=== PATIENT | male | born 1945 | race Caucasian/White ===

== ENCOUNTER 2018-06-10 16:25 | Inpatient (IN) ==
[2018-06-10] MEDS ORDERED: SOLU-MEDROL IV ONE (17:25)
[2018-06-10] MEDS ORDERED: ROCEPHIN 1 GM in NS 50 ML IV ONE (17:25)
[2018-06-10] MEDS ORDERED: NS 1,000 ML IV ONE (17:25)
[2018-06-10] MEDS ORDERED: DUONEB (A & A) INH ONE ×2 (17:25→20:36)
[2018-06-10] MEDS ORDERED: ZITHROMAX 500 MG/NS 500 MG/250 ML IVPB IV ONE (17:25)
[2018-06-10] MEDS ORDERED: ZOSYN 3.375 GM in NS 50 ML IV ONE (17:25)
--- NOTE | 2018-06-10 18:26 | Diag Imaging Result Doc PS360 ---
EXAM: CT ANGIOGRM PULMONARY ARTERIES 06/10/2018 HISTORY: dyspnea, history of lung CA TECHNIQUE: This exam was performed using automated exposure control, adjustment of mA or kV according to patient size, and/or use of iterative reconstruction technique. COMMENT: The current examination is compared to the previous study of 03/20/2016. There is no evidence of filling defects in the pulmonary arteries. The aorta is normal in caliber without evidence of dissection. There is a left pleural effusion. There is some increase in size of the precarinal node which has increased in short axis dimension from 8 to 11 mm. There are multiple nodular opacities present in both lower lobes the right middle lobe and the left upper lobe as well as denser areas of consolidation in the parahilar region of the right lower lobe and extensive consolidation in the left lower lobe. Some of this is presumably due to metastatic disease. The extent of some of the opacities has clearly increased since the previous examination. This is most notable just above the right hemidiaphragm in the lower lobe on image 95 where there is an opacity measuring over 2 cm in transverse dimension which was previously less than 9 mm in diameter. There are old right rib fractures. The appearance of the regional skeleton has not changed significantly since the previous study. IMPRESSION: Worsened pulmonary metastatic disease. No evidence of pulmonary emboli. Left pleural effusion. Electronically signed by Emigdio Saha 06/10/2018 6:23 PM
[2018-06-10 18:52] LABS: BASO# 0.02 X1000 (0.0-0.2); BASO% 0.3 % (0.0-0.8); EOS# 0.11 X1000 (0.0-0.7); EOS% 1.5 % (0.0-10.0); HEMOGLOBIN 15.5 g/dL (14.0-18.0); LYMPH# 1.51 X1000 (1.2-3.4); MCH 26.5 PG (27-31); MCHC 32.3 g/dL (33-37); MCV 82.1 FL (81-99); MONO# 0.76 X1000 (0.11-0.59); MONO% 10.1 % (1.7-9.3); MPV 9.2 FL (7.4-10.4); NEUT# 5.16 X1000 (1.4-6.5); NEUT% 68.1 % (42.2-75.2); PLT 253 X1000 (130-400); RBC 5.85 XMIL (4.7-6.1); RDW 15.1 % (11.5-14.5); WBC 7.56 X1000 (4.8-10.8)
--- NOTE | 2018-06-10 18:59 | PROVIDER DOCUMENTATION ---
This chart was entered by Edna Garcia Scribe, acting as scribe for Deon Scanlon MD. HPI-Respiratory General - General Source: patient, family (/daughter) - History of Present Illness-Resp Quality of Pain: reports: fullness Severity in ED: reports: moderate Onset/Duration: reports: 24 hours ago Timing: reports: still present, constant Exposure: reports: unknown cause Cough Quality/Degree: reports: productive cough (green sputum) Episode Frequency: other (2nd visit toa) Current Respiratory Medication Therapy: Initiated see nurses note Modifying Factors: worse with: exertion, lying down Associated Symptoms: reports: cough, hurts to breathe, shortness of breath Similar Symptoms Previously?: Yes Recently seen or treated by another doctor?: Yes (aw dr scanlon earlier today ) <Deon Scanlon - Last Filed: 06/10/18 18:56> <Rohan Jaquez - Last Filed: 06/10/18 21:13> - General Chief Complaint: Shortness of Breath Stated Complaint: SOB,LUNG CANCER Time Seen by Provider: 06/10/18 16:42 Allergies/Adverse Reactions: Patient Allergies Allergy/AdvReac Type Severity Reaction Status Date / Time aspirin Allergy Unknown Verified 06/10/18 08:55 [From Excedrin Migraine] caffeine Allergy Unknown Verified 06/10/18 08:55 [From Excedrin Migraine] Home Medications: Home Medication List Medication Instructions Recorded Confirmed Last Taken Type Metoprolol [Lopressor] 50 mg PO DAILY 08/21/14 03/20/16 06/10/18 History Inhaler,Assist Dev,Small Mask 1 each MC Q4H PRN #1 spacer 03/08/16 03/20/16 Unknown Rx [Aerochamber Plus Flow-Vu] Levofloxacin [Levaquin] 500 mg PO DAILY #10 tab 07/06/17 Unknown Rx Hydrocodone/Acetaminophen 1 tab PO Q6HR PRN 06/10/18 06/10/18 06/10/18 History [Hydrocodone-Acetamin 7.5-325] - History of Present Illness-Resp Nature of Presenting Problem: 72 yowm presents to the ed with his and daughter with c/o sob. pt was seen earlier today by dr scanlon for same complaint and refused abx and wanted to be discharged. pt sts once he was home he became more sob and knew it would only get worse tonight so they came back to ed. pt sts he will take the CT and abx now and will do what the dr suggest. pt was dx with lung cancer and 12 years ago stopped all tx and was told he had 2 months to live. pt is on continuos home O2 (Edna Garcia) 72 yowm presents to the ed with his and daughter with c/o sob. pt was seen earlier today by dr scanlon for same complaint and refused abx and wanted to be discharged. pt sts once he was home he became more sob and knew it would only get worse tonight so they came back to ed. pt sts he will take the CT and abx now and will do what the dr suggest. pt was dx with lung cancer and 12 years ago stopped all tx and was told he had 2 months to live. pt is on continuos home O2 (Deon Scanlon) Review of Systems - Adult - REVIEW OF SYSTEMS - ADULT Constitutional: denies: chills, fever Eyes: reports: no symptoms reported Ears, Nose, Mouth & Throat: reports: no symptoms reported Cardiovascular: denies: chest pain, palpitations Respiratory: reports: see HPI, cough (green sputum), dyspnea on exertion, shortness of breath Gastrointestinal: denies: diarrhea, nausea, vomiting Genitourinary: reports: no symptoms reported Musculoskeletal: denies: back pain, neck pain Integumentary: reports: no symptoms reported Neurological: denies: dizziness/vertigo, headache/migraines Psychiatric: reports: no symptoms reported Endocrine: reports: no symptoms reported Hematologic/Lymphatic: reports: no symptoms reported Allergic/Immunologic: reports: no symptoms reported All Other Systems: Reviewed and Negative <Deon Scanlon - Last Filed: 06/10/18 18:56> Past History - Adult - PAST MEDICAL HISTORY-ADULT Review of Records: reports: Old Records Reviewed, Nursing Assessment Review, Medications Reviewed, Social history reviewed & non-contributory. Major Childhood Illnesses: reports: denies history Cardiovascular: reports: HTN. denies: CHF, PR Respiratory: reports: cancer (lung--still had but is no longer wanting treatment ), pneumonia Gastrointestinal: reports: denies history Genitourinary: reports: denies history Musculoskeletal: reports: arthritis (RA), chronic pain Neurological: reports: denies history Endocrine/Immune: reports: denies history Other Conditions: reports: denies history - PRIOR SURGERIES/PROCEDURES Surgical/Procedure History: reports: other (lobectomy RLL, RML; port placement) - IMMUNIZATION STATUS Childhood Immunizations: See Nurse Assessment Flu Vaccine: See Nurse Assessment - FAMILY HISTORY Family History: reviewed, not pertinent - SOCIAL HISTORY Smoking: denies Substance Use: denies Living Situation: family <Deon Scanlon - Last Filed: 06/10/18 18:56> Physical Exam-General - PHYSICAL EXAM-ADULT Initial Vital Signs Reviewed: Yes - CONSTITUTIONAL General Appearance: alert, mild distress, obese - EYES Eyes: PERRL/EOMI, pink conjunctivae - HEAD, EARS, NOSE, MOUTH & THROAT HENMT: moist mucous membranes, normal ENT inspection - NECK Neck: full range of motion, supple, normal inspection - RESPIRATORY Respiratory: respiratory distress (mild), decreased breath sounds, rhonchi (L>R) , increased rate (24) - CARDIOVASCULAR Cardiovascular: normal peripheral pulses, regular rate, rhythm - GASTROINTESTINAL (ABDOMEN) Abdominal Exam: normal bowel sounds, non tender, soft - LYMPHATIC Lymphatic: no adenopathy - MUSCULOSKELETAL Back Exam: normal inspection, no CVA tenderness, no vertebral tenderness Extremity: normal range of motion, normal gait, normal inspection, normal capillary refill - SKIN Integumentary: normal color, normal turgor, warm/dry - NEUROLOGIC Neurologic: grossly normal, no motor/sensory deficits - PSYCHIATRIC Psych/Mental Status: normal mood/affect, normal thought content, normal thought process, oriented x 3 <Deon Scanlon - Last Filed: 06/10/18 18:56> Progress - PLAN OF CARE/RESULTS Result Diagrams: 06/10/18 18:15 - REASSESSMENT Reassessment #1 Time Reassessed: 18:57 Status: unchanged (3 duonebs, IV rocephin and zithromax ordered for possible pneumonia. IV steroids (lower dose as this is second dose today) ordered. Awaiting re-evaluation) - CHANGE OF SHIFT REPORT (ED Provider) Report Given and Care Transferred to:: Dr. Jaquez Time of Transfer: 18:58 Items Pending: Labs, Other (re-eval after nebs) <Deon Scanlon - Last Filed: 06/10/18 18:56> - PLAN OF CARE/RESULTS Result Diagrams: 06/10/18 18:15 06/10/18 18:15 <Rohan Jaquez - Last Filed: 06/10/18 21:13> - PLAN OF CARE/RESULTS Progress/Plan/Lab Results: Vital Signs - 8 hr 06/10/18 16:36 06/10/18 18:17 Temperature 98.6 F Pulse Rate 79 112 H Respiratory Rate 22 24 Blood Pressure 161/80 O2 Sat by Pulse Oximetry 96 98 Laboratory Results - last 24 hr 06/10/18 06/10/18 06/10/18 18:15 18:15 18:15 WBC 7.56 RBC 5.85 Hgb 15.5 Hct 48.0 MCV 82.1 MCH 26.5 L MCHC 32.3 L RDW Std Deviation 15.1 H Plt Count 253 MPV 9.2 Immature Gran % (Auto) 0.0 Neut % (Auto) 68.1 Lymph % (Auto) 20.0 L [place] % (Auto) 10.1 H Eos % (Auto) 1.5 Baso % (Auto) 0.3 Immature Gran # (Auto) 0.00 Neut # (Auto) 5.16 Lymph # (Auto) 1.51 [place] # (Auto) 0.76 H Eos # (Auto) 0.11 Baso # (Auto) 0.02 Sodium 135 L Potassium 4.4 Chloride 99 Carbon Dioxide 22 L Anion Gap 14 BUN 11 Creatinine 0.8 Estimated GFR/1.73 m2 > 60 BUN/Creatinine Ratio 14 Glucose 100 Calculated Osmolality 270 Calcium 9.1 Troponin T Gmw-N-Fmcjxupuiuv Pept Plasma Lactate 1.1 06/10/18 06/10/18 18:15 18:15 WBC RBC Hgb Hct MCV MCH MCHC RDW Std Deviation Plt Count MPV Immature Gran % (Auto) Neut % (Auto) Lymph % (Auto) [place] % (Auto) Eos % (Auto) Baso % (Auto) Immature Gran # (Auto) Neut # (Auto) Lymph # (Auto) [place] # (Auto) Eos # (Auto) Baso # (Auto) Sodium Potassium Chloride Carbon Dioxide Anion Gap BUN Creatinine Estimated GFR/1.73 m2 BUN/Creatinine Ratio Glucose Calculated Osmolality Calcium Troponin T < 0.010 Hhi-C-Lnpyqewtuqr Pept 176 Plasma Lactate Orders Category Date Time Status CTA [CT ANGIOGRM PULMONARY ARTERIES] [CT] Stat Exams 06/10/18 17:28 Completed BASIC METABOLIC PANEL [CHEM] Stat Lab 06/10/18 18:15 Completed CBC WITH ELECTRONIC DIFF [HEME] Stat Lab 06/10/18 18:15 Completed LACTATE, PLASMA [CHEM] Stat Lab 06/10/18 18:15 Completed PRO B-NATRIURETIC PEPTIDE Stat Lab 06/10/18 18:15 Completed SPUTUM CULTURE WITH GRAM STAIN [RM] Stat Lab 06/10/18 17:28 Uncollected TROPONIN T Stat Lab 06/10/18 18:15 Completed 0.9% Sodium Chloride Inj [Ns] 1,000 ml Med 06/10/18 17:25 Discontinued IV 999 mls/hr Albuterol 2.5MG/Ipratrop 0.5MG [Duoneb (A & A)] Med 06/10/18 20:36 Discontinued 3 ml INH NOW ONE Albuterol 2.5MG/Ipratrop 0.5MG [Duoneb (A & A)] Med 06/10/18 17:25 Discontinued 9 ml INH NOW ONE Azithromycin 500 mg/Ns [Zithromax 500 mg/Ns] Med 06/10/18 17:25 Discontinued 500 mg in 250 ml IV NOW CefTRIAXONE [Rocephin] 1 gm Med 06/10/18 17:25 Discontinued 0.9% Sodium Chloride Inj [Ns] 50 ml IV NOW Hydrocodone/APAP 5 mg/325 mg [Unity-5] Med 06/10/18 20:35 Discontinued 2 each PO NOW ONE Methylprednisolone Sod Succ [Solu-Medrol] Med 06/10/18 17:25 Discontinued 80 mg IV NOW ONE Piperacillin/Tazobactam [Zosyn] 3.375 gm Med 06/10/18 17:25 Discontinued 0.9% Sodium Chloride Inj [Ns] 50 ml IV NOW Aerosol Treatments Routine Oth 06/10/18 17:26 Completed Aerosol Treatments Routine Oth 06/10/18 20:36 Active Aerosol Treatments Stat Oth 06/10/18 17:26 Completed Aerosol Treatments Stat Oth 06/10/18 20:36 Active blood cultures were done on 1st visit today so there will be no redraw this visit. pt ws seen earlier today and offered abx and pt refused abx and just wanted to go home. (Edna Garcia) blood cultures were done on 1st visit today so there will be no redraw this visit. pt ws seen earlier today and offered abx and pt refused abx and just wanted to go home. (Deon Scanlon) Departure <Deon Scanlon - Last Filed: 06/10/18 18:56> - Departure Date of Disposition Decision: 06/10/18 Time of Disposition Decision: 21:13 Certified Medical Emergency: Emergent - Critical Care Note This patient required my direct & personal management of CC.: No <Rohan Jaquez - Last Filed: 06/10/18 21:13> - Departure DIAGNOSIS: Shortness of breath Disposition: ADMITTED INPATIENT 09 Condition: Stable Referrals and Follow-Ups: Margo Rocha MD [Primary Care Provider] - Attestation - Physician/ ADALGISA Attestation Patient care was provided by Advanced Practice Provider:: No The physician spent face to face time with patient:: Yes Advanced Practice Provider documentation review:: Supervising physician onsite and consulted in the evaluation and care of this patient. The physician did have a face to face encounter with the patient. <Deon Scanlon - Last Filed: 06/10/18 18:56> - Physician/ ADALGISA Attestation Patient care was provided by Advanced Practice Provider:: No The physician spent face to face time with patient:: Yes Advanced Practice Provider documentation review:: Supervising physician onsite and consulted in the evaluation and care of this patient. The physician did have a face to face encounter with the patient. <Rohan Jaquez - Last Filed: 06/10/18 21:13> This chart was documented by the indicated scribe, (Edna Garcia Scribe) and accurately reflects the services I performed and decisions made by , Deon Scanlon MD, as attested by the provider's signature.
[2018-06-10 19:13] LABS: AGAP 14; BUN 11 mg/dL (8-22); CALCIUM 9.1 mg/dL (8.8-10.2); CHLORIDE 99 mmol/L (98-107); COSMO 270; CREATININE 0.8 mg/dL (0.7-1.2); ESTIMATED GFR > 60; GLUCOSE 100 mg/dL (70-104); POTASSIUM 4.4 mmol/L (3.5-5.1); SODIUM 135 mmol/L (136-145); TCO2 22 mmol/L (25-35)
[2018-06-10] MEDS ORDERED: NORCO-5 PO ONE (20:35)
[2018-06-10] MEDS ORDERED: ZOFRAN IV PRN (23:15)
[2018-06-10] MEDS ORDERED: DUONEB (A & A) INH PRN (23:15)
[2018-06-10] MEDS ORDERED: TYLENOL PO PRN (23:15)
[2018-06-10 23:35] LABS: INR 0.95; PROTIME 13.5 Seconds (11.0-16.0)
[2018-06-10 23:36] LABS: PTT 32.4 Seconds (22.3-41.8)
[2018-06-11] MEDS: DUONEB (A & A) INH SCH ×7 (00:05→23:50)
[2018-06-11] MEDS: NORCO-7.5 PO PRN ×3 (04:03→18:43)
--- NOTE | 2018-06-11 07:23 | EKG Report ---
Test Performed on : 06/10/2018 10:40:16 PM Test Reason : SOB Blood Pressure : / mmHG Vent. Rate : 095 BPM Atrial Rate : 095 BPM P-R Int : 212 ms QRS Dur : 088 ms QT Int : 370 ms P-R-T Axes : 032 -27 031 degrees QTc Int : 464 ms Sinus rhythm. with sinus arrhythmia. with 1st degree AV block. Otherwise normal ECG When compared with ECG of 10-JUN-2018 09:16, (Unconfirmed) No significant change was found Confirmed by Briseyda FLOR, Angelito Cheung ([id number]) on 06/11/2018 9:22:28 AM
[2018-06-11 07:40] LABS: HEMATOCRIT 45.2 % (42.0-52.0); HEMOGLOBIN 14.7 g/dL (14.0-18.0); IMM GRAN# 0.02 X1000 (0.0-0.04); IMM GRAN% 0.3 % (0.0-0.5); LYMPH% 5.8 % (20.5-51.1); MCH 26.6 PG (27-31); MCHC 32.5 g/dL (33-37); MCV 81.9 FL (81-99); MONO# 0.11 X1000 (0.11-0.59); MONO% 1.6 % (1.7-9.3); MPV 9.1 FL (7.4-10.4); NEUT# 6.35 X1000 (1.4-6.5); NEUT% 92.3 % (42.2-75.2); PLT 231 X1000 (130-400); RBC 5.52 XMIL (4.7-6.1); RDW 14.9 % (11.5-14.5); WBC 6.88 X1000 (4.8-10.8)
[2018-06-11 07:55] LABS: BANDS 10 % (0-1); LYMPHS 10 % (21-51); MONO 2 % (1-9); SEGS 78 % (42-75)
[2018-06-11 07:58] LABS: AGAP 15; ALBUMIN 3.7 g/dL (3.5-5.0); ALKALINE PHOSPHATASE 86 U/L (32-122); BUN 13 mg/dL (8-22); CALCIUM 9.1 mg/dL (8.8-10.2); CHLORIDE 96 mmol/L (98-107); COSMO 269; CREATININE 0.9 mg/dL (0.7-1.2); ESTIMATED GFR > 60; GLUCOSE 141 mg/dL (70-104); GOT 16 U/L (10-34); GPT 13 U/L (10-44); SODIUM 133 mmol/L (136-145); TCO2 22 mmol/L (25-35); TOTAL BILIRUBIN 0.42 mg/dL (0.20-1.00); TOTAL PROTEIN 7.5 g/dL (6.3-8.3)
[2018-06-11] MEDS: SOLU-MEDROL IV SCH ×2 (09:16→21:56)
[2018-06-11] MEDS: LOPRESSOR PO SCH (09:16)
[2018-06-11] MEDS: LOVENOX SUBQ SCH (09:17)
[2018-06-11] MEDS: LIDODERM TOP SCH (11:45)
--- NOTE | 2018-06-11 12:12 | HISTORY AND PHYSICAL ---
PRIMARY CARE PHYSICIAN: Dr. Rocha ONCOLOGIST: Previously Dr. Thomas. DATE AND TIME: 06/10/2018 at 2130. CHIEF COMPLAINT: Dyspnea. HISTORY OF PRESENT ILLNESS: Mr. Travis Grove is a 72-year-old male with a past medical history of lung cancer status post right middle and right lower lobectomies and chemotherapy. He also has a history of arthritis and hypertension. The patient states that he did receive chemotherapy treatments for a period of 5 years, though in 11/2011, the patient decided not to receive any further chemotherapy. This was at the time of his last treatment. The last time that he was seen by Dr. Thomas was in 2014. Since that time, the patient has continued to not pursue any further treatment for his lung cancer, though approximately a week and a half ago, the patient did have a productive cough with initially white-colored sputum though now states that it has been greenish brown. He also did have some body aches. He states that secondary to this, he did start an vwwi-ebo-suzhhvr medicine for prophylactic treatment of the flu. The medication name is oscillococcinum. The patient states that the first dose he took of this he did not have any adverse symptoms, though after he took the second dose, he did begin to have dyspnea. The patient states that his shortness of breath started on Thursday, though it continued to get worse. He did present to the ER early morning for treatment. He was treated and ultimately discharged. The patient states that after returning home, his symptoms did not improve, and he returned back to the ER on evening for further treatment and evaluation. The patient denies any headache or dizziness. He denied any chest pain. He denied any abdominal pain, nausea, vomiting or diarrhea. He denied any dysuria or urinary frequency, though did state that he has occasional swelling in his lower extremities, though this is not present at this time. He denied having any fever. Upon evaluation in the ER, they did perform CT angiogram of pulmonary arteries which did show that the patient had a left pleural effusion. He had an increase in the size of a precarinal node. There were also multiple nodular opacities present in both inferior lobes of the right and left lung as well as the right middle lobe and left upper lobe. There were also denser areas of consolidation in the perihilar region and extensive consolidation in the left lower lobe. This was believed due to be due to metastatic disease. There were also some opacities that were increased in size since the previous exam. There was no evidence of a pulmonary emboli. Despite the patient taking breathing treatments at home, his dyspnea has worsened. At this time, he will be admitted for further treatment and evaluation of his dyspnea and possible pneumonia as well as for a consult with Oncology with Dr. Thomas. REVIEW OF SYSTEMS: A 14-point review of systems was conducted with the patient , and all were negative except for pertinent positives mentioned in the above HPI. PAST MEDICAL HISTORY: 1. Malignant lung cancer. 2. Arthritis. 3. Hypertension. 4. Chronic pain. 5. History of chemotherapy for a period of 5 years, which the patient ultimately did decide to stop treatment in 11/2011 and has not had any since. PAST SURGICAL HISTORY: 1. Right lower and middle lobectomy. 2. Fatty tumor removal in the right groin area. ALLERGIES: The patient has allergies listed of aspirin and caffeine, though the patient states that he specifically cannot take Excedrin Migraine, that he does take aspirin daily with no reported adverse reactions and does have caffeine intake with no reported adverse reactions. HOME MEDICATIONS: 1. [place] 7.5 mg 1 tablet p.o. q.6 hours p.r.n. for pain. 2. Metoprolol 25 mg p.o. daily. SOCIAL HISTORY: The patient has no known history of alcohol, tobacco, or illicit drug use. He is . His was present at bedside during our examination. The patient does require ambulation assistance with cane and at times a motorized scooter or motorized wheelchair. FAMILY HISTORY: Positive for his mother passing away at age 86 secondary to complications from heart disease. His father had a history of heart disease as well and lung disease. DIAGNOSTIC DATA: Laboratory results show white blood cell count is 7560, hemoglobin 15.5, hematocrit 38, platelet count is 253. PT is 13.5. INR is 0.95. PTT is 32.4. Sodium is 135, potassium 4.4, chloride 99, serum bicarb is 22, BUN is 11, creatinine 0.8, glucose 100, calcium 9.1. Troponin is less than 0.01. ProBNP is 176. Plasma lactate is 1.1. CT angiogram of pulmonary arteries did show worsened pulmonary metastatic disease with multiple nodular opacities in both lungs as well as denser areas of consolidation. This was presumed to be secondary to metastatic disease. There was also a left pleural effusion, though there was no evidence of pulmonary embolism. Please see CT report for further detail of findings. PHYSICAL EXAMINATION: VITAL SIGNS: Temperature is 98.2, heart rate 96, respirations 20, blood pressure 148/64, oxygen saturation is 97% on nasal cannula at 4 L. GENERAL: Mr. Grove is a very pleasant 72-year-old male. He is resting in the ER stretcher. He was in no acute distress. He was awake and alert and able to answer all questions appropriately. HEENT: Head is atraumatic and normocephalic. Pupils are equal, round and reactive to light, were 3 mm bilaterally and brisk. Oral mucosa was moist. Oropharynx was clear. NECK: Supple. Trachea midline. CARDIOVASCULAR: The patient has normal S1 and S2. No murmurs, gallops or rubs appreciated, with a regular rate and rhythm. PULMONARY: The patient has symmetrical chest expansion bilaterally. Lung sounds in bilateral [place] did have expiratory wheezing noted. He also did have diminished lung sounds in the right lower lung field. This is likely secondary to history of right middle and lower lobectomy. ABDOMEN: Soft, nontender and nondistended. Bowel sounds were present in all 4 quadrants and were normoactive. EXTREMITIES: No cyanosis, clubbing or edema noted. Pulse, motor and sensory are intact in all extremities. Radial pulses and pedal pulses are 2+ bilaterally. INTEGUMENTARY: The patient's skin is pink, warm and dry. NEUROLOGICAL: The patient is alert and oriented to person, place, time, and situation. There does not appear to be any focal neurological deficit noted. ASSESSMENT AND PLAN: 1. History of lung cancer. As previously mentioned in the above HPI, the patient did previously have right middle and lower lobectomy secondary to this. He also did receive chemotherapy treatments for reportedly 5 years but ultimately did decide to stop these treatments in 11/2011. He reports the last time he was seen by Dr. Thomas was in 2014. At this time, the patient would like to be seen by Dr. Thomas for information on any possible further treatment options. Given this, we have placed a consult with Dr. Thomas and will await his evaluation and further recommendations for management. 2. Possible pneumonia. Given the mention of possible areas of opacities as well as consolidation, we have this patient with antibiotic coverage of Rocephin and azithromycin. Blood culture as well as sputum culture have been ordered. We will continue with aggressive pulmonary toilet with scheduled DuoNeb treatments, incentive spirometry, and encouragement of turn, cough, and deep breathing. 3. Hypertension. We will continue his metoprolol. 4. History of arthritis and chronic pain. We will continue with [place]. 5. DVT prophylaxis will be provided with Lovenox 40 mg subcutaneously daily. The patient has been placed on the Medical Floor with telemetry. Follow vital signs q.4 hours. Strict intake and output. He will be on a heart healthy diet. We have also placed orders of Solu Medrol 40 mg IV q.12 hours with his respiratory symptoms. We did discuss resuscitation status with the patient, and he has decided to make himself a do not resuscitate level 1. He did not want intubation, chest compressions, emergency cardiac medicines or defibrillation. An order for level 1 DNR has been placed in the computer. Further orders and recommendations pending hospital course, diagnostic studies and physician evaluation. Dictated by MATEUS Dillon for Nicola Joshua MD cc: Nicola Joshua MD [id number]
--- NOTE | 2018-06-11 12:15 | PROGRESS NOTE ---
DATE: 06/11/2018 SUBJECTIVE: The patient reports that he is breathing better with breathing treatments. Denies any other complaints. Pain is under control. Except some pain in both shoulders. OBJECTIVE: Vital Signs: Temperature 98.5 degrees, heart rate 112, respiratory rate 16, blood pressure 138/74, O2 saturation 97% on 3 L nasal cannula. General: This is a chronically ill- appearing, 72-year-old, male lying in bed, in no acute distress. HEENT: Head is normocephalic and atraumatic. Neck: No JVD noted. No carotid bruits. No lymphadenopathy. No thyromegaly. Cardiovascular: S1, S2 heard. No murmurs, gallops, or rubs. Regular rate and rhythm. Respiratory: There are decreased breath sounds globally. Minimal coarse breath sounds in both pulmonary bases. The patient is not using any accessory muscles or having work of breathing. Abdomen: Soft. Nontender to palpation. Bowel sounds present. No organomegaly. Extremities: No clubbing, cyanosis, or edema. Peripheral pulses present in both legs. Neurological: The patient alert and oriented x3. Moves 4 extremities. LABORATORY DATA: Hemoglobin is normal. Rest of the CBC is okay. BMP shows sodium 133. Normal renal function. Glucose 142. ASSESSMENT AND PLAN: History of lung cancer. I had a long conversation with this patient. He reports the first time lung cancer was diagnosed was in 2004. Since then, he had a surgery at [facility]. He had a partial pneumonectomy, according to him, and he was receiving chemotherapy. He has been initially seen at [facility] and then he transferred his oncology care to [place] where Dr. Thomas was taking care of him. In 2011 he decided to continue with chemotherapy and since then apparently he has been stable. He has been seen by Dr. Thomas a few times since then. The reason why he came to the emergency department was because he was shortness of breath. He reports that with breathing treatments, he is getting better. I talked to him about what we can do for him here if he continues to refuse any chemotherapy for his conditions, but he is still wants to talk with Dr. Thomsa. I also offered him to have hospice service in case he is not interested in having active treatment for cancer, but he refused again and said that he is not ready yet. At this time, we are going to keep him in the hospital 24 hours, optimize pain medication, and if he is feeling better, I think we can send him home, but I think we need to talk to him about hospice. At this time, will continue to monitor this patient closely. cc: Hussein Stafford MD
--- NOTE | 2018-06-11 14:59 | HEMO/ONC CONSULTATION ---
DATE: 06/11/2018 CHIEF COMPLAINT: We are being consulted for further management of patient's lung cancer. HISTORY OF PRESENT ILLNESS: Mr. Grove is a 72-year-old male who presented to the emergency room on 06/10/2018 complaining of increased shortness of breath, increased cough. The patient denied any chills, fever. No nausea, vomiting. No diarrhea. While in the Emergency Department, he had a pulmonary arteriogram that showed worsened pulmonary metastatic disease. No evidence of pulmonary emboli or pleural effusion. Due to increased shortness of breath and increased oxygen requirements, the patient was admitted for further evaluation and management at that time. The patient is well known to us in our clinic where he used to be followed up for stage IV bronchioalveolar carcinoma. The patient was started on Alimta in 04/07/15 and stopped Alimta on 12/15/2015. The patient wanted to stop treatment in March 2016 and has not had any treatment since then due to scans at that time showing increase in pulmonary nodules and disease. So all treatment options were stopped and the patient has not returned for another appointment since that time. PAST MEDICAL HISTORY: Stage IV bronchioloalveolar carcinoma, hypertension, arthritis. FAMILY HISTORY: Myocardial infarction, hypertension, diabetes, cancer. SOCIAL HISTORY: Denies any tobacco, alcohol, illicit drug use. ALLERGIES: Allergic to aspirin and caffeine. REVIEW OF SYSTEMS: As listed in history of present illness. HOME MEDICATIONS: Convent 7.5, Lopressor. PHYSICAL EXAMINATION: Vital Signs: Temperature 98.5 degrees, heart rate 112, respiratory rate 18, blood pressure 130/74, saturating 97% on nasal cannula. General: Patient is awake, lying in bed, no acute distress noted. HEENT: Anicteric. Pupils PERRLA. Mucosa dry. Neck: Supple. Trachea midline. No JVD. Lymph node survey: Palpable lymphadenopathy. Chest : Bilateral breath sounds diminished bilaterally. Abdomen: Soft, nontender. Bowel sounds present in all 4 quadrants. Skin: Warm, dry and intact. Neurologic: Alert and oriented x3. No focal deficits noted. LABORATORY DATA: White count 6.88, hemoglobin 14.7, hematocrit 45.2, platelets are 231,000. Potassium 4, BUN 13, creatinine 0.9. RADIOLOGY REPORTS: CT angiogram pulmonary artery showed worsened pulmonary metastatic disease. No evidence of pulmonary emboli. Left pleural effusion. ASSESSMENT AND PLAN: 1. Metastatic lung carcinoma: The patient wanted to think about further treatment options at this time. The patient will discuss with family and once discharged and back to baseline, we will consider other treatment options. In the past we had talked about immunotherapy as in [facility]. We will continue to monitor and make further recommendations. 2. Possible pneumonia: Continue recommendations per primary medical team. Continue antibiotics. 3. Hypertension. Continue home medications as ordered by Primary Medical Team. 4. Deep venous thrombosis prophylaxis, continue Lovenox daily as ordered. Plan of care discussed with Dr. Thomas. Dictated by MATEUS Mcpherson for Ken Thomas MD cc: MATEUS Mcpherson MD [facility]
[2018-06-11] MEDS ORDERED: ROCEPHIN 1 GM in NS 50 ML IV SCH (19:00)
[2018-06-11] MEDS ORDERED: ZITHROMAX 500 MG/NS 500 MG/250 ML IVPB IV SCH (20:00)
[2018-06-12] MEDS: DUONEB (A & A) INH SCH ×6 (03:16→23:23)
[2018-06-12] MEDS: NORCO-7.5 PO PRN ×3 (03:58→21:52)
[2018-06-12] MEDS: LOVENOX SUBQ SCH (06:29)
[2018-06-12 08:07] LABS: BASO# 0.01 X1000 (0.0-0.2); BASO% 0.1 % (0.0-0.8); HEMATOCRIT 44.9 % (42.0-52.0); HEMOGLOBIN 14.5 g/dL (14.0-18.0); IMM GRAN# 0.04 X1000 (0.0-0.04); IMM GRAN% 0.3 % (0.0-0.5); LYMPH# 0.43 X1000 (1.2-3.4); LYMPH% 3.2 % (20.5-51.1); MCH 26.7 PG (27-31); MCHC 32.3 g/dL (33-37); MCV 82.5 FL (81-99); MONO# 0.35 X1000 (0.11-0.59); MONO% 2.6 % (1.7-9.3); MPV 9.5 FL (7.4-10.4); NEUT# 12.56 X1000 (1.4-6.5); NEUT% 93.8 % (42.2-75.2); PLT 266 X1000 (130-400); RBC 5.44 XMIL (4.7-6.1); RDW 15.1 % (11.5-14.5); WBC 13.39 X1000 (4.8-10.8)
[2018-06-12 08:18] LABS: AGAP 12; BUN 22 mg/dL (8-22); CALCIUM 9.4 mg/dL (8.8-10.2); CHLORIDE 100 mmol/L (98-107); COSMO 279; CREATININE 0.8 mg/dL (0.7-1.2); ESTIMATED GFR > 60; GLUCOSE 137 mg/dL (70-104); POTASSIUM 4.6 mmol/L (3.5-5.1); SODIUM 137 mmol/L (136-145); TCO2 25 mmol/L (25-35)
[2018-06-12] MEDS: LIDODERM TOP SCH (08:52)
[2018-06-12] MEDS: LOPRESSOR PO SCH (08:52)
[2018-06-12] MEDS: SOLU-MEDROL IV SCH ×2 (08:52→21:52)
[2018-06-12] MEDS ORDERED: VANCOMYCIN IV PER PHARMACY MISC SCH (15:15)
[2018-06-12] MEDS: TESSALON PO SCH ×2 (15:26→21:52)
[2018-06-12] MEDS: DURAGESIC 12 MICROGM/HR PATCH TD SCH (15:26)
[2018-06-12] MEDS: MAXIPIME 1 GM in NS 50 ML IV SCH (15:27)
[2018-06-12] MEDS ORDERED: TESSALON PO SCH (17:00)
[2018-06-12] MEDS: VANCOMYCIN 2 GM in NS 500 ML IV SCH (17:35)
[2018-06-12] MEDS: MUCOMYST 20% INH SCH (19:25)
[2018-06-12] MEDS ORDERED: MIRALAX PO SCH (21:00)
--- NOTE | 2018-06-12 23:07 | HEMO/ONC PROGRESS NOTE ---
DATE: 06/12/2018 SUBJECTIVE: The patient says he is slowly feeling better. Shortness of breath slowly improving. OBJECTIVE: Vital Signs: Temperature 97.6 degrees, heart rate 93, respiratory rate 18, blood pressure is 157/62, saturation 97% on nasal cannula. General: Patient is awake, lying in bed. No acute distress noted. HEENT: Anicteric. Pupils are PERRLA. Mucous membranes moist. Cardiovascular: S1, S2. Regular rate and rhythm. Chest: Bilateral breath sounds, diminished bilaterally. Abdomen: Soft, nontender. Bowel sounds present in all quadrants. Neurologic: Alert and oriented x3. No focal deficits noted. LABORATORY DATA: White blood cell count 13.39, hemoglobin 14.5, hematocrit 44.9, platelets are 266. Potassium 4.6, BUN 22, creatinine 0.8. ASSESSMENT AND PLAN: 1. Metastatic lung adenocarcinoma: The patient will follow up in clinic as an outpatient to discuss further treatment options at that time. The patient knows to call and make an appointment once he is discharged. 2. Possible pneumonia: Continue recommendations per primary team. Continue antibiotics. 3. Deep venous thrombosis prophylaxis. Continue Lovenox as ordered. Dictated by MATEUS Mcpherson for Ken Thomas MD cc: MATEUS Mcpherson MD
--- NOTE | 2018-06-13 01:22 | PROGRESS NOTE ---
DATE: 06/12/2018 SUBJECTIVE: Today, Mr. Grove refers to be doing fairly the same. Still has some residual shortness of breath and chest discomfort, and is coughing a whole lot. He said he just wants to breathe better. OBJECTIVE: Vital Signs: Blood pressure is 162/81, pulse is 84, respiration is 18, temperature 98.1 degrees. General: Mr. Grove is a 72-year-old gentleman. He is in mild respiratory distress. He is on nasal cannula, at 4 L, and he is saturating about 97%. He was sitting up in a chair. HEENT: Mucosa pink and moist. Neck: Supple. Chest: Air entry was bilaterally reduced, more so to the left posterior lung field. Cardiovascular: Regular rate and rhythm. Abdomen: Soft, nontender. Extremities: No pedal edema. CHARTER DRIVER: Patient is awake, alert, oriented. There is no focal neurological deficit. LABORATORY DATA: WBC is 13.39, hemoglobin is 14.5, platelet count of 266,000. Chemistry is also reviewed, and is completely normal. 1. A CTA of the lung did show worsening pulmonary metastatic disease. No evidence of pulmonary emboli. There is a left pleural effusion. ASSESSMENT: 1. Metastatic lung cancer. The patient has declined to any form of chemo. He did have a right partial pneumonectomy a couple years ago in [facility]. 2. Qatmk-an-womxgen hypoxemic respiratory failure, secondary to worsening metastatic lung disease, as well as possible pneumonia. 3. Left lower lobe pneumonia, suspicious to be postobstructive pneumonia, with pleural effusion. We will continue with antibiotics. I have changed the current antibiotics to broaden it to cefepime with vancomycin to target MRSA and other strong Gram negative bugs. 4. Chronic pain syndrome, secondary to underlying malignancy. We will optimize patient's pain medications. I have added a fentanyl patch and p.r.n. morphine. 5. Dyspnea, secondary to underlying pulmonary metastasis, pneumonia, and pleural effusion. PLAN: In general, Mr. Grove is known to have stage IV bronchoalveolar carcinoma, as per Heme-Onc notes, who has survived the disease for the past 8 years. According to him, he was given 6 months to live, and he stopped taking chemo. He does not plan to go back on chemo anyway. We will continue with the current antibiotics over the weekend, and re-evaluate him on Thursday with a repeat chest x-ray. We have also talked some on hospice care, and the patient is willing to talk to hospice on Thursday. We will get Palliative Medicine also to see him. cc: Reji Armas MD
[2018-06-13] MEDS: DUONEB (A & A) INH SCH ×6 (03:15→23:18)
[2018-06-13] MEDS: MAXIPIME 1 GM in NS 50 ML IV SCH ×2 (03:29→15:40)
[2018-06-13] MEDS: LOVENOX SUBQ SCH (05:54)
[2018-06-13 07:38] LABS: EOS# 0.03 X1000 (0.0-0.7); EOS% 0.2 % (0.0-10.0); HEMATOCRIT 47.1 % (42.0-52.0); HEMOGLOBIN 15.1 g/dL (14.0-18.0); IMM GRAN# 0.04 X1000 (0.0-0.04); IMM GRAN% 0.3 % (0.0-0.5); LYMPH# 0.57 X1000 (1.2-3.4); LYMPH% 4.5 % (20.5-51.1); MCH 26.8 PG (27-31); MCHC 32.1 g/dL (33-37); MCV 83.7 FL (81-99); MONO# 0.39 X1000 (0.11-0.59); MONO% 3.1 % (1.7-9.3); MPV 9.3 FL (7.4-10.4); NEUT# 11.72 X1000 (1.4-6.5); NEUT% 91.9 % (42.2-75.2); PLT 252 X1000 (130-400); RBC 5.63 XMIL (4.7-6.1); RDW 15.4 % (11.5-14.5); WBC 12.75 X1000 (4.8-10.8)
[2018-06-13 08:04] LABS: AGAP 10; BUN 23 mg/dL (8-22); CALCIUM 8.5 mg/dL (8.8-10.2); CHLORIDE 102 mmol/L (98-107); COSMO 285; ESTIMATED GFR > 60; GLUCOSE 191 mg/dL (70-104); POTASSIUM 4.3 mmol/L (3.5-5.1); SODIUM 138 mmol/L (136-145); TCO2 26 mmol/L (25-35)
[2018-06-13] MEDS: MUCOMYST 20% INH SCH ×2 (08:04→19:52)
[2018-06-13] MEDS: LOPRESSOR PO SCH (08:26)
[2018-06-13] MEDS: TESSALON PO SCH ×3 (08:27→20:24)
[2018-06-13] MEDS: LIDODERM TOP SCH (08:28)
[2018-06-13] MEDS: MIRALAX PO SCH (08:28)
[2018-06-13] MEDS: SOLU-MEDROL IV SCH ×2 (08:28→20:24)
[2018-06-13] MEDS: NORCO-7.5 PO PRN ×2 (08:28→20:23)
--- NOTE | 2018-06-13 12:02 | PROGRESS NOTE ---
DATE: 06/13/2018 SUBJECTIVE: This morning Mr. Grove refers to be feeling the same. Some shortness of breath. He did also say that he has been having some issues with swallowing solid food, but this is not new. OBJECTIVELY: Vitals: Blood pressure is 133/66, pulse is 101, respiration is 18 , temperature 98 degrees. Patient was saturating 97% on 4 L of nasal cannula. General: Mr. Grove is a 72-year-old gentleman. He was in bed in mild respiratory distress. HEENT: Mucosa is pink and moist. Anicteric. Acyanotic. Neck: Supple. Chest: Air entry was bilaterally reduced. There are crackles posteriorly, more so to the left posterior lung field. Cardiovascular: Regular rate and rhythm. There are no murmurs, no rubs, no gallops. [place] beat was at the 5th intercostal space midclavicular line. GI: Abdomen soft, nontender. Bowel sounds present. Extremities: No pedal edema. CLIENT COORDINATOR: Patient was awake, alert, oriented. There is no focal neurological deficit. LABORATORY DATA: WBC is 12.75, hemoglobin is 15.1, platelet count of 252,000. Chemistry is also reviewed. Sodium is 138, potassium is 4.4, chloride is 102, bicarb is 26. CURRENT MEDICATIONS: 1. Cefepime 1 g q.12, today is day 1. 2. Fentanyl patch. 3. Metoprolol 25 daily. 4. Solu-Medrol 40 mg IV q.12. 5. Vancomycin per pharmacy protocol. ASSESSMENT: 1. Acute on chronic hypoxemic respiratory failure secondary to worsening metastatic bronchoalveolar lung cancer as well as some superimposed postobstructive pneumonia. We will continue with oxygen supplementation and treatment of the pneumonia. 2. Left lower lobe pneumonia suspicious for postobstructive type. The patient is currently on IV antibiotics and will continue. 3. Advanced metastatic lung cancer. The patient has declined to adjuvant therapy. He had a right partial pneumonectomy a couple of years ago in [facility]. 4. Chronic pain syndrome secondary to underlying malignancy. Patient is currently on fentanyl patch and p.r.n. morphine. He refers to be feeling a lot better. 5. Dyspnea, secondary to underlying lung disease. 6. Dysphagia to solids. According to the patient, he does well with soft and liquid diet. I did offer to do a barium meal and also have Gastroenterology to evaluate him, but he declines to that. He said that would not help with his breathing, which I agree, and if it is not going to help with his breathing, then he does not want any evaluation in that regard. PLAN: In general, I think Mr. Grove is critical because of his advanced cancer, which I think all his symptoms are secondary to the cancer. We have talked slightly about hospice. He will prefer palliative medicine to see him tomorrow, so I have put in a consult and we will re-evaluate him tomorrow and talk more as well on hospice care, which he is open to. cc: Reji Armas MD MTDD
[2018-06-13] MEDS: VANCOMYCIN 2 GM in NS 500 ML IV SCH (17:27)
[2018-06-14] MEDS: DUONEB (A & A) INH SCH ×6 (03:35→23:00)
[2018-06-14] MEDS: MAXIPIME 1 GM in NS 50 ML IV SCH ×2 (03:40→14:26)
[2018-06-14] MEDS: LOVENOX SUBQ SCH (06:00)
[2018-06-14 07:34] LABS: BASO# 0.01 X1000 (0.0-0.2); BASO% 0.1 % (0.0-0.8); HEMATOCRIT 45.3 % (42.0-52.0); HEMOGLOBIN 14.4 g/dL (14.0-18.0); IMM GRAN# 0.07 X1000 (0.0-0.04); IMM GRAN% 0.6 % (0.0-0.5); LYMPH# 0.43 X1000 (1.2-3.4); LYMPH% 3.6 % (20.5-51.1); MCH 26.6 PG (27-31); MCHC 31.8 g/dL (33-37); MCV 83.6 FL (81-99); MONO# 0.52 X1000 (0.11-0.59); MONO% 4.4 % (1.7-9.3); NEUT# 10.77 X1000 (1.4-6.5); NEUT% 91.3 % (42.2-75.2); PLT 239 X1000 (130-400); RBC 5.42 XMIL (4.7-6.1); RDW 15.3 % (11.5-14.5)
[2018-06-14 07:46] LABS: AGAP 10; BUN 27 mg/dL (8-22); CHLORIDE 103 mmol/L (98-107); COSMO 287; ESTIMATED GFR > 60; GLUCOSE 174 mg/dL (70-104); SODIUM 139 mmol/L (136-145); TCO2 26 mmol/L (25-35)
[2018-06-14 08:08] LABS: BANDS 2 % (0-1); LYMPHS 2 % (21-51); MONO 2 % (1-9); SEGS 90 % (42-75)
[2018-06-14] MEDS: LOPRESSOR PO SCH (08:45)
[2018-06-14] MEDS: MIRALAX PO SCH (08:45)
[2018-06-14] MEDS: SOLU-MEDROL IV SCH ×2 (08:45→20:40)
[2018-06-14] MEDS: TESSALON PO SCH ×3 (08:45→20:41)
--- NOTE | 2018-06-14 09:56 | Diag Imaging Result Doc PS360 ---
EXAM: CHEST-2 VIEWS HISTORY: hypoxia TECHNIQUE: Chest two views COMPARISON: 06/10/2018 FINDINGS: Poor inspiratory effort. There are small bilateral pleural effusions. There is bilateral basilar atelectasis. Mid left masslike density is similar to the prior exam. No change in the left portacatheter. IMPRESSION: Stable exam. Electronically signed by Se Paige 06/14/2018 9:54 AM
[2018-06-14] MEDS: LIDODERM TOP SCH (11:05)
[2018-06-14] MEDS: MUCOMYST 20% INH SCH ×2 (11:24→19:10)
[2018-06-14] MEDS: MORPHINE IV PRN (12:19)
--- NOTE | 2018-06-14 13:14 | PROGRESS NOTE ---
DATE: 06/14/2018 SUBJECTIVE: This morning, Mr. Grove refers to be feeling the same, coughing and having a lot of mucus in the throat. He did reveal to me that Dr. Thomas has come to see him today and that from Dr. Thomas's assessment, the cancer is stable and that his main problem is the pneumonia. OBJECTIVE: Vital signs: Blood pressure is 166/77, pulse is 72, respirations 19 , temperature is 98.5 degrees. General: Mr. Grove is a 72-year-old gentleman. He is in bed, no distress. HEENT: Mucosa is pink and moist. Anicteric. Acyanotic. Neck: Supple. Chest: Air entry is bilaterally reduced. There is diffuse end expiratory wheezing associated with crackles posteriorly. Cardiovascular: Regular rate and rhythm. No murmurs, no rubs, no gallops. Abdomen: Soft, nontender. Bowel sounds present. Extremities: No pedal edema. Distal pulses present. MATERIAL STRESS TESTER: Patient is awake, alert, oriented. There is no focal neurological deficit. Musculoskeletal: There is an old surgical scar from the back of the right hemithorax consistent with a previous pneumonectomy. LABORATORY DATA/IMAGING: WBC is 11.80, hemoglobin is 14.4, platelet count of 236,000. Chemistry is also reviewed and is completely unremarkable. A chest x-ray this morning shows stable. Sputum culture shows normal ceferino. The patient is currently on cefepime and vancomycin. ASSESSMENT: 1. Acute on chronic hypoxemic respiratory failure secondary to a combination of worsening bronchoalveolar lung cancer with possible superimposed postobstructive pneumonia. The patient is currently on oxygen supplementation and treatment for the pneumonia. He has been evaluated by Dr. Thomas and according to the patient, Dr. Thomas thinks that the main issue here is the pneumonia, which I do not see that much, so I will get Pulmonary Medicine as well as Infectious Disease to help us with the management of this patient. 2. Left lower lobe pneumonia suspicious for postobstructive type. The patient is currently on cefepime and vancomycin. Today is day 2 on IV antibiotics. We will continue. 3. Advanced stage IV bronchoalveolar lung cancer. The patient has declined adjuvant therapy in the past. He is also status post right partial pneumonectomy a couple of years ago at [facility]. Dr. Thomas is following. 4. Chronic pain syndrome secondary to underlying malignancy. Patient is on opioid therapy. 5. Dysphagia to solid. The patient says he is fine taking gastrointestinal soft diet and liquids and he does not want any GI intervention. PLAN: 1. So in general, Mr. Grove is a 72-year-old male who is known to have metastatic lung cancer (bronchoalveolar type as per oncology documentation). He came to the emergency department because of shortness of breath and has been admitted for the past 4 days. A CTA of the lungs which was done on presentation did reveal worsening of pulmonary metastatic disease. However, Hematology/Oncology seems to think that the disease is stable. Of course, Dr. Thomas might have other studies that we do not have in the hospital system. I have consulted Infectious Disease and Pulmonary Medicine to evaluate the patient as well. 2. I had earlier on discussed hospice and palliative care with Mr. Grove and he seems to be in agreement. However, it appears that after Dr. Thomas's visit today, he has changed his mind and for now, we will continue treating his possible pneumonia and await for the recommendations from the other subspecialties consulted. cc: Reji Armas MD [facility]
--- NOTE | 2018-06-14 16:08 | INFECTIOUS DISEASE CONSULT REP ---
DATE: 06/14/2018 CONCLUSION: 1. The patient has in the left lung a mass-like lesion. Whether this represents his cancer or whether it represents cancer that has caused obstruction with resulting pneumonia is unclear at this time. I think there could be a pneumonia present in view of the fact that the patient has been complaining that in the past 5 days he has become more dyspneic and he is coughing and bringing up a green sputum. 2. Patient may have an immunoglobulin deficiency as well. RECOMMENDATIONS: I agree with treating the patient with a combination of vancomycin and cefepime. I have increased the dose of cefepime to 2 g IV every 12 hours. I have also ordered immunoglobulin levels. DISCUSSION: The patient as mentioned above in the past 5 days has become more dyspneic. He is coughing and bringing up sputum that has a green color to it. He is unsure if he has had any fever. He has not had any shaking chills. Studies thus far show a CBC with a white count of 11,800, hemoglobin 14.4, platelet count 239,000. Creatinine is 1, GFR is greater than 60. Sputum grew normal ceferino. The patient's chest x-ray shows a left-sided mass. It also shows the left- sided Port-A-Cath that the patient has. PAST MEDICAL HISTORY/REVIEW OF SYSTEMS: Eyes and ears: No difficulty hearing or seeing. Neck: No stiffness. Bones, joints, muscles: Patient is complaining of myalgias. He also has joint pain primarily in the hips and knees and shoulders. Endocrine: Patient does not have diabetes or thyroid disease. Neurologic: Patient has not lost recently any motor or sensory function. Cardiac: No chest pain or palpitations. Respiratory: See Present Illness. Integument: No rash. 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 He has had renal calculi. He has had lithotripsy treatment for renal calculi. He has had resection of part of his lung that had a tumor in it. The patient has also been in the hospital because of pneumonia. MEDICAL DISEASES: Positive for hypertension. The patient's lung cancer is metastatic. INFECTIOUS DISEASE HISTORY: Positive for pneumonia. Negative for UTI. FAMILY HISTORY: Positive for hypertension, myocardial infarction, and cancer. SOCIAL HISTORY: [place] He is . He has dogs for pets. He does not smoke cigarettes, drink alcoholic beverages, or abuse drugs. He is disabled. ALLERGIES: He is allergic to Excedrin. MEDICATION: His home medicines include Mucomyst, DuoNeb, Tessalon, Lovenox, fentanyl patch, hydrocodone, Lidoderm, Solu-Medrol Lopressor, morphine, Zofran, MiraLAX. PHYSICAL EXAMINATION: Vital Signs: Temperature is 98.5 degrees, pulse 72, respirations 19, blood pressure 166/77. Weight: The patient weighs 221 pounds. General: This is a fairly healthy- appearing, elderly male. He is in no acute distress at this time. Head, eyes, ears, nose, and throat: He does not have any teeth. He does not have any white patches on his tongue. There is no drainage from his nose or ears. Thorax: Patient has an increased AP diameter of the chest. On the left side, there is a Port-A-Cath. According to the patient, this has not been use for years and most likely it has clotted off. Lungs: There were some rhonchi heard on the left chest, but not the right side. Cardiovascular: Heart rate is irregular. Abdomen: Soft and not tender. Neurologic: Patient is alert. He can move his extremities. There is no tremor. His sensation is intact to touch. His memory as regarding his medical history is intact. Integument: No rash noted. Thank you for the consult. cc: Lucas Delgado MD
[2018-06-14 16:32] LABS: ALLEN TEST YES; BE 0.5 mmoll (-3.0-3.0); BLOOD TYPE ARTERIAL; HCO3-(ACT) 25.3 mmoll (20.0-26.0); METHB 1.5 % (0.0-1.5); O2(CT) 20.5 mL/dL (15.0-23.0); O2HB 95.7 % (95.0-99.0); PCO2(98.6) 41 mmHg (35-45); PO2(98.6) 90 mmHg (60-100); SAMPLE BLOOD; SAO2 98.8 % (95.0-100.0); THB 15.2 g/dL (11.5-17.4)
[2018-06-14 16:33] LABS: MODALITY CANNULA
[2018-06-14] MEDS: VANCOMYCIN 2 GM in NS 500 ML IV SCH (17:43)
--- NOTE | 2018-06-14 18:50 | PULMONOLOGY CONSULTATION ---
DATE: 06/14/2018 REQUESTING PHYSICIAN: Dr. Armas. REASON FOR CONSULTATION: Metastatic lung cancer with pneumonia. HISTORY OF PRESENT ILLNESS: Mr. Grove is a 76-year-old white male, never smoker, with metastatic bronchoalveolar cell carcinoma diagnosed many years ago. The patient's last treatment was stopped 12/15/2015. The patient is based on high oxygen at home and uses a nebulizer machine once or twice a day. The patient reportedly was at his baseline until 2 to 3 days prior to admission he has increased cough, increased shortness of breath. He did try a home remedy without improvement. He presented to the emergency room with increased cough with increased sputum production. He denies overt fevers or chills. The patient presented to the emergency room and a CT scan was performed which did reveal some progression of his disease bilaterally when compared to 03/20/2016. The patient has been initiated on nebulizers and bronchodilators and reports he is coming closer to his baseline. Sputum cultures were obtained, which revealed sparse normal ceferino. PAST MEDICAL HISTORY: 1. Stage IV bronchoalveolar cell carcinoma without recent treatment. 2. Hypertension. 3. Chronic hypoxemic respiratory failure. 4. Arthritis. 5. Status post right lower and right middle lobectomy. SOCIAL HISTORY: The patient is a never smoker. He has an attentive . FAMILY HISTORY: Positive for heart disease. REVIEW OF SYSTEMS: As noted in the HPI. PHYSICAL EXAMINATION: Reveals a obese white male resting comfortably in no distress. BP 166/77, heart rate 72, respiratory rate 19, oxygen saturation 98% on 4 L per nasal cannula.HEENT: Pupils are equal and reactive. Oropharynx is clear. Neck: Supple. Chest: Reveals diminished breath sounds bilaterally but most prominently in the left base. Cardiac: S1-S2. Abdomen: Soft. Extremities: Reveal trace edema. LABORATORIES: CT scan as per HPI. White blood count 11.8, hemoglobin 4.4, platelet count 239,000. Arterial blood gas from this afternoon, pH 7.40, pCO2 of 41, PO2 of 90. Chemistry sodium 139, potassium 4.0, chloride 103, bicarbonate 26, BUN 27, creatinine 1.0. IMPRESSION: 72-year-old with stage IV bronchoalveolar cell carcinoma, chronic hypoxemic respiratory failure, who presented with increased cough, increased sputum production, increased dyspnea. The patient may have had a component of bronchospasm. I suspect that his pulmonary status is marginal at baseline and with his acute bronchitis/infection he had respiratory decompensation. He reports he is having some clinical improvement. He currently is stating that he will not likely undergo additional treatment. RECOMMENDATIONS: 1. Continue current antibiotic and nebulizer regimen. 2. Continue morphine p.r.n. pain. 3. Agree with Mucomyst but this can cause edema and bronchospasms so it should be used cautiously. 4. Await results of immunoglobulin levels. 5. Consider hospice at the time of discharge. cc: Tres Lala MD
[2018-06-14] MEDS: NORCO-7.5 PO PRN (20:41)
[2018-06-15] MEDS ORDERED: LOPRESSOR PO SCH (02:22)
[2018-06-15] MEDS: DUONEB (A & A) INH SCH ×6 (03:00→23:09)
[2018-06-15] MEDS: MAXIPIME 2 GM in NS 100 ML IV SCH ×2 (03:48→14:21)
[2018-06-15] MEDS: LOVENOX SUBQ SCH (05:21)
[2018-06-15] MEDS: MUCOMYST 20% INH SCH ×2 (07:37→19:20)
[2018-06-15 08:53] LABS: BASO# 0.01 X1000 (0.0-0.2); BASO% 0.1 % (0.0-0.8); HEMATOCRIT 45.2 % (42.0-52.0); HEMOGLOBIN 14.7 g/dL (14.0-18.0); IMM GRAN# 0.15 X1000 (0.0-0.04); IMM GRAN% 1.2 % (0.0-0.5); LYMPH# 0.54 X1000 (1.2-3.4); LYMPH% 4.2 % (20.5-51.1); MCH 26.8 PG (27-31); MCHC 32.5 g/dL (33-37); MCV 82.5 FL (81-99); MONO# 0.55 X1000 (0.11-0.59); MONO% 4.3 % (1.7-9.3); MPV 9.2 FL (7.4-10.4); NEUT% 90.2 % (42.2-75.2); PLT 228 X1000 (130-400); RBC 5.48 XMIL (4.7-6.1); RDW 15.2 % (11.5-14.5); WBC 12.75 X1000 (4.8-10.8)
[2018-06-15 09:20] LABS: AGAP 9; BUN 23 mg/dL (8-22); CALCIUM 8.3 mg/dL (8.8-10.2); CHLORIDE 103 mmol/L (98-107); COSMO 283; CREATININE 0.8 mg/dL (0.7-1.2); ESTIMATED GFR > 60; GLUCOSE 170 mg/dL (70-104); POTASSIUM 4.9 mmol/L (3.5-5.1); SODIUM 138 mmol/L (136-145); TCO2 26 mmol/L (25-35)
[2018-06-15] MEDS: TESSALON PO SCH ×3 (09:51→22:14)
[2018-06-15] MEDS: LIDODERM TOP SCH (09:51)
[2018-06-15] MEDS: SOLU-MEDROL IV SCH ×2 (09:51→22:15)
[2018-06-15] MEDS: MORPHINE IV PRN (09:51)
[2018-06-15 09:55] LABS: BANDS 4 % (0-1); LYMPHS 10 % (21-51); MONO 2 % (1-9); SEGS 82 % (42-75)
[2018-06-15] MEDS: MIRALAX PO SCH (09:58)
[2018-06-15] MEDS: DURAGESIC 12 MICROGM/HR PATCH TD SCH (14:21)
[2018-06-15] MEDS ORDERED: LOPRESSOR PO ONE (15:59)
[2018-06-15] MEDS: ASPIRIN PO SCH (16:41)
[2018-06-15] MEDS: VANCOMYCIN 2 GM in NS 500 ML IV SCH (16:41)
--- NOTE | 2018-06-15 18:21 | INFECTIOUS DISEASE PROGRESS NO ---
DATE: 06/15/2018 PRESENT ILLNESS: Mr. Grove has metastatic lung cancer with an apparent pneumonia. He is feeling much better after receiving IV antibiotics. MEDICATIONS: Today is day 3 of vancomycin IV per Pharmacy dosing and cefepime 2 g IV every 12 hours. Of note, he is also receiving IV Solu-Medrol. PHYSICAL EXAMINATION: Vital Signs: Temperature is 98 degrees, pulse rate 83, respiratory rate 18, blood pressure 179/85, O2 saturation is 98% on 4 L nasal cannula. General: This is a chronically ill-appearing elderly gentleman. He is sitting up on the side of the bed, currently in no acute distress. HEENT: Atraumatic, normocephalic. Oral mucous membranes are pink and moist. Conjunctivae are pink. Neck: Supple. Trachea is midline. Cardiovascular: Heart rate and rhythm are regular. Normal sinus rhythm on the monitor. Pedal and radial pulses are palpable bilaterally. There is a pretibial edema noted bilaterally, left slightly greater than right. Respiratory: Breath sounds are diminished bilaterally with very mild rales noted in the upper lobes. He is having a frequent cough which has become more dry recently. Abdomen: Soft, round, and nontender. Bowel sounds are active. Neurologic: He is awake, alert, and oriented. Able to move his extremities independently. DIAGNOSTIC STUDIES: His white count is 12.75, hemoglobin 14.7, platelet count 228,000. Creatinine is 0.8, estimated GFR is greater than 60. IgG is 1080, IgA 497. No imaging reports today. ASSESSMENT AND PLAN: Mr. Grove has a metastatic cancer with a possible pneumonia. He is feeling much better today and states his cough is more dry. His previous sputum culture has not grown any bacteria so at this time we will continue IV vancomycin and cefepime as ordered for broad-spectrum coverage. There is a mild leukocytosis which could possibly be steroid induced. These plans have been discussed with and recommended by Dr. Delgado. COMORBIDITIES: Mr. Grove is elderly with metastatic lung cancer, respiratory failure, and history of lung cancer with right middle and right lower lobectomies. Dictated by MATEUS Payan for Lucas Delgado MD This chart was documented by, MATEUS Payan and accurately reflects the services performed, treatment plan and medical decisions as attested by the providers signature Lucas Delgado MD. cc: Lucas Delgado MD MTDD
[2018-06-15] MEDS: MUCINEX PO SCH (22:14)
--- NOTE | 2018-06-15 23:03 | PULMONOLOGY PROGRESS NOTE ---
DATE: 06/15/2018 SUBJECTIVE: The patient reports his breathing is improving. His sputum production has diminished. He reports he is approaching his baseline. OBJECTIVE: Vital signs: The patient has been afebrile for the last 24 hours. Blood pressure 154/70, heart rate 96, respiratory rate 71, oxygen saturation 98% on 4 L per nasal cannula. HEENT: Pupils are equal and reactive. Oral cavity is clear. Neck: Supple. Chest: Reveals diminished breath sounds bilaterally with occasional rhonchi. Cardiac exam: S1, S2. Abdomen: Soft and obese. Extremities: Without edema. LABORATORIES: Prior sputum cultures reveal sparse growth of normal ceferino. IMPRESSION: A 72-year-old with: 1. Stage IV bronchoalveolar cell carcinoma. 2. Chronic hypoxemic respiratory failure. 3. Acute bronchitis/pneumonia. 4. Bronchospasm. 5. Obesity. PLAN: 1. Continue current antibiotic and nebulizer regimen. 2. Consider outpatient course of antibiotics and steroids. 3. The patient is approaching baseline. Consider discharge in the near future. 4. Consider hospice at the time of discharge or as an outpatient evaluation. cc: Tres Lala MD
[2018-06-16] MEDS ORDERED: LOPRESSOR PO SCH (00:30)
[2018-06-16] MEDS: MAXIPIME 2 GM in NS 100 ML IV SCH ×2 (02:20→15:10)
[2018-06-16] MEDS: DUONEB (A & A) INH SCH ×6 (03:00→23:18)
[2018-06-16] MEDS: NORCO-7.5 PO PRN ×2 (05:43→15:16)
--- NOTE | 2018-06-16 06:04 | PROGRESS NOTE ---
DATE: 06/15/2018 SUBJECTIVE: He is a patient of Dr. Margo Rocha. A 72-year-old with past medical history of lung cancer status post right middle and right lower lobectomies with chemotherapy. He also had a history of arthritis and hypertension. He states that he received chemotherapy treatments for a period of 5 years, and he was through on 11/21/2011 and decided not to receive any further chemotherapy. This was the time of his last treatment I think 11/21/2011. Seen by Dr. Thomas in 2014, and since that time, he has continued not to pursue any further treatment for lung cancer. Approximately week and a half ago, the patient did have productive cough initially with white- colored sputum, though now he states it has been greenish-brown. He was having some body aches. The ER performed a CT angiogram, which showed patient had a left pleural effusion, increase in size of precarinal node, and also multiple nodular opacities present in both inferior lobes of the right and left lungs, as well as the right middle and left upper lobes. Dense area of consolidation in prehilar region, extensive consolidation in left lower lobe and believe this was from metastatic disease. He states he is breathing better. He is very weak, and he is requesting some physical therapy. He still has some thick mucus that he has trouble coughing up, and he wanted to go back on his same blood pressure medicine he was on at home. PHYSICAL EXAMINATION: Vital signs: Today temperature 97.6 degrees, pulse 98, respirations 18, blood pressure 190/90. HEENT: Pupils were equal. Neck: No distended neck veins. Lungs: Clear in all lung del castillo, anterior and lateral. Cardiovascular: Regular rhythm and rate without murmur or S3. Abdomen: Soft. Skin: Warm and dry. LABORATORY DATA: Reviewed from yesterday. White count 12,750, hematocrit 45, platelet count 228,000. Sodium 138, potassium 4.9, chloride 103, BUN was 23, creatinine 0.8. ASSESSMENT AND PLAN: 1. Stage IV bronchioloalveolar cell carcinoma with chronic hypoxemic respiratory failure, increased sputum production, increased dyspnea, and he has a component of bronchospasm. Treating him for acute bronchitis infection with respiratory decompensation, and he is making some improvement. Continue antibiotic and nebulizer. Use morphine as needed for pain. He is on Mucomyst to help with the edema and bronchospasms. 2. We are awaiting immunoglobulin levels to see if he is immunoglobulin deficient. 3. Hypertension. He requests we put him back on his same medications. 4. Treating him for pneumonia and it could be postobstructive pneumonia. He is on cefepime 2 g IV q.12 h. and vancomycin, and does seem to be making improvement respiratory-staton. 5. General weakness. We will ask Physical Therapy to see if they will help. 6. Dysphagia to solids. That seems to be better. He just says he does not like the food. 7. Chronic pain syndrome. Likely underlying malignancy. Apparently his lung cancer is bronchoalveolar type, and there is some advancing disease with the CTA of the lungs showing worsening metastatic disease. Continue present course. cc: Sukhwinder Thornton MD
[2018-06-16] MEDS: MUCOMYST 20% INH SCH ×2 (07:51→20:10)
[2018-06-16] MEDS: SOLU-MEDROL IV SCH ×2 (09:28→22:20)
[2018-06-16] MEDS: MUCINEX PO SCH ×2 (09:28→22:20)
[2018-06-16] MEDS: ASPIRIN PO SCH (09:28)
[2018-06-16] MEDS: LIDODERM TOP SCH (09:28)
[2018-06-16] MEDS: LOPRESSOR PO SCH (09:28)
[2018-06-16] MEDS: TESSALON PO SCH ×3 (09:28→22:20)
[2018-06-16] MEDS: MIRALAX PO SCH (09:28)
--- NOTE | 2018-06-16 17:49 | PROGRESS NOTE ---
DATE: 06/16/2018 SUBJECTIVE: Mr. Grove is feeling better and doing better. His breathing seems to be better. He thinks he may be able to go home tomorrow. OBJECTIVE: He remains afebrile. Vital Signs: Temperature 97.5 degrees, pulse 77, respirations 18, and blood pressure 182/78. HEENT: Pupils are equal and round. Lungs: Clear in all lung del castillo. Cardiovascular: Regular rhythm and rate without murmur or S3. Urine output is 1300 mL. ASSESSMENT AND PLAN: 1. Stage IV bronchioloalveolar cell carcinoma very slow growing. He has had it for almost 20 years and very little advancement. Dr. Lala and Dr. Thomas following. 2. Chronic hypoxemic respiratory failure. 3. Acute bronchitis and pneumonia which is improving. 4. Bronchospasm which is improved. 5. Obesity. I talked to Dr. Delgado, and he should be ready to go on p.o. antibiotics. Hopefully, he can go home in the morning. cc: Sukhwinder Thornton MD
[2018-06-16] MEDS: VANCOMYCIN 2 GM in NS 500 ML IV SCH (19:05)
--- NOTE | 2018-06-17 01:29 | PULMONOLOGY PROGRESS NOTE ---
DATE: 06/16/2018 SUBJECTIVE: The patient is awake, alert, and conversant, and sitting in his bed. He reports he is returning to his baseline. Minimal sputum production. Dyspnea has significantly decreased. OBJECTIVE: Vital Signs: Blood pressure 151/76, heart rate 77, respiratory rate 19, oxygen saturation 99%. He has been afebrile for the last 24 hours. Chest: Reveals decreased breath sounds, left greater than right base. Cardiac: S1-S2. Abdomen: Obese and soft. Extremities: Reveal trace edema. LABORATORIES: No new chemistries, CBC, or culture data today. IMPRESSION: A 72-year-old with 1. Acute bronchitis/pneumonia. 2. Chronic hypoxemic respiratory failure. 3. Stage IV bronchoalveolar cell carcinoma. 4. Bronchospasm. 5. Obesity. 6. Overall, patient continues to slowly improve. RECOMMENDATIONS: 1. Continue current antibiotic and nebulizer regimen. 2. Consider outpatient course of antibiotic and steroids. 3. Consider hospice at the time of discharge, or as an outpatient referral. 4. Anticipate discharge in the near future. cc: Tres Lala MD
[2018-06-17] MEDS: MAXIPIME 2 GM in NS 100 ML IV SCH ×2 (03:02→18:30)
[2018-06-17] MEDS: NORCO-7.5 PO PRN ×2 (03:09→22:25)
[2018-06-17] MEDS: DUONEB (A & A) INH SCH ×6 (03:21→23:30)
[2018-06-17 08:24] LABS: AGAP 8; BUN 25 mg/dL (8-22); CALCIUM 8.8 mg/dL (8.8-10.2); CHLORIDE 98 mmol/L (98-107); COSMO 276; CREATININE 0.8 mg/dL (0.7-1.2); ESTIMATED GFR > 60; GLUCOSE 150 mg/dL (70-104); POTASSIUM 4.8 mmol/L (3.5-5.1); SODIUM 134 mmol/L (136-145); TCO2 28 mmol/L (25-35)
[2018-06-17 08:25] LABS: BASO# 0.03 X1000 (0.0-0.2); BASO% 0.2 % (0.0-0.8); HEMATOCRIT 45.6 % (42.0-52.0); IMM GRAN# 0.58 X1000 (0.0-0.04); IMM GRAN% 3.5 % (0.0-0.5); LYMPH# 0.62 X1000 (1.2-3.4); LYMPH% 3.7 % (20.5-51.1); MCH 27.1 PG (27-31); MCHC 32.9 g/dL (33-37); MCV 82.3 FL (81-99); MONO# 0.77 X1000 (0.11-0.59); MONO% 4.6 % (1.7-9.3); MPV 8.9 FL (7.4-10.4); NEUT# 14.67 X1000 (1.4-6.5); PLT 239 X1000 (130-400); RBC 5.54 XMIL (4.7-6.1); RDW 15.3 % (11.5-14.5); WBC 16.67 X1000 (4.8-10.8)
[2018-06-17] MEDS: LOPRESSOR PO SCH (08:46)
[2018-06-17] MEDS: TESSALON PO SCH ×3 (08:46→22:26)
[2018-06-17] MEDS: MIRALAX PO SCH (08:46)
[2018-06-17] MEDS: ASPIRIN PO SCH (08:46)
[2018-06-17] MEDS: MUCINEX PO SCH ×2 (08:46→22:26)
[2018-06-17] MEDS: LIDODERM TOP SCH (08:47)
[2018-06-17] MEDS: SOLU-MEDROL IV SCH ×2 (08:47→22:26)
[2018-06-17] MEDS: MUCOMYST 20% INH SCH ×2 (08:53→19:30)
[2018-06-17] MEDS: VANCOMYCIN 2 GM in NS 500 ML IV SCH (12:40)
--- NOTE | 2018-06-17 17:05 | PROGRESS NOTE ---
DATE: 06/17/2018 SUBJECTIVE: Mr. Grove says he just did not feel real good today. He is very weak. He just walked to the bathroom and he felt very poor. He does not think he can go home today, mainly because of his weakness. Seems like his breathing is doing okay, although he was short of breath with just a couple steps. OBJECTIVE: Vital signs: Temp 97.7 degrees, pulse 70, respirations 22, blood pressure 168/76. HEENT: Pupils are equal and round. Lungs: Clear in all lung del castillo. Cardiovascular: Regular rhythm and rate without murmur or S3. Abdomen: Soft, nondistended. Extremities: No pedal edema. Urine output is 2700 mL. ASSESSMENT: 1. Acute bronchitis pneumonia. 2. Chronic hypoxemic respiratory failure. 3. Stage IV bronchioloalveolar cell carcinoma. 4. Bronchospasm. 5. Obesity. 6. Patient has general weakness, deconditioning. He is slowly improving. PLAN: So continue antibiotic, nebulizer treatment, and steroids. He wants to try and go home but did not feel he is ready, so will see. Continue physical therapy and maybe he can go home tomorrow. cc: Sukhwinder Thornton MD
--- NOTE | 2018-06-17 18:49 | INFECTIOUS DISEASE PROGRESS NO ---
DATE: 06/17/2018 PRESENT ILLNESS: The patient has pneumonia. MEDICATIONS: This is day 5 of vancomycin and day 5 of cefepime as well. The patient also is receiving steroids. PHYSICAL EXAMINATION: Vital Signs: Temperature is 97.7 degrees, pulse 70, respirations 22, blood pressure 168/76. General: This is a chronically ill-appearing, elderly male. He is in no acute distress, however. Head, eyes, ears, nose, and throat: He can hear my spoken words and see near objects. He does not have any white patches on his tongue. Neck: No meningismus. Lungs: Clear to auscultation. Cardiovascular: Heart rate is regular. Abdomen: Soft and nontender. Neurologic: Patient is alert. He can move his extremities. There is no tremor. LAB AND X-RAY: CBC shows a white count of 16,670, hemoglobin 15, and platelet count 239,000. Creatinine is 0.8. GFR is greater than 60. ASSESSMENT AND PLAN: The patient has pneumonia and unfortunately he has metastatic lung cancer as well. He complains of being very weak, but otherwise he thinks he is getting better. My plan is to continue the current antibiotics. COMORBIDITIES: The patient has metastatic lung cancer, he is elderly, and he also has respiratory failure. cc: Lucas Delgado MD
[2018-06-18] MEDS: DUONEB (A & A) INH SCH ×6 (03:00→23:05)
[2018-06-18] MEDS: MAXIPIME 2 GM in NS 100 ML IV SCH ×2 (03:51→16:14)
[2018-06-18] MEDS: VANCOMYCIN 2 GM in NS 500 ML IV SCH (06:56)
[2018-06-18] MEDS: MUCOMYST 20% INH SCH ×2 (08:04→19:05)
[2018-06-18] MEDS: LIDODERM TOP SCH (08:35)
[2018-06-18] MEDS: ASPIRIN PO SCH (08:37)
[2018-06-18] MEDS: MUCINEX PO SCH ×2 (08:37→19:49)
[2018-06-18] MEDS: LOPRESSOR PO SCH (08:37)
[2018-06-18] MEDS: SOLU-MEDROL IV SCH ×2 (08:37→19:49)
[2018-06-18] MEDS: MIRALAX PO SCH (08:38)
[2018-06-18] MEDS: TESSALON PO SCH ×3 (08:44→19:49)
[2018-06-18] MEDS: DURAGESIC 12 MICROGM/HR PATCH TD SCH (15:08)
--- NOTE | 2018-06-18 16:23 | PROGRESS NOTE ---
DATE: 06/18/2018 SUBJECTIVE: Mr. Grove says he is better than yesterday but still pretty puny and weak and does not feel like he can go home today. OBJECTIVE: Vital Signs: Temperature 98.1 degrees, pulse 68, respirations 19, blood pressure 170/78. HEENT: His pupils are equal. Neck: No distended neck veins. CVP less than 6 cm. Lungs: Clear in all lung del castillo. Cardiovascular: Regular rhythm and rate without murmur, S3. Abdomen: Soft. Skin: Warm and dry. Urine output 2400 mL. ASSESSMENT AND PLAN: 1. Acute bronchitis and bronchiectatic pneumonia, doing better. Continue present antibiotics. 2. Chronic hypoxemic respiratory failure. 3. Stage IV bronchioloalveolar cell lung carcinoma which has been fairly stable but very prone to get respiratory infections. 4. Bronchospasm. 5. Obesity. 6. General weakness, deconditioning. Continue physical therapy. We will continue his orders. Continue his antibiotics. Getting cefepime 2 g q.12 h., methylprednisone 40 mg IV q.12 h., and vancomycin 2 g IV q.18 h. cc: Sukhwinder Thornton MD
--- NOTE | 2018-06-18 18:45 | INFECTIOUS DISEASE PROGRESS NO ---
DATE: 06/18/2018 PRESENT ILLNESS: Mr. Grove has metastatic lung cancer and is being treated for pneumonia. MEDICATIONS: Today is day 6 of IV vancomycin per pharmacy dosing. He is also receiving cefepime 2 g IV every 12 hours. There is also IV Solu-Medrol 40 mg every 12 hours. PHYSICAL EXAMINATION: Vital Signs: Temperature is 98, pulse rate 68, respiratory rate 19, blood pressure 164/75, O2 saturations 100% on 4 L nasal cannula. General: This is a chronically ill- appearing, elderly gentleman. He is sitting up in the side of the bed in no acute distress. HEENT: Atraumatic, normocephalic. Oral mucous membranes are pink and moist. Conjunctivae are pink. Neck: Supple. Trachea is midline. Cardiovascular: Heart rate and rhythm are regular. Normal sinus rhythm on the monitor. Radial and pedal pulses are palpable bilaterally. He has a pretibial edema noted. Respiratory: Lung sounds are diminished with coarse rhonchi bilaterally. Abdomen: Soft, round and nontender. Bowel sounds are active. Neurologic: He is awake, alert, and oriented. He is able to move all his extremities independently. No tremor. LABORATORY AND X-RAY: None available today. ASSESSMENT AND PLAN: Mr. Grove is being treated for pneumonia. At this point, he is wanting to stay in the hospital a little longer. He is still feeling very weak and having some shortness of breath. For now, we will continue him on the vancomycin and cefepime as ordered. These plans have been discussed with and recommended by Dr. Delgado. COMORBIDITIES: Include he is elderly, with metastatic lung cancer and right middle and right lower lobectomy. Dictated by MATEUS Payan for Lucas Delgado MD This chart was documented by, MATEUS Payan and accurately reflects the services performed, treatment plan and medical decisions as attested by the providers signature Lucas Delgado MD. cc: MD GENEVA Doherty
[2018-06-18] MEDS: NORCO-7.5 PO PRN (19:49)
[2018-06-19] MEDS: SOLU-MEDROL IV SCH ×3 (01:54→21:46)
[2018-06-19] MEDS: MUCINEX PO SCH ×3 (01:54→21:46)
[2018-06-19] MEDS: TESSALON PO SCH ×4 (01:54→21:46)
[2018-06-19] MEDS: VANCOMYCIN 2 GM in NS 500 ML IV SCH ×2 (02:58→21:46)
[2018-06-19] MEDS: DUONEB (A & A) INH SCH ×6 (03:05→23:04)
[2018-06-19] MEDS: MAXIPIME 2 GM in NS 100 ML IV SCH ×2 (05:27→18:37)
[2018-06-19] MEDS: MUCOMYST 20% INH SCH ×2 (08:21→19:05)
[2018-06-19] MEDS: ASPIRIN PO SCH (10:23)
[2018-06-19] MEDS: LOPRESSOR PO SCH (10:23)
[2018-06-19] MEDS: LIDODERM TOP SCH (10:23)
[2018-06-19] MEDS: MIRALAX PO SCH (10:24)
--- NOTE | 2018-06-19 12:17 | PROGRESS NOTE ---
DATE: 06/19/2018 SUBJECTIVE: He says he feels better today. He is thinking about maybe wanting to try and go home this afternoon. His does not feel like he is ready so I encouraged him to continue to work on physical therapy, and work on his breathing. OBJECTIVE: Temperature 98.4 degrees, pulse 99, respirations 20, and blood pressure 173/76. HEENT: Pupils are equal and round. Lungs: Clear in all lung del castillo. Cardiovascular: Regular rhythm and rate without murmur or S3. Abdomen: Soft. Skin: Warm and dry. Urine output is 2900 mL. ASSESSMENT AND PLAN: 1. Acute bronchitis and bronchiectatic pneumonia doing better. Continue present antibiotics. He is improving. 2. Chronic hypoxemic respiratory failure. 3. Stage IV bronchioloalveolar cell lung cancer which has been remarkably stable and slow-growing for the last 20 years. 4. Bronchospasm. 5. Obesity. 6. General weakness and deconditioning. Continue physical therapy. Getting cefepime 2 grams IV q.12 hours, methylprednisone 40 mg IV q.12 and vancomycin 2 g IV q.18. Continue physical therapy. Hopefully, we can go home on Thursday. I think he would benefit from another 48 hours of antibiotics and physical therapy. cc: Sukhwinder Thornton MD
[2018-06-19] MEDS: NORCO-7.5 PO PRN (15:37)
[2018-06-19] MEDS: MORPHINE IV PRN (23:15)
[2018-06-20] MEDS: NORCO-7.5 PO PRN ×3 (00:33→15:42)
[2018-06-20] MEDS: DUONEB (A & A) INH SCH ×4 (03:37→15:11)
[2018-06-20] MEDS: MAXIPIME 2 GM in NS 100 ML IV SCH ×2 (06:35→18:29)
[2018-06-20] MEDS: MUCOMYST 20% INH SCH (07:27)
[2018-06-20 08:21] LABS: BASO# 0.03 X1000 (0.0-0.2); BASO% 0.2 % (0.0-0.8); EOS# 0.04 X1000 (0.0-0.7); EOS% 0.3 % (0.0-10.0); HEMATOCRIT 46.1 % (42.0-52.0); IMM GRAN# 0.71 X1000 (0.0-0.04); IMM GRAN% 5.6 % (0.0-0.5); LYMPH% 4.8 % (20.5-51.1); MCH 26.8 PG (27-31); MCHC 32.5 g/dL (33-37); MCV 82.5 FL (81-99); MONO# 0.75 X1000 (0.11-0.59); MONO% 5.9 % (1.7-9.3); MPV 9.2 FL (7.4-10.4); NEUT# 10.49 X1000 (1.4-6.5); NEUT% 83.2 % (42.2-75.2); PLT 223 X1000 (130-400); RBC 5.59 XMIL (4.7-6.1); RDW 15.8 % (11.5-14.5); WBC 12.62 X1000 (4.8-10.8)
[2018-06-20 08:34] LABS: AGAP 8; BUN 27 mg/dL (8-22); CALCIUM 8.2 mg/dL (8.8-10.2); CHLORIDE 100 mmol/L (98-107); COSMO 275; CREATININE 0.9 mg/dL (0.7-1.2); ESTIMATED GFR > 60; GLUCOSE 153 mg/dL (70-104); POTASSIUM 4.3 mmol/L (3.5-5.1); SODIUM 133 mmol/L (136-145); TCO2 25 mmol/L (25-35)
[2018-06-20 08:36] LABS: BANDS 2 % (0-1); LYMPHS 2 % (21-51); MONO 2 % (1-9); SEGS 92 % (42-75)
--- NOTE | 2018-06-20 08:59 | Diag Imaging Result Doc PS360 ---
EXAM: CHEST-1 VIEW - 06/20/2018 HISTORY: SOB TECHNIQUE: Portable chest COMPARISON: 06/14/2018 FINDINGS: There is been mild decrease in the dense left perihilar opacity compared to prior. The right lung remains essentially clear. There are persistent small bilateral pleural effusions. There is no pneumothorax identified. Heart size appears within normal limits. Central venous catheter remains in place. IMPRESSION: Mild decrease in left perihilar opacity. Electronically signed by Morgan Meyers 06/20/2018 8:57 AM
[2018-06-20] MEDS: LOPRESSOR PO SCH (09:43)
[2018-06-20] MEDS: ASPIRIN PO SCH (09:43)
[2018-06-20] MEDS: LIDODERM TOP SCH (09:43)
[2018-06-20] MEDS: TESSALON PO SCH ×2 (09:43→15:41)
[2018-06-20] MEDS: MIRALAX PO SCH (09:44)
[2018-06-20] MEDS: MUCINEX PO SCH (09:44)
[2018-06-20] MEDS: SOLU-MEDROL IV SCH (09:44)
--- NOTE | 2018-06-20 13:41 | PROGRESS NOTE ---
DATE: 06/20/2018 SUBJECTIVE: Mr. Grove is feeling much better today. He thinks he can probably go home tomorrow. He feels stronger, breathing more comfortable. OBJECTIVE: Vital Signs: Temperature 98 degrees, pulse 85, respirations 18, blood pressure 159/64. HEENT: Pupils are equal and round. Lungs: Clear in all lung del castillo. Cardiovascular: Regular rhythm and rate without murmur or S3. Abdomen: Soft. Skin: Warm, dry. LABORATORY STUDIES: Urine output is 2200 mL. Chest x-ray from this morning, mild decrease in the left parahilar opacity. ASSESSMENT AND PLAN: Acute bronchitis, bronchiectasis, pneumonia. He is doing better. He has been getting cefepime and methylprednisone and vancomycin and Dr. Delgado feels like he can be changed over to I think p.o. Levaquin but is making steady improvement. We have been working on his strength with physical therapy and I think he would like to go home and try and get some home health and get some physical therapy at home. His underlying bronchoalveolar pneumonia is stable and his bronchospasm is better. cc: Sukhwinder Thornton MD
[2018-06-20] MEDS: VANCOMYCIN 2 GM in NS 500 ML IV SCH (16:40)
[2018-06-20 18:38] VITALS: BP 176/76
--- NOTE | 2018-06-28 09:41 | DISCHARGE SUMMARY ---
ADMISSION DATE: 06/10/2018 DISCHARGE DATE: 06/21/2018 HOSPITAL COURSE: A 72-year-old male seen by Dr. Thomas, followed by Dr. Rocha, his primary care physician who presented with dyspnea. He has a history of lung cancer, status post right middle and right lower lobectomies and chemotherapy. He also had a history of arthritis and hypertension. The patient states that he did not receive chemotherapy treatments for a period of 5 years through 11/20/2016. Patient decided not to receive any further chemotherapy. He was seen by Dr. Thomas in 2014. CT angiogram showed a left pleural effusion. There was an increased size of the pericarinal node, and there were multiple nodular opacities. So was admitted to the hospital, treated for pneumonia and underlying lung cancer. He had broad-spectrum antibiotics and seemed to be improving. Infectious Disease was asked to follow, and the question was whether this was cancer or postobstructive pneumonia. So patient was treated on vancomycin and cefepime 2 g IV q.12. Also we checked immunoglobulin levels. He showed steady improvement. Dr. Thomas evaluated. He has a very slow growing, what appears to be bronchoalveolar pneumonia, metastatic lung adenocarcinoma. The patient showed improvement. He was able to go home, discharged. He will be on Levaquin p.o. and will follow up with Dr. Thomas and Dr. Delgado. So he was discharged 06/21/2018. cc: Sukhwinder Thornton MD
== END 2018-06-20 18:55 | disposition home health service (06) | DRG 191 ==
LOC: ED 16:25 → SUATTDRO 22:20 → 3N 22:20
PROVIDERS: ATTEND Emergency Medicine
CPT/HCPCS: 71010; 71020; 71045; 71046; 71275; 80048; 80053; 80202; 82784; 82805; 83605; 83735; 83880; 84484; 85025; 85610; 85730; 87040; 87070; 87205; 87275; 87276; 87804; 89220; 93005; 93010; 94640; 94760; 94761; 94762; 94799; 96365; 96367; 96375; 97116; 97162; 97530; 99284; 99285; A9270; J0456; J0692; J0696; J1650; J2270; J2405; J2920; J2930; J3370; J7030; J7040; Q9967

== ENCOUNTER 2019-03-19 07:32 | Inpatient (IN) ==
[2019-03-19 08:26] LABS: BASO# 0.02 X1000 (0.0-0.2); BASO% 0.3 % (0.0-0.8); EOS# 0.22 X1000 (0.0-0.7); EOS% 2.9 % (0.0-10.0); HEMATOCRIT 42.1 % (42.0-52.0); HEMOGLOBIN 12.9 g/dL (14.0-18.0); IMM GRAN# 0.02 X1000 (0.0-0.04); IMM GRAN% 0.3 % (0.0-0.5); LYMPH# 1.37 X1000 (1.2-3.4); LYMPH% 17.9 % (20.5-51.1); MCH 25.1 PG (27-31); MCHC 30.6 g/dL (33-37); MCV 81.9 FL (81-99); MONO# 0.79 X1000 (0.11-0.59); MONO% 10.3 % (1.7-9.3); MPV 8.7 FL (7.4-10.4); NEUT# 5.24 X1000 (1.4-6.5); NEUT% 68.3 % (42.2-75.2); PLT 316 X1000 (130-400); RBC 5.14 XMIL (4.7-6.1); RDW 16.3 % (11.5-14.5); WBC 7.66 X1000 (4.8-10.8)
--- NOTE | 2019-03-19 08:36 | Diag Imaging Result Doc PS360 ---
CHEST-2 VIEWS - 03/19/2019 INDICATION: coughing COMPARISON: 06/20/2018 FINDINGS: Stable left chest port in good position. There has been slight progression in the size of the large infiltrate or mass in the left lower lobe. There is now a trace left pleural effusion. Stable trace right pleural effusion. Heart size is top normal. IMPRESSION: Progression from prior. Electronically signed by Bolivar Rodriguez 03/19/2019 8:34 AM
[2019-03-19 08:57] LABS: AGAP 10; ALBUMIN 3.3 g/dL (3.5-5.0); ALKALINE PHOSPHATASE 102 U/L (32-122); BUN 11 mg/dL (8-22); CHLORIDE 100 mmol/L (98-107); COSMO 268; CREATININE 0.7 mg/dL (0.7-1.2); ESTIMATED GFR > 60; GLUCOSE 111 mg/dL (70-104); GOT 19 U/L (10-34); GPT 11 U/L (10-44); POTASSIUM 4.3 mmol/L (3.5-5.1); SODIUM 134 mmol/L (136-145); TCO2 24 mmol/L (25-35); TOTAL PROTEIN 7.6 g/dL (6.3-8.3)
--- NOTE | 2019-03-19 08:57 | PROVIDER DOCUMENTATION ---
HPI-Respiratory General - General Chief Complaint: Cough Stated Complaint: SOB Time Seen by Provider: 03/19/19 08:51 Source: patient, family Allergies/Adverse Reactions: Patient Allergies Allergy/AdvReac Type Severity Reaction Status Date / Time No Known Allergies Allergy Verified 06/13/18 06:00 Home Medications: Home Medication List Medication Instructions Recorded Confirmed Last Taken Type Metoprolol [Lopressor] 25 mg PO DAILY 08/21/14 06/11/18 06/10/18 History Inhaler,Assist Dev,Small Mask 1 each MC Q4H PRN #1 spacer 03/08/16 03/20/16 Unknown Rx [Aerochamber Plus Flow-Vu] Hydrocodone/Acetaminophen 1 tab PO Q6HR PRN 06/10/18 06/10/18 06/10/18 History [Hydrocodone-Acetamin 7.5-325] CefUROXIME [Ceftin] 500 mg PO Q12HR #40 tab 06/16/18 Unknown Rx Doxycycline 100 mg PO Q12H #20 tab 06/16/18 Unknown Rx - History of Present Illness-Resp Nature of Presenting Problem: hx of ca off left lung has hx of 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 d enies: fever/chills, flu-like symptoms, nasal congestion Similar Symptoms Previously?: Yes Recently seen or treated by another doctor?: Yes Review of Systems - Adult - REVIEW OF SYSTEMS - ADULT Constitutional: denies: chills, fever Eyes: reports: no symptoms reported Ears, Nose, Mouth & Throat: reports: no symptoms reported Cardiovascular: denies: chest pain, irregular heart rate, palpitations Respiratory: reports: chronic cough, dyspnea on exertion, shortness of breath Gastrointestinal: reports: no symptoms reported Genitourinary: reports: no symptoms reported Musculoskeletal: reports: no symptoms reported Integumentary: reports: no symptoms reported Neurological: reports: no symptoms reported Psychiatric: reports: no symptoms reported Endocrine: reports: no symptoms reported Hematologic/Lymphatic: reports: no symptoms reported Past History - Adult - PAST MEDICAL HISTORY-ADULT Review of Records: reports: Nursing Assessment Review, Medications Reviewed, Social history reviewed & non-contributory. Major Childhood Illnesses: reports: denies history Cardiovascular: reports: HTN. denies: CHF, [place] Respiratory: reports: cancer (lung--still had but is no longer wanting treatment), pneumonia Gastrointestinal: reports: denies history Obstetrical/Gynecological: reports: denies history Genitourinary: reports: denies history Musculoskeletal: reports: arthritis (RA), chronic pain Neurological: reports: denies history Endocrine/Immune: reports: denies history Other Conditions: reports: denies history - PRIOR SURGERIES/PROCEDURES Surgical/Procedure History: reports: other (lobectomy RLL, RML; port placement) - IMMUNIZATION STATUS Childhood Immunizations: See Nurse Assessment Flu Vaccine: See Nurse Assessment - FAMILY HISTORY Family History: reviewed, not pertinent Physical Exam-General - PHYSICAL EXAM-ADULT Initial Vital Signs Reviewed: Yes - CONSTITUTIONAL General Appearance: mild distress - EYES Eyes: PERRL/EOMI - HEAD, EARS, NOSE, MOUTH & THROAT HENMT: moist mucous membranes, TMs normal, pharynx normal - NECK Neck: supple - RESPIRATORY Respiratory: decreased breath sounds. negative: no accessory muscle use - CARDIOVASCULAR Cardiovascular: normal peripheral pulses, regular rate, rhythm - GASTROINTESTINAL (ABDOMEN) Abdominal Exam: soft - LYMPHATIC Lymphatic: no adenopathy - MUSCULOSKELETAL Back Exam: normal inspection Extremity: normal range of motion - SKIN Integumentary: normal color, normal turgor - NEUROLOGIC Neurologic: grossly normal - PSYCHIATRIC Psych/Mental Status: oriented x 3 Progress - PLAN OF CARE/RESULTS Progress/Plan/Lab Results: Vital Signs - 8 hr 03/19/19 07:35 Temperature 97.5 F L Pulse Rate 70 Respiratory Rate 20 Blood Pressure 147/070 O2 Sat by Pulse Oximetry 95 Laboratory Results - last 24 hr 03/19/19 03/19/19 08:00 08:00 WBC 7.66 RBC 5.14 Hgb 12.9 L Hct 42.1 MCV 81.9 MCH 25.1 L MCHC 30.6 L RDW Std Deviation 16.3 H Plt Count 316 MPV 8.7 Immature Gran % (Auto) 0.3 Neut % (Auto) 68.3 Lymph % (Auto) 17.9 L [place] % (Auto) 10.3 H Eos % (Auto) 2.9 Baso % (Auto) 0.3 Immature Gran # (Auto) 0.02 Neut # (Auto) 5.24 Lymph # (Auto) 1.37 [place] # (Auto) 0.79 H Eos # (Auto) 0.22 Baso # (Auto) 0.02 Sodium 134 L Potassium 4.3 Chloride 100 Carbon Dioxide 24 L Anion Gap 10 BUN 11 Creatinine 0.7 Estimated GFR/1.73 m2 > 60 BUN/Creatinine Ratio 16 Glucose 111 H Calculated Osmolality 268 Calcium 9.0 Total Bilirubin 0.50 AST 19 ALT 11 Alkaline Phosphatase 102 Total Protein 7.6 Albumin 3.3 L Globulin 4.0 Albumin/Globulin Ratio 1.0 Orders Category Date Time Status CHEST-2 VIEWS [RAD] Stat Exams 03/19/19 07:47 Completed CBC WITH DIFF [HEME] Stat Lab 03/19/19 08:00 Completed CMP [COMPREHENSIVE METABOLIC PANEL] [CHEM] Stat Lab 03/19/19 08:00 Received Result Diagrams: 03/19/19 08:00 03/19/19 08:00 Departure - Departure Date of Disposition Decision: 03/19/19 Time of Disposition Decision: 09:02 DIAGNOSIS: Shortness of breath, Lung cancer Disposition: ADMITTED INPATIENT 09 Certified Medical Emergency: Emergent Condition: Stable - Critical Care Note This patient required my direct & personal management of CC.: No Attestation - Physician/ ADALGISA Attestation Patient care was provided by Advanced Practice Provider:: No The physician spent face to face time with patient:: Yes Advanced Practice Provider documentation review:: Supervising physician onsite and consulted in the evaluation and care of this patient. The physician did have a face to face encounter with the patient.
[2019-03-19] MEDS ORDERED: VANCOMYCIN IV PER PHARMACY MISC SCH (10:00)
[2019-03-19] MEDS ORDERED: VANCOMYCIN 2,000 MG in NS 500 ML IV ONE (11:00)
[2019-03-19] MEDS ORDERED: ROBITUSSIN-AC PO PRN (11:24)
[2019-03-19] MEDS: DUONEB (A & A) INH SCH ×4 (11:48→23:37)
[2019-03-19] MEDS ORDERED: FLU VACCINE IM ONE (13:56)
[2019-03-19] MEDS ORDERED: PNEUMOVAX 23 IM ONE (14:00)
[2019-03-19] MEDS: SOLU-MEDROL IV SCH ×2 (14:35→22:25)
[2019-03-19] MEDS: NS 1,000 ML IV SCH (16:46)
[2019-03-19] MEDS: MAXIPIME 2 GM in NS 100 ML IV SCH (16:47)
--- NOTE | 2019-03-19 17:33 | HISTORY AND PHYSICAL ---
CHIEF COMPLAINT: Shortness of breath and cough. HISTORY OF PRESENT ILLNESS: This is a 73-year-old gentleman with a history of stage IV metastatic bronchioloalveolar carcinoma, hypertension and arthritis. He presents to the emergency room complaining of increasing shortness of breath and cough over the past 2 weeks. Over the last 3 days he has developed a productive cough with shortness of breath at rest and 2 to 3-pillow orthopnea. He denied any fevers or chills, any chest pain, palpitations. PAST MEDICAL HISTORY: 1. Stage IV metastatic bronchioloalveolar carcinoma. 2. Hypertension. 3. Arthritis. 4. Chronic hypoxemic respiratory failure. PAST SURGICAL HISTORY: Right lower and right middle lobe lobectomy. SOCIAL HISTORY: He denies any alcohol, tobacco or illicit drug use. He is . He does have an attentive . FAMILY HISTORY: Positive for heart disease with his mother and father. His father had COPD. ALLERGIES: No known drug allergies. HOME MEDICATIONS: A list will be obtained by the nursing staff, and once verified we will review and restart as appropriate. REVIEW OF SYSTEMS: Discussed with the patient, with pertinent positives stated in the HPI. He denied any syncope, dizziness, chest pain, palpitations, fevers or chills, recent weight loss or weight gain, nausea, vomiting, diarrhea, constipation, black or bloody vomitus or stools, any hematuria, dysuria, frequency or urgency. PHYSICAL EXAMINATION: GENERAL: This is a 73-year-old gentleman who is sitting up on the stretcher in the emergency room in no distress. VITAL SIGNS: Blood pressure is 139/61 with a heart rate of 64, respirations are 18, temperature is 97.5 degrees oral with room air saturations 98% on 2 L nasal cannula. HEENT: Head is normocephalic, atraumatic. Mucous membranes are moist. NECK: Supple, with trachea midline. CARDIOVASCULAR: Regular rate and rhythm. S1 and S2 are appreciated. Calves are nontender bilateral with peripheral pulses palpable x4 extremities. PULMONARY: Breath sounds are clear with no increased work of breathing noted. Chest rises and falls symmetric with respiration. Breath sounds are diminished throughout. GASTROINTESTINAL: Abdomen is soft, nontender, nondistended. Bowel sounds in all 4 quadrants. NEUROLOGIC: He is alert and oriented x3. SKIN: Warm and dry. LABORATORY DATA: WBC is 7.6 with hemoglobin 12.9, hematocrit 42.1, platelets of 316,000. Sodium is 134, potassium 4.3, BUN 11, creatinine 0.7 with a glucose of 111. DIAGNOSTIC DATA: Chest x-ray revealed stable left chest port in good position. There has been slight progression in the size of the large infiltrate or mass in the left lower lobe. There is now trace left pleural effusion, stable trace right pleural effusion. ASSESSMENT: 1. Left lower lobe pneumonia, possibly postobstructive. 2. Left lung mass. 3. Chronic hypoxic respiratory failure. 4. Hypertension. 5. 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 PLAN: The patient will be admitted to the medical/surgical floor and placed on telemetry. We will continue with supplemental oxygen. Incentive spirometer every 4 hours. Give DuoNeb q.4 hours with q.2 hours p.r.n. We will obtain a sputum specimen. Check a CBC and CMP in the morning. Continue with IV hydration with steroids to taper, as this could be a postobstructive pneumonia. We will give vancomycin and cefepime. We will use morphine p.r.n. for pain. Further treatments pending hospital course. The patient was examined and plan was discussed with Dr. Wallace. Dictated by MATEUS Calderon for Anderson Wallace MD cc: MATEUS Calderon MD
[2019-03-20] MEDS: NORCO-5 PO PRN ×2 (00:18→12:14)
[2019-03-20] MEDS: MAXIPIME 2 GM in NS 100 ML IV SCH ×2 (02:05→15:16)
[2019-03-20] MEDS: DUONEB (A & A) INH PRN (03:41)
[2019-03-20] MEDS: SOLU-MEDROL IV SCH ×3 (05:04→21:14)
[2019-03-20 06:01] LABS: HEMATOCRIT 41.7 % (42.0-52.0); HEMOGLOBIN 12.9 g/dL (14.0-18.0); IMM GRAN# 0.03 X1000 (0.0-0.04); IMM GRAN% 0.4 % (0.0-0.5); LYMPH# 0.47 X1000 (1.2-3.4); MCH 25.1 PG (27-31); MCHC 30.9 g/dL (33-37); MCV 81.1 FL (81-99); MONO# 0.05 X1000 (0.11-0.59); MONO% 0.7 % (1.7-9.3); MPV 8.9 FL (7.4-10.4); NEUT# 6.15 X1000 (1.4-6.5); NEUT% 91.9 % (42.2-75.2); PLT 279 X1000 (130-400); RBC 5.14 XMIL (4.7-6.1); RDW 16.1 % (11.5-14.5)
[2019-03-20 06:04] LABS: LYMPHS 7 % (21-51); SEGS 92 % (42-75)
[2019-03-20 06:05] LABS: MONO 1 % (1-9)
[2019-03-20] MEDS: PRILOSEC PO SCH (06:13)
[2019-03-20 06:16] LABS: AGAP 11; ALBUMIN 3.3 g/dL (3.5-5.0); ALKALINE PHOSPHATASE 108 U/L (32-122); BUN 11 mg/dL (8-22); CHLORIDE 101 mmol/L (98-107); COSMO 276; CREATININE 0.8 mg/dL (0.7-1.2); ESTIMATED GFR > 60; GLUCOSE 213 mg/dL (70-104); GOT 17 U/L (10-34); GPT 10 U/L (10-44); POTASSIUM 3.8 mmol/L (3.5-5.1); SODIUM 135 mmol/L (136-145); TCO2 23 mmol/L (25-35); TOTAL PROTEIN 7.4 g/dL (6.3-8.3)
[2019-03-20] MEDS: DUONEB (A & A) INH SCH ×5 (08:10→23:01)
[2019-03-20] MEDS: LOVENOX SUBQ SCH (08:18)
[2019-03-20] MEDS: VANCOMYCIN 2,000 MG in NS 500 ML IV SCH (08:18)
[2019-03-20] MEDS: NS 1,000 ML IV SCH (12:16)
--- NOTE | 2019-03-20 14:26 | PROGRESS NOTE ---
DATE: 03/20/2019 SUBJECTIVE: The patient notes that he is feeling a little bit better. He is still having cough and shortness of breath but overall is improving. PHYSICAL EXAMINATION: Vital Signs: Reviewed: Temp 98 degrees, pulse 104, respiratory 18, BP 160/75. General: Patient is awake, currently in no respiratory distress. HEENT: Normocephalic. Neck: Supple. Cardiovascular: Regular rate Chest: Decreased but equal breath sounds. Abdomen: Soft, nondistended. Extremities: Moves all extremities. ASSESSMENT: 1. Left lower lobe pneumonia likely postobstructive. 2. Lung mass with a history of bronchoalveolar carcinoma stage IV. 3. Chronic hypoxic respiratory failure. 4. Hypertension. PLAN: We will continue patient in the hospital on antibiotics, steroids, breathing treatments, oxygen. We will continue to follow, symptomatic treatment as needed. cc: Anderson Wallace MD
--- NOTE | 2019-03-20 15:04 | HISTORY AND PHYSICAL ---
ADDENDUM: Patient was seen and examined by me in the ER. Full note dictated and discussed with nurse practitioner. Patient presented to the hospital with a known history of stage IV metastatic carcinoma that is relegated to comfort measures. He was noted to have pneumonia. We are going to admit him to the hospital, place him on antibiotics, breathing treatments, and will follow. Please see full note. cc: Anderson Wallace MD
[2019-03-20] MEDS ORDERED: LASIX IV ONE (18:44)
[2019-03-21] MEDS: NORCO-5 PO PRN ×3 (00:32→20:32)
[2019-03-21] MEDS: VANCOMYCIN 2,000 MG in NS 500 ML IV SCH (01:03)
[2019-03-21] MEDS: SOLU-MEDROL IV SCH ×3 (05:18→22:18)
[2019-03-21 05:46] LABS: HEMATOCRIT 39.2 % (42.0-52.0); HEMOGLOBIN 12.5 g/dL (14.0-18.0); MCH 25.5 PG (27-31); MCHC 31.9 g/dL (33-37); MCV 79.8 FL (81-99); RBC 4.91 XMIL (4.7-6.1); RDW 16.1 % (11.5-14.5); WBC 16.19 X1000 (4.8-10.8)
[2019-03-21 05:58] LABS: AGAP 13; BUN 15 mg/dL (8-22); CALCIUM 9.1 mg/dL (8.8-10.2); CHLORIDE 103 mmol/L (98-107); COSMO 283; CREATININE 0.9 mg/dL (0.7-1.2); ESTIMATED GFR > 60; GLUCOSE 174 mg/dL (70-104); POTASSIUM 3.4 mmol/L (3.5-5.1); SODIUM 139 mmol/L (136-145); TCO2 23 mmol/L (25-35)
[2019-03-21] MEDS: PRILOSEC PO SCH (06:07)
[2019-03-21] MEDS: DUONEB (A & A) INH SCH ×5 (07:37→23:31)
[2019-03-21] MEDS: MAXIPIME 2 GM in NS 100 ML IV SCH ×2 (09:06→19:59)
[2019-03-21] MEDS: LOVENOX SUBQ SCH (09:07)
--- NOTE | 2019-03-21 09:17 | EKG Report ---
Test Performed on : 03/21/2019 08:56:37 AM Test Reason : hr high Blood Pressure : / mmHG Vent. Rate : 133 BPM Atrial Rate : 166 BPM P-R Int : 000 ms QRS Dur : 088 ms QT Int : 332 ms P-R-T Axes : 000 -40 013 degrees QTc Int : 494 ms Atrial fibrillation. with rapid ventricular response. with premature ventricular or aberrantly conduc susie complexes. Left axis deviation Nonspecific ST abnormality Abnormal ECG When compared with ECG of 21-MAR-2019 08:55, (Unconfirmed) Atrial fibrillation. has replaced Sinus rhythm. Nonspecific T wave abnormality no longer evident in Lateral leads Unconfirmed Result
[2019-03-21] MEDS ORDERED: KLOR-CON PO ONE (09:32)
[2019-03-21] MEDS ORDERED: LOPRESSOR IV ONE (09:35)
[2019-03-21] MEDS ORDERED: CARDIZEM IV ONE (09:39)
[2019-03-21] MEDS ORDERED: MAGNESIUM SULFATE 4 GM/S.W.I. 4 GM/100 ML IVPB IV ONE (09:50)
[2019-03-21] MEDS: LOPRESSOR PO SCH ×2 (10:04→21:55)
[2019-03-21] MEDS: XANAX PO PRN ×2 (10:31→20:32)
--- NOTE | 2019-03-21 11:08 | PROGRESS NOTE ---
DATE: 03/21/2019 SUBJECTIVE: Mr. Travis Grove is a 73-year-old male. He is in no acute distress, only mildly short of breath, but has no issues with actual conversation. He states that he has been out of his Toprol for 2 days now. Today would be day 3, but we have resumed it. Otherwise, he has no other complaints. PHYSICAL EXAMINATION: Vital Signs: Temperature 97.5 degrees, heart rate 103, respiratory rate 20, blood pressure 155/72, O2 saturation 97% on 2 L nasal cannula. General: Mr. Travis Grove is a 73-year-old male. He is in no acute distress. He is able to answer questions appropriately. HEENT: Atraumatic, normocephalic. Pupils equal, round, and reactive to light. Extraocular movements intact. Mucous membranes are moist. Cardiovascular: Irregularly irregular. Tachycardic rate and rhythm. No rubs, gallops, or murmurs. Trace lower extremity edema. There are +2 dorsalis and radial pulses. Negative carotid bruits. Mild JVD. Pulmonary: Crackles in the bases, but no accessory muscle use. Only mild work of breathing, but not causing any issues with conversation. Tolerating 2 L nasal cannula. LABORATORY DATA: White blood cells 16,000, hemoglobin 12, hematocrit 39, platelet count 302,000. Sodium 139, potassium 3.4, BUN 15, creatinine 0.9, glucose 174, calcium 9.1. Magnesium 1.4. CK 71. Troponin less than 0.01. IMAGING: EKG this morning shows atrial fibrillation with RVR. Rate is 133. ASSESSMENT AND PLAN: 1. New-onset atrial fibrillation with rapid ventricular response. The patient denies any history of atrial fibrillation, and wants to deny that he has atrial fibrillation right now, but discussed with him that he truly does have atrial fibrillation. The rate currently is 130s to 150s. His blood pressure is stable in the 150s. Electrolytes are mildly abnormal, so will replace potassium, and will also replace his magnesium level. It has caused mild shortness of breath, so he has also received intravenous Lasix. Currently ordered is Cardizem intravenous 5 mg x1. If needed, we can do Lopressor 5 mg intravenously x1. Also instead of Toprol, will do metoprolol 25 twice daily, and start his dosing now. Will resume his aspirin that he takes daily, and apparently he states he is not going to take any other medications for it, but he is on a beta lizzie and he is on aspirin, so will make sure those are resumed. 2. Left lower lobe pneumonia, possibly postobstructive secondary to left lung mass, now with leukocytosis, but likely the leukocytosis is secondary to the steroid dosing. Antibiotic coverage is cefepime. He can also have guaifenesin AC if needed. 3. Chronic hypoxemic respiratory failure. Continue with 2 liters of oxygen. He is tolerating it well. He also has nebulizers. 4. Left lung mass with history of stage IV bronchioalveolar cell cancer without recent treatment. 5. Hypertension. His beta lizzie has been resumed. 6. Deep venous thrombosis prophylaxis. Lovenox 40 subcutaneously every 24 hours. 7. Anxiety. His home Xanax dosing has been resumed. 8. Complains of insomnia. Again, he can have the Xanax if he needs it. Dictated by MATEUS Mckeon for Anderson Wallace MD cc: MATEUS Mckeon MD
[2019-03-21] MEDS: ASPIRIN PO SCH (15:07)
--- NOTE | 2019-03-21 20:53 | EKG Report ---
Test Performed on : 03/21/2019 6:25:42 PM Test Reason : re-evaluate [email or web address] Blood Pressure : / mmHG Vent. Rate : 078 BPM Atrial Rate : 078 BPM P-R Int : 202 ms QRS Dur : 102 ms QT Int : 386 ms P-R-T Axes : 040 -19 017 degrees QTc Int : 440 ms Sinus rhythm. with premature atrial complexes. Septal infarct , age undetermined Abnormal ECG When compared with ECG of 21-MAR-2019 08:56, (Unconfirmed) Sinus rhythm. has replaced Atrial fibrillation. Vent. rate has decreased BY 55 BPM T wave inversion now evident in Anterior leads Confirmed by Janes Alexander MD ([id number]) on 04/08/2019 7:38:50 AM
--- NOTE | 2019-03-21 21:33 | PROGRESS NOTE ---
DATE: 03/21/2019 SUBJECTIVE: The patient notes he is feeling better. Still having some shortness of breath and coughing, but has improved. Denies any fevers, chills, or chest pain. PHYSICAL EXAM: Temperature 98.7, pulse 96, respiratory 18, BP 159/72.General: The patient is awake and alert. He is in minimal respiratory distress. Improved from admission. HEENT: Normocephalic. Neck: Supple. Cardiovascular: Regular rate. Chest: Decreased but equal breath sounds bilaterally. Abdomen: Soft. Extremities: Moves all extremities. ASSESSMENT: 1. Left lower lobe pneumonia, possibly postobstructive. 2. Left lung mass with a history of stage IV bronchoalveolar cell cancer. He has not been on treatments recently. 3. Chronic obstructive pulmonary disease with exacerbation. 4. Chronic hypoxic respiratory failure. PLAN: We are going to continue patient in the hospital. Continue Solu-Medrol, but decrease to 40 IV q.8h. Continue Maxipime. We are going to stop his vancomycin as he is improving. His leukocytosis is stable as is his hypokalemia. I am going to stop his IV fluids and we will follow. Hopefully home over the next 2 or 3 days. cc: Anderson Wallace MD
[2019-03-22] MEDS: XANAX PO PRN ×2 (01:11→21:43)
[2019-03-22] MEDS: SOLU-MEDROL IV SCH ×3 (05:15→22:11)
[2019-03-22] MEDS: PRILOSEC PO SCH (06:04)
[2019-03-22] MEDS: DUONEB (A & A) INH SCH ×5 (07:15→22:58)
[2019-03-22] MEDS: LOPRESSOR PO SCH ×2 (08:48→21:43)
[2019-03-22] MEDS: ASPIRIN PO SCH (08:48)
[2019-03-22] MEDS: LOVENOX SUBQ SCH (08:48)
[2019-03-22] MEDS: MAXIPIME 2 GM in NS 100 ML IV SCH ×2 (08:53→20:11)
[2019-03-22 10:18] LABS: PHOSPHORUS 1.7 mg/dL (2.7-4.5)
[2019-03-22 10:27] LABS: AGAP 11; BUN 21 mg/dL (8-22); CALCIUM 8.5 mg/dL (8.8-10.2); CHLORIDE 103 mmol/L (98-107); COSMO 284; CREATININE 0.7 mg/dL (0.7-1.2); ESTIMATED GFR > 60; GLUCOSE 225 mg/dL (70-104); POTASSIUM 3.8 mmol/L (3.5-5.1); SODIUM 137 mmol/L (136-145); TCO2 23 mmol/L (25-35)
[2019-03-22 10:39] LABS: HEMATOCRIT 40.4 % (42.0-52.0); HEMOGLOBIN 12.8 g/dL (14.0-18.0); IMM GRAN# 0.07 X1000 (0.0-0.04); IMM GRAN% 0.5 % (0.0-0.5); LYMPH# 0.32 X1000 (1.2-3.4); LYMPH% 2.1 % (20.5-51.1); MCH 25.3 PG (27-31); MCHC 31.7 g/dL (33-37); MCV 79.8 FL (81-99); MONO# 0.29 X1000 (0.11-0.59); MONO% 1.9 % (1.7-9.3); MPV 8.9 FL (7.4-10.4); NEUT# 14.34 X1000 (1.4-6.5); NEUT% 95.5 % (42.2-75.2); PLT 300 X1000 (130-400); RBC 5.06 XMIL (4.7-6.1); RDW 16.8 % (11.5-14.5); WBC 15.02 X1000 (4.8-10.8)
[2019-03-22 10:47] LABS: LYMPHS 4 % (21-51); MONO 2 % (1-9); SEGS 94 % (42-75)
[2019-03-22] MEDS ORDERED: SODIUM PHOSPHATE 40 MMOL in NS 250 ML IV ONE (11:30)
--- NOTE | 2019-03-22 11:48 | Diag Imaging Result Doc PS360 ---
EXAM: CHEST-2 VIEWS 03/22/2019 HISTORY: pna, history of lung cancer TECHNIQUE: PA and lateral chest COMMENT: There is ill-defined alveolar opacity in the mid lower lung field on the right. There are bilateral pleural fluid collections. There are postsurgical changes on the right with a hypoplastic sixth rib. The heart size is not enlarged. Compared to 03/19/2019 there has been no appreciable change. IMPRESSION: Bilateral pleural effusions. Pneumonia and/or mass in the left lower lobe. Electronically signed by Emigdio Saha 03/22/2019 11:45 AM
--- NOTE | 2019-03-22 12:53 | PROGRESS NOTE ---
DATE: 03/22/2019 SUBJECTIVE: Patient reports feeling better. Breathing okay, although he has not been out of the bed yet. OBJECTIVE: Vital Signs: Temperature 97.8 degrees, heart rate 90, respiratory rate 18, blood pressure 156/71, O2 saturation 96% on 2 L nasal cannula. General Examination: This is a chronically ill-appearing, 73-year-old, male, lying in bed, in no acute distress. Cardiovascular Examination: S1 and S2 heard. No murmurs, gallops, or rubs. Regular rate and rhythm. Respiratory Examination: Clear bilaterally to auscultation with coarse breath sounds noted in both pulmonary bases, as well as rhonchi. The patient is not using any accessory muscles or having work of breathing. Abdomen: Soft. Nontender to palpation. Bowel sounds present. No organomegaly. Extremities: No clubbing, cyanosis, or edema. Peripheral pulses present in both legs. Neurological Examination: The patient is alert and oriented x3. Moves 4 extremities. Laboratory Data: White cell count 15.02, hemoglobin 12.8, hematocrit 40.4, platelets 300,000. BMP that is okay. Phosphorus is 1.7, magnesium is 2.0. ASSESSMENT: 1. Acute respiratory failure secondary to left lower lobe pneumonia. 2. Left lung mass with history of stage IV bronchoalveolar cancer. 3. Chronic obstructive pulmonary disease exacerbation. 4. Acute on chronic respiratory failure. PLAN: At this point, the patient is on IV antibiotics. In this case, it is cefepime. Vancomycin has been discontinued. He is requiring 2 L of oxygen by nasal cannula which is the same amount of oxygen that he uses at home. We are going to check PA and lateral x-ray, see how he does. White cell count is still elevated because of the steroids. We will continue to check CBC. We have noticed that this patient has low phosphorus so we are going to replenish. Magnesium is back to normal. We will consult physical therapy and occupational therapy as well. We will continue to monitor this patient closely. cc: Hussein Stafford MD
[2019-03-22] MEDS ORDERED: DESYREL PO PRN (17:16)
[2019-03-22] MEDS: NORCO-5 PO PRN (21:43)
[2019-03-23] MEDS: DUONEB (A & A) INH PRN (01:54)
[2019-03-23] MEDS: SOLU-MEDROL IV SCH ×3 (05:16→20:09)
[2019-03-23] MEDS: PRILOSEC PO SCH (06:14)
[2019-03-23 06:23] LABS: BASO# 0.01 X1000 (0.0-0.2); BASO% 0.1 % (0.0-0.8); HEMATOCRIT 41.6 % (42.0-52.0); HEMOGLOBIN 13.2 g/dL (14.0-18.0); IMM GRAN# 0.09 X1000 (0.0-0.04); IMM GRAN% 0.6 % (0.0-0.5); LYMPH# 0.49 X1000 (1.2-3.4); MCH 25.2 PG (27-31); MCHC 31.7 g/dL (33-37); MCV 79.4 FL (81-99); MONO# 0.31 X1000 (0.11-0.59); MONO% 1.9 % (1.7-9.3); MPV 9.3 FL (7.4-10.4); NEUT# 15.22 X1000 (1.4-6.5); NEUT% 94.4 % (42.2-75.2); PLT 342 X1000 (130-400); RBC 5.24 XMIL (4.7-6.1); RDW 16.7 % (11.5-14.5); WBC 16.12 X1000 (4.8-10.8)
[2019-03-23 06:32] LABS: AGAP 12; BUN 22 mg/dL (8-22); CALCIUM 8.7 mg/dL (8.8-10.2); CHLORIDE 99 mmol/L (98-107); COSMO 277; CREATININE 0.7 mg/dL (0.7-1.2); ESTIMATED GFR > 60; GLUCOSE 155 mg/dL (70-104); PHOSPHORUS 2.4 mg/dL (2.7-4.5); POTASSIUM 3.6 mmol/L (3.5-5.1); SODIUM 135 mmol/L (136-145); TCO2 24 mmol/L (25-35)
[2019-03-23 06:46] LABS: BANDS 1 % (0-1); LYMPHS 3 % (21-51); MONO 2 % (1-9); SEGS 94 % (42-75)
[2019-03-23] MEDS: DUONEB (A & A) INH SCH ×4 (07:54→19:59)
[2019-03-23] MEDS ORDERED: SODIUM PHOSPHATE 35 MMOL in NS 250 ML IV ONE (08:45)
[2019-03-23] MEDS: NORCO-5 PO PRN ×2 (08:48→20:08)
[2019-03-23] MEDS: ASPIRIN PO SCH (08:48)
[2019-03-23] MEDS: LOPRESSOR PO SCH ×2 (08:48→20:08)
[2019-03-23] MEDS: MAXIPIME 2 GM in NS 100 ML IV SCH ×2 (08:49→20:08)
[2019-03-23] MEDS: LOVENOX SUBQ SCH (08:50)
--- NOTE | 2019-03-23 12:04 | PROGRESS NOTE ---
DATE: 03/23/2019 SUBJECTIVE: The patient reports still feeling somehow short of breath. Denies any fever or chills. OBJECTIVE: Vital Signs: Temperature 97.5 degrees, heart rate 76, respiratory rate 22, blood pressure 174/87, and O2 saturation 96% on 2 L nasal cannula. General: This is a chronically ill- appearing, 73-year-old male, lying in bed in no acute distress. Cardiovascular: S1, S2 heard. No murmurs, gallops, or rubs. Regular rate and rhythm. Respiratory: Clear bilaterally to auscultation. Minimal coarse breath sounds noted in both pulmonary bases. Patient not using any accessory muscles or having work of breathing. Abdomen: Soft. Nontender to palpation. Bowel sounds present. No organomegaly. Extremities: No clubbing, cyanosis, or edema. Peripheral pulses present in both legs. Neurological: Patient is alert and oriented x2. Moves all 4 extremities. LABORATORY DATA: Reviewed. ASSESSMENT AND PLAN: 1. Acute respiratory failure secondary to left lower lobe pneumonia. 2. Left lung mass with history of stage IV bronchioloalveolar cancer. 3. Chronic obstructive pulmonary disease exacerbation. 4. Acute respiratory failure. At this point, patient continues to be on IV antibiotics. Clinically, the patient reports that he is not completely back to his baseline. We will continue with cefepime. We will continue with oxygen 2 L. Per minute by nasal cannula. X-ray basically did not show any improvement, but did not show any worsening as well. Phosphorus is almost back to normal. We will continue to replenish. Physical Therapy has been consulted, and they recommend home health. We will continue to monitor this patient closely. cc: Hussein Stafford MD [facility]
[2019-03-23] MEDS: XANAX PO PRN (20:08)
[2019-03-24] MEDS: DUONEB (A & A) INH SCH ×6 (00:10→23:13)
[2019-03-24] MEDS: SOLU-MEDROL IV SCH ×4 (01:02→21:11)
[2019-03-24] MEDS: DUONEB (A & A) INH PRN (04:15)
[2019-03-24] MEDS: PRILOSEC PO SCH (06:43)
[2019-03-24 07:25] LABS: AGAP 12; BUN 25 mg/dL (8-22); CALCIUM 8.7 mg/dL (8.8-10.2); CHLORIDE 100 mmol/L (98-107); COSMO 282; CREATININE 0.8 mg/dL (0.7-1.2); GLUCOSE 204 mg/dL (70-104); MAGNESIUM 1.9 mg/dL (1.5-2.7); PHOSPHORUS 2.4 mg/dL (2.7-4.5); POTASSIUM 3.8 mmol/L (3.5-5.1); SODIUM 136 mmol/L (136-145); TCO2 25 mmol/L (25-35)
[2019-03-24 07:42] LABS: RBC 5.09 XMIL (4.7-6.1); WBC 13.25 X1000 (4.8-10.8)
[2019-03-24 07:43] LABS: BASO# 0.01 X1000 (0.0-0.2); BASO% 0.1 % (0.0-0.8); HEMATOCRIT 40.8 % (42.0-52.0); HEMOGLOBIN 12.9 g/dL (14.0-18.0); LYMPH# 0.42 X1000 (1.2-3.4); LYMPH% 3.2 % (20.5-51.1); MCH 25.3 PG (27-31); MCHC 31.6 g/dL (33-37); MCV 80.2 FL (81-99); MONO# 0.34 X1000 (0.11-0.59); MONO% 2.6 % (1.7-9.3); MPV 9.4 FL (7.4-10.4); NEUT# 12.37 X1000 (1.4-6.5); NEUT% 93.3 % (42.2-75.2); PLT 313 X1000 (130-400); RDW 16.8 % (11.5-14.5)
[2019-03-24 07:44] LABS: LYMPHS 3 % (21-51); MONO 2 % (1-9); SEGS 95 % (42-75)
[2019-03-24] MEDS: LOPRESSOR PO SCH ×2 (08:24→21:10)
[2019-03-24] MEDS: ASPIRIN PO SCH (08:24)
[2019-03-24] MEDS: LOVENOX SUBQ SCH (08:24)
[2019-03-24] MEDS: MAXIPIME 2 GM in NS 100 ML IV SCH ×2 (08:24→21:11)
[2019-03-24] MEDS: NORCO-5 PO PRN ×2 (08:28→21:09)
--- NOTE | 2019-03-24 12:56 | PROGRESS NOTE ---
DATE: 03/24/2019 SUBJECTIVE: The patient reports breathing better. Denies any fever or chills. He reports not being able to sleep at night. OBJECTIVE: Vital signs: Temperature 97.4, heart rate 68, respiratory rate 18, blood pressure 168/67, O2 saturation 98% on 2 L nasal cannula. General Examination: This is a chronically ill- appearing, 73-year-old male, lying in bed, in no acute distress. Cardiovascular: S1, S2 heard. No murmurs, gallops, or rubs. Regular rate and rhythm. Respiratory: Clear bilaterally to auscultation. Minimal coarse breath sounds still noted in both pulmonary bases but patient is not using any accessory muscles or having work of breathing. Abdomen: Soft, nontender to palpation. Bowel sounds present. No organomegaly. Extremities: No clubbing, cyanosis, or edema. Peripheral pulses present in both legs. Neurological: Patient alert and oriented x3. Moves 4 extremities. LABORATORY DATA: Reviewed. ASSESSMENT: 1. Acute respiratory failure secondary to left lower lobe pneumonia. 2. Left lung mass with history of stage IV bronchioalveolar cancer. 3. Chronic obstructive pulmonary disease exacerbation. 4. Acute respiratory failure. PLAN: At this point, the patient continues to be on IV antibiotics. Clinically, this patient reports feeling better. At this point, we will continue with current management. Patient also reports feeling very weak and he wanted to be sent to rehab facility. We will consult psych social worker and will go from there. Patient currently medically stable. cc: Hussein Stafford MD
[2019-03-24] MEDS ORDERED: SEROQUEL PO SCH (21:00)
[2019-03-24] MEDS ORDERED: AMBIEN PO SCH (21:00)
[2019-03-25] MEDS: SOLU-MEDROL IV SCH ×2 (06:06→15:23)
[2019-03-25] MEDS: PRILOSEC PO SCH (06:06)
[2019-03-25 06:19] LABS: AGAP 10; BUN 26 mg/dL (8-22); CALCIUM 8.5 mg/dL (8.8-10.2); CHLORIDE 101 mmol/L (98-107); COSMO 278; CREATININE 0.6 mg/dL (0.7-1.2); ESTIMATED GFR > 60; GLUCOSE 159 mg/dL (70-104); PHOSPHORUS 2.6 mg/dL (2.7-4.5); SODIUM 135 mmol/L (136-145); TCO2 25 mmol/L (25-35)
[2019-03-25 06:27] LABS: BASO# 0.01 X1000 (0.0-0.2); BASO% 0.1 % (0.0-0.8); HEMATOCRIT 39.8 % (42.0-52.0); HEMOGLOBIN 12.5 g/dL (14.0-18.0); IMM GRAN% 1.6 % (0.0-0.5); LYMPH# 0.38 X1000 (1.2-3.4); MCH 25.3 PG (27-31); MCHC 31.4 g/dL (33-37); MCV 80.4 FL (81-99); MONO# 0.43 X1000 (0.11-0.59); MONO% 3.4 % (1.7-9.3); MPV 9.3 FL (7.4-10.4); NEUT# 11.58 X1000 (1.4-6.5); NEUT% 91.9 % (42.2-75.2); PLT 291 X1000 (130-400); RBC 4.95 XMIL (4.7-6.1); RDW 16.7 % (11.5-14.5)
[2019-03-25] MEDS: DUONEB (A & A) INH SCH ×3 (07:49→15:20)
[2019-03-25 08:04] LABS: LYMPHS 5 % (21-51); MONO 3 % (1-9); SEGS 92 % (42-75)
[2019-03-25] MEDS: MAXIPIME 2 GM in NS 100 ML IV SCH (09:50)
[2019-03-25] MEDS: LOVENOX SUBQ SCH (09:52)
[2019-03-25] MEDS: ASPIRIN PO SCH (09:52)
[2019-03-25] MEDS: LOPRESSOR PO SCH (09:52)
[2019-03-25] MEDS: NORCO-5 PO PRN (10:30)
[2019-03-25 14:07] VITALS: BP 152/61
--- NOTE | 2019-03-25 15:38 | DISCHARGE SUMMARY ---
ADMISSION DATE: 03/19/2019 DISCHARGE DATE: 03/25/2019 ADMISSION DIAGNOSES: 1. Left lower lobe pneumonia, possibly postobstructive. 2. Left lung mass. 3. Chronic hypoxemic respiratory failure. 4. Hypertension. 5. 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 DISCHARGE DIAGNOSES: 1. Acute respiratory failure secondary to left lower lobe pneumonia. 2. Left lung mass with history of stage IV bronchioalveolar cancer. 3. Chronic obstructive pulmonary disease exacerbation. 4. Acute respiratory failure. 5. New onset atrial fibrillation with rapid ventricular response, resolved the same day it happened. CONSULTATIONS: None. SURGERIES AND PROCEDURES: None. HOSPITAL COURSE: Mr. Travis Grove is a 73-year-old male who presented on the with complaints of shortness of breath and cough. 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 Apparently, he had been having at least 2 weeks of shortness of breath and cough, but 3 days prior to admission developed a productive cough with shortness of breath. He had to have 2 to 3 pillows just to sleep. He denied chills, chest pain, palpitations. He was placed on telemetry, given oxygen, started on incentive spirometer, and DuoNeb. Sputum culture was ordered, but never obtained. Started on vancomycin and cefepime pain. It is noted on the he went into atrial fibrillation with RVR, but apparently he had not taken his beta lizzie, so that was resumed and he almost, with in within no time on 12/19, converted back to a sinus rhythm after resuming his beta lizzie. He actually has no history of atrial fibrillation. He is stable for discharge for rehab. DISCHARGE VITAL SIGNS: Temperature 97.9 degrees, heart rate 72, respiratory rate 18, blood pressure 152/61, O2 saturation 98% on 2 L nasal cannula. LAB DATA: White blood cells 12,000, hemoglobin 12, hematocrit 39, platelet count 291,000. Sodium 135, potassium 4.0, BUN is 26, creatinine 0.6, glucose 159, phosphorus 2.6, calcium 8.5. Blood cultures were negative. IMAGING: Chest x-ray on the , a large left lower lobe infiltrate or mass. There is trace pleural effusion with that and there is stable right pleural effusion. Then, a chest x-ray on the showed the bilateral pleural effusions, pneumonia and/or mass in the left lower lobe, so essentially no big change from the 16th. EKGs on the , atrial fibrillation with RVR, rate 133. This was at almost 9 a.m. that day and then had a repeat around 4:30 in the afternoon, which showed sinus rhythm, rate 78, QTc was 440. DISCHARGE MEDICATIONS: 1. Xanax 0.25 mg p.o. twice daily p.r.n. 2. Prilosec 40 mg p.o. daily. 3. Steroid dose pack. 4. Metoprolol 25 mg p.o. twice daily. 5. Levaquin 750 mg p.o. daily for 7 days. 6. [place] to 7.5 one tablet p.o. every 6 hours p.r.n. for pain. 7. Albuterol Atrovent every 4 hours p.r.n. 8. Aspirin 81 mg p.o. daily. 9. Ambien 10 mg p.o. nightly. DISCHARGE DIET: Ensure and heart healthy diet. DISCHARGE ACTIVITY: With physical therapy. PHYSICIAN FOLLOWUPS: Cardiology and his primary care provider. DISCHARGE INSTRUCTIONS: If shortness of breath, any signs or symptoms of infections such as fever to seek medical advice and take all medications as prescribed. Continue your Levaquin and your steroids. DISCHARGE DISPOSITION: [facility]. Dictated by MATEUS Mckeon for Hussein Stafford MD Addendum: Patient seen and examined by myself. Agree with MATEUS note. It reflects my assessment and plan. Patient is being discharged in stable condition to rehab. Will be seen by PCP upon discharge. cc: MATEUS Mckeon MD [facility]
== END 2019-03-25 18:01 | DRG 193 ==
LOC: P.ED 07:32 → P.MEDSURG 10:49 → SUATTDRO 10:49
PROVIDERS: ATTEND Internal Medicine

== ENCOUNTER 2019-04-01 19:03 | Inpatient (IN) ==
[2019-04-01 19:33] LABS: BASO# 0.01 X1000 (0.0-0.2); BASO% 0.1 % (0.0-0.8); EOS# 0.19 X1000 (0.0-0.7); EOS% 1.5 % (0.0-10.0); HEMATOCRIT 41.8 % (42.0-52.0); HEMOGLOBIN 13.5 g/dL (14.0-18.0); IMM GRAN# 0.15 X1000 (0.0-0.04); IMM GRAN% 1.2 % (0.0-0.5); LYMPH# 1.83 X1000 (1.2-3.4); LYMPH% 14.7 % (20.5-51.1); MCH 26.5 PG (27-31); MCHC 32.3 g/dL (33-37); MONO# 1.08 X1000 (0.11-0.59); MONO% 8.7 % (1.7-9.3); MPV 9.5 FL (7.4-10.4); NEUT# 9.19 X1000 (1.4-6.5); NEUT% 73.8 % (42.2-75.2); PLT 182 X1000 (130-400); RDW 18.6 % (11.5-14.5); WBC 12.45 X1000 (4.8-10.8)
--- NOTE | 2019-04-01 19:42 | Diag Imaging Result Doc PS360 ---
EXAM: CHEST-PORTABLE HISTORY: sob TECHNIQUE: Single view COMPARISON: 03/22/2019 FINDINGS: There are small pleural effusions. Persistent pneumonia or mass in the lower left lung. The heart is not enlarged. No pulmonary edema. IMPRESSION: Stable chest Electronically signed by Se Paige 04/01/2019 7:40 PM
[2019-04-01] MEDS ORDERED: LEVAQUIN 500 MG/D5W 500 MG/100 ML IVPB IV ONE (19:46)
[2019-04-01 19:53] LABS: PROTIME 13.7 Seconds (11.0-16.0)
[2019-04-01 19:54] LABS: PTT 27.3 Seconds (22.3-41.8)
[2019-04-01 19:56] LABS: BLOOD TYPE ARTERIAL; HCO3-(ACT) 25.6 mmoll (20.0-26.0); METHB 1.2 % (0.0-1.5); O2(CT) 19.2 mL/dL (15.0-23.0); O2HB 94.7 % (95.0-99.0); PCO2(98.6) 42 mmHg (35-45); PO2(98.6) 88 mmHg (60-100); SAMPLE BLOOD; SAO2 98.5 % (95.0-100.0); THB 14.4 g/dL (11.5-17.4)
[2019-04-01] MEDS ORDERED: DUONEB (A & A) INH ONE (19:58)
[2019-04-01 20:03] LABS: AGAP 10; ALBUMIN 3.3 g/dL (3.5-5.0); ALKALINE PHOSPHATASE 95 U/L (32-122); BUN 21 mg/dL (8-22); CALCIUM 8.2 mg/dL (8.8-10.2); CHLORIDE 101 mmol/L (98-107); COSMO 275; CREATININE 0.8 mg/dL (0.7-1.2); ESTIMATED GFR > 60; GLUCOSE 141 mg/dL (70-104); GOT 24 U/L (10-34); GPT 40 U/L (10-44); POTASSIUM 4.2 mmol/L (3.5-5.1); SODIUM 135 mmol/L (136-145); TCO2 24 mmol/L (25-35); TOTAL PROTEIN 5.8 g/dL (6.3-8.3)
[2019-04-01] MEDS ORDERED: ROCEPHIN 1 GM in NS 50 ML IV ONE (20:20)
[2019-04-01] MEDS ORDERED: ZITHROMAX 500 MG/NS 500 MG/250 ML IVPB IV ONE (20:20)
[2019-04-01] MEDS ORDERED: REGLAN PO ONE (20:29)
[2019-04-01 20:37] LABS: ALLEN TEST YES; MODALITY CANNULA
--- NOTE | 2019-04-01 20:45 | PROVIDER DOCUMENTATION ---
This chart was entered by Christine Burns Scribe, acting as scribe for Amanda Randle CRNP. HPI-Respiratory General - General Source: patient, EMS - History of Present Illness-Resp Quality of Pain: reports: tightness Severity in ED: reports: moderate Onset/Duration: reports: gradual (since 2am but been ongoing for last 2mnths) Timing: reports: still present, getting worse Current Respiratory Medication Therapy: Initiated see nurses note Modifying Factors: worse with: exertion, deep breath Associated Symptoms: reports: shortness of breath Similar Symptoms Previously?: Yes Recently seen or treated by another doctor?: No <Amanda Randle - Last Filed: 04/01/19 20:42> <Adalberto Ortiz - Last Filed: 04/01/19 21:52> - General Chief Complaint: Shortness of Breath Stated Complaint: sob Time Seen by Provider: 04/01/19 19:10 Allergies/Adverse Reactions: Patient Allergies Allergy/AdvReac Type Severity Reaction Status Date / Time No Known Allergies Allergy Verified 06/13/18 06:00 Home Medications: Home Medication List Medication Instructions Recorded Confirmed Last Taken Type Metoprolol [Lopressor] 25 mg PO DAILY 08/21/14 03/19/19 06/10/18 History Albuterol 2.5MG/Ipratrop 0.5MG 3 ml INH Q4H PRN PRN neb 03/25/19 Unknown Rx [Duoneb (A & A)] Alprazolam [Xanax] 0.25 mg PO BID PRN PRN #30 tab 03/25/19 Unknown Rx Aspirin 81 mg PO DAILY chewtab 03/25/19 Unknown Rx Hydrocodone/Acetaminophen 1 tab PO Q6H PRN PRN #30 tab 03/25/19 Unknown Rx [Hydrocodone-Acetamin 7.5-325] Levofloxacin 750 mg PO DAILY #7 tab 03/25/19 Unknown Rx Methylprednisolone [Medrol Dosepak] 4 mg PO DIRECTED #1 pkg 03/25/19 Unknown Rx Metoprolol [Lopressor] 25 mg PO BID #60 tab 03/25/19 Unknown Rx Omeprazole [Prilosec] 40 mg PO DAILY@0700 cap 03/25/19 Unknown Rx - History of Present Illness-Resp Nature of Presenting Problem: 73yom presents to ED by EMS cc SOB and cough since 2am . Pt reports he has hx of lung cancer but isn't under going any chemo or radiation and SOB has been getting worse over last 2 months. EMS reports pt received duoneb in route to ED. Pt is nontoxic in appearance upon exam. (Amanda Randle) Review of Systems - Adult - REVIEW OF SYSTEMS - ADULT Constitutional: reports: see HPI, fatique. denies: chills, fever Eyes: reports: no symptoms reported Ears, Nose, Mouth & Throat: reports: no symptoms reported Cardiovascular: reports: no symptoms reported Respiratory: reports: see HPI, cough, shortness of breath, wheezing Gastrointestinal: reports: no symptoms reported Genitourinary: reports: no symptoms reported Musculoskeletal: reports: no symptoms reported Integumentary: reports: no symptoms reported Neurological: reports: no symptoms reported Psychiatric: reports: no symptoms reported Endocrine: reports: no symptoms reported Hematologic/Lymphatic: reports: no symptoms reported Allergic/Immunologic: reports: no symptoms reported All Other Systems: Reviewed and Negative <Amanda Randle - Last Filed: 04/01/19 20:42> Past History - Adult - PAST MEDICAL HISTORY-ADULT Review of Records: reports: Nursing Assessment Review, Medications Reviewed, Social history reviewed & non-contributory. Major Childhood Illnesses: reports: denies history Cardiovascular: reports: HTN. denies: CHF, CO Respiratory: reports: cancer (lung--still had but is no longer wanting treatment), pneumonia Gastrointestinal: reports: denies history Obstetrical/Gynecological: reports: denies history Genitourinary: reports: denies history Musculoskeletal: reports: arthritis (RA), chronic pain Neurological: reports: denies history Endocrine/Immune: reports: denies history Other Conditions: reports: denies history - PRIOR SURGERIES/PROCEDURES Surgical/Procedure History: reports: other (lobectomy RLL, RML; port placement) - IMMUNIZATION STATUS Childhood Immunizations: See Nurse Assessment Flu Vaccine: See Nurse Assessment - FAMILY HISTORY Family History: reviewed, not pertinent - SOCIAL HISTORY Smoking: denies <Amanda Randle - Last Filed: 04/01/19 20:42> Physical Exam-General - PHYSICAL EXAM-ADULT Initial Vital Signs Reviewed: Yes - CONSTITUTIONAL General Appearance: alert, mild distress. negative: anxious, combative - EYES Eyes: PERRL/EOMI, pink conjunctivae. negative: photophobia - HEAD, EARS, NOSE, MOUTH & THROAT HENMT: normocephalic/atraumatic, moist mucous membranes. negative: angioedema - RESPIRATORY Respiratory: chest non-tender, decreased breath sounds (right lower), wheezing (left). negative: rales, rhonchi - CARDIOVASCULAR Cardiovascular: normal peripheral pulses, regular rate, rhythm, no edema. negative: bradycardia, tachycardia - GASTROINTESTINAL (ABDOMEN) Abdominal Exam: normal bowel sounds, non tender, soft. negative: distended, guarding, rigid, rebound - MUSCULOSKELETAL Extremity: normal inspection, normal capillary refill. negative: deformity - SKIN Integumentary: normal color. negative: diaphoresis, jaundice - PSYCHIATRIC Psych/Mental Status: normal mood/affect, oriented x 3. negative: anxious, disheveled <Amanda Randle - Last Filed: 04/01/19 20:42> - HEART Score HEART Score: History: Slightly Suspicious HEART Score: ECG: Non-Specific Repolarization Disturbance/LBBB/PM HEART Score: Age: > or = 65 Years HEART Score: Risk Factors for Atherosclerotic Disease: 1 or 2 Risk Factors HEART Score: Troponin: < or = Normal Limit Total HEART Score:: 4 <Amanda Randle - Last Filed: 04/01/19 20:42> Progress - PLAN OF CARE/RESULTS Result Diagrams: 04/01/19 19:25 04/01/19 19:25 - EKG 1 Time of EKG reading by physician:: 19:45 EKG Read and Signed by:: Adalberto Ortiz EKG Interpretation (*Must complete 3 of following elements*): Abnormal Rate: 84 Rhythm: Sinus w/PAC's Collins: left ST Wave: normal - XRAY 1 XRAY: Bilateral XRAY Study: Chest Impression: See EMR Report (IMPRESSION: Stable chest Electronically signed by Se Paige 04/01/2019 7:40 PM) - CONSULTS/PCP/HOSPITALIST Notification #1 *Consult/PCP/Hospitalist*: Dr. Ureña Time Discussed: 20:44 Consult Disposition: Admit <Amanda Randle - Last Filed: 04/01/19 20:42> - PLAN OF CARE/RESULTS Result Diagrams: 04/01/19 19:25 04/01/19 19:25 <Adalberto Ortiz - Last Filed: 04/01/19 21:52> - PLAN OF CARE/RESULTS Progress/Plan/Lab Results: Vital Signs - 8 hr 04/01/19 19:04 04/01/19 20:06 04/01/19 20:26 Temperature 98.5 F 98.5 F Pulse Rate 95 H 83 87 Respiratory Rate 19 22 21 Blood Pressure 129/64 116/64 O2 Sat by Pulse Oximetry 97 95 96 Laboratory Results - last 24 hr 04/01/19 04/01/19 04/01/19 19:25 19:25 19:25 WBC 12.45 H RBC 5.10 Hgb 13.5 L Hct 41.8 L MCV 82.0 MCH 26.5 L MCHC 32.3 L RDW Std Deviation 18.6 H Plt Count 182 MPV 9.5 Immature Gran % (Auto) 1.2 H Neut % (Auto) 73.8 Lymph % (Auto) 14.7 L [place] % (Auto) 8.7 Eos % (Auto) 1.5 Baso % (Auto) 0.1 Immature Gran # (Auto) 0.15 H Neut # (Auto) 9.19 H Lymph # (Auto) 1.83 [place] # (Auto) 1.08 H Eos # (Auto) 0.19 Baso # (Auto) 0.01 PT INR PTT (Actin FS) Specimen Type Sample Site pH pCO2 pO2 HCO3 Base Excess Oxyhemoglobin ABG O2 Sat (Calculated) ABG O2 Saturation ABG Carboxyhemoglobin ABG Methemoglobin Sukhwinder Test A-a O2 Difference Total Hemoglobin Lactate Liter Flow Blood Gas Modality FiO2 % Sodium 135 L Potassium 4.2 Chloride 101 Carbon Dioxide 24 L Anion Gap 10 BUN 21 Creatinine 0.8 Estimated GFR/1.73 m2 > 60 BUN/Creatinine Ratio 26 Glucose 141 H Calculated Osmolality 275 Calcium 8.2 L Magnesium Total Bilirubin 0.60 AST 24 ALT 40 Alkaline Phosphatase 95 Creatine Kinase Troponin T < 0.010 Total Protein 5.8 L Albumin 3.3 L Globulin 3.0 Albumin/Globulin Ratio 1.0 Plasma Lactate Urine Source Urine Color Urine Turbidity Urine pH Ur Specific [place] Urine Protein Ur Glucose (Stick) Ur Ketones (Stick) Urine Blood Urine Nitrite Urine Bilirubin Urobilinogen Dipstick Urine Leukocytes Urine WBC (Auto) Urine RBC (Auto) U Epithel Cells (Auto) Urine Bacteria (Auto) 04/01/19 04/01/19 04/01/19 19:25 19:25 19:35 WBC RBC Hgb Hct MCV MCH MCHC RDW Std Deviation Plt Count MPV Immature Gran % (Auto) Neut % (Auto) Lymph % (Auto) [place] % (Auto) Eos % (Auto) Baso % (Auto) Immature Gran # (Auto) Neut # (Auto) Lymph # (Auto) [place] # (Auto) Eos # (Auto) Baso # (Auto) PT INR PTT (Actin FS) Specimen Type ARTERIAL Sample Site L RADIAL pH 7.40 pCO2 42 pO2 88 HCO3 25.6 Base Excess 1.0 Oxyhemoglobin 94.7 L ABG O2 Sat (Calculated) 19.2 ABG O2 Saturation 98.5 ABG Carboxyhemoglobin 2.60 H ABG Methemoglobin 1.2 Sukhwinder Test YES A-a O2 Difference 73.0 Total Hemoglobin 14.4 Lactate 1.50 Liter Flow 2.5 Blood Gas Modality CANNULA FiO2 % 30.0 Sodium Potassium Chloride Carbon Dioxide Anion Gap BUN Creatinine Estimated GFR/1.73 m2 BUN/Creatinine Ratio Glucose Calculated Osmolality Calcium Magnesium 1.8 Total Bilirubin AST ALT Alkaline Phosphatase Creatine Kinase 19 L Troponin T Total Protein Albumin Globulin Albumin/Globulin Ratio Plasma Lactate Urine Source Urine Color Urine Turbidity Urine pH Ur Specific [place] Urine Protein Ur Glucose (Stick) Ur Ketones (Stick) Urine Blood Urine Nitrite Urine Bilirubin Urobilinogen Dipstick Urine Leukocytes Urine WBC (Auto) Urine RBC (Auto) U Epithel Cells (Auto) Urine Bacteria (Auto) 04/01/19 04/01/19 04/01/19 19:36 20:15 20:35 WBC RBC Hgb Hct MCV MCH MCHC RDW Std Deviation Plt Count MPV Immature Gran % (Auto) Neut % (Auto) Lymph % (Auto) [place] % (Auto) Eos % (Auto) Baso % (Auto) Immature Gran # (Auto) Neut # (Auto) Lymph # (Auto) [place] # (Auto) Eos # (Auto) Baso # (Auto) PT 13.7 INR 1.00 PTT (Actin FS) 27.3 Specimen Type Sample Site pH pCO2 pO2 HCO3 Base Excess Oxyhemoglobin ABG O2 Sat (Calculated) ABG O2 Saturation ABG Carboxyhemoglobin ABG Methemoglobin Sukhwinder Test A-a O2 Difference Total Hemoglobin Lactate Liter Flow Blood Gas Modality FiO2 % Sodium Potassium Chloride Carbon Dioxide Anion Gap BUN Creatinine Estimated GFR/1.73 m2 BUN/Creatinine Ratio Glucose Calculated Osmolality Calcium Magnesium Total Bilirubin AST ALT Alkaline Phosphatase Creatine Kinase Troponin T Total Protein Albumin Globulin Albumin/Globulin Ratio Plasma Lactate 1.6 Urine Source CLEAN CATCH Urine Color STRAW Urine Turbidity Not Reportable Urine pH 6.0 Ur Specific [place] 1.015 Urine Protein 10 A Ur Glucose (Stick) NEGATIVE Ur Ketones (Stick) NEGATIVE Urine Blood SMALL A Urine Nitrite NEGATIVE Urine Bilirubin NEGATIVE Urobilinogen Dipstick NORMAL Urine Leukocytes NEGATIVE Urine WBC (Auto) <10 Urine RBC (Auto) 10-20 A U Epithel Cells (Auto) <10 Urine Bacteria (Auto) 1+ Orders Category Date Time Status Admit - [facility] Routine AdmDCTranf 04/01/19 20:45 Active Activity - Bed Rest with BRP ORDERED Care 04/01/19 20:45 Active Cardiac Monitoring DIRECTED Care 04/01/19 19:47 Active Code [Resuscitation Status] Routine Care 04/01/19 21:50 Ordered IV Insertion ORDERED Care 04/01/19 19:47 Completed Neurological Check Q6H Care 04/01/19 20:45 Active Notify Physician As Ordered Care 04/01/19 19:47 Active Saline Loc DIRECTED Care 04/01/19 20:45 Active Vital Signs Order ROUTINE Care 04/01/19 20:45 Active Z-Document. for Tele Applied ORDERED Care 04/01/19 20:46 Active Heart Healthy Diet Diet 04/01/19 20:46 Active cxr [CHEST-PORTABLE] [RAD] Stat Exams 04/01/19 19:11 Completed ABG [RESP] Routine Lab 04/01/19 19:35 Completed BC [BLOOD CULTURE] [BLDCUL] Stat Lab 04/01/19 20:19 Ordered CBC WITH ELECTRONIC DIFF [HEME] Stat Lab 04/01/19 19:25 Completed CK PROFILE [SP CHEM] Stat Lab 04/01/19 19:25 Completed COMPREHENSIVE METABOLIC PANEL [CHEM] Stat Lab 04/01/19 19:25 Completed LACTATE, PLASMA [CHEM] Lab 04/01/19 20:15 Completed LACTATE, PLASMA [CHEM] Lab 04/01/19 23:00 Uncollected LACTATE, PLASMA [CHEM] Lab 04/02/19 02:00 Uncollected MAGNESIUM [CHEM] Stat Lab 04/01/19 19:25 Completed PROTIME WITH INR [COAG] Stat Lab 04/01/19 19:36 Completed PTT [COAG] Stat Lab 04/01/19 19:36 Completed TROPONIN T Stat Lab 04/01/19 19:25 Completed URINALYSIS W/POSS RFLX CULT [URINALYSIS] Stat Lab 04/01/19 20:35 Completed URINE CULTURE [RM] Routine Lab 04/01/19 21:29 Ordered Albuterol 2.5MG/Ipratrop 0.5MG [Duoneb (A & A)] Med 04/01/19 19:58 Discontinued 3 ml INH NOW ONE Azithromycin 500 mg/Ns [Zithromax 500 mg/Ns] Med 04/01/19 20:20 Discontinued 500 mg in 250 ml IV NOW CefTRIAXONE [Rocephin] 1 gm Med 04/01/19 20:20 Discontinued 0.9% Sodium Chloride Inj [Ns] 50 ml IV NOW Levofloxacin 500 mg/D5w [Levaquin 500 mg/D5w] Med 04/01/19 19:46 Discontinued 500 mg in 100 ml IV NOW Metoclopramide [Reglan] Med 04/01/19 20:29 Discontinued 10 mg PO NOW ONE Aerosol Treatments Routine Oth 04/01/19 19:59 Completed Aerosol Treatments Stat Oth 04/01/19 19:59 Completed Oxygen Device Routine Oth 04/01/19 20:46 Active Oxygen Device Stat Oth 04/01/19 19:47 Active Telemetry [OM.EQ] Routine Oth 04/01/19 20:45 Active EKG [EKG] Stat Ther 04/01/19 19:10 Ordered Transfer/Admit Order [TRANSFER] Routine Transfer 04/01/19 20:46 Ordered discussed advanced directives with patient who requests no CPR or intubation in event of cardiac arrest. Patient reports that he has written advanced directives that request DNR status. (Adalberto Ortiz) Departure - Departure Date of Disposition Decision: 04/01/19 Time of Disposition Decision: 20:44 Certified Medical Emergency: Emergent - Critical Care Note This patient required my direct & personal management of CC.: No <Amanda Randle - Last Filed: 04/01/19 20:42> <Adalberto Ortiz - Last Filed: 04/01/19 21:52> - Departure DIAGNOSIS: Shortness of breath Disposition: ADMITTED INPATIENT 09 Condition: Stable Additional Instructions: ED Follow Up Instructions: You have been treated by a care provider in the Emergency Department. These instructions are being provided to you so you can have an understanding of how to care for yourself upon discharge. Upon discharge from the Emergency Department, you are responsible for making arrangements for follow-up care by a physician of your choice. Take all prescribed medications as directed. Return to the Emergency Department immediately for any new or worsening symptoms. You may call the Physician Referral phone number at [phone] to obtain a list of Physicians who are taking new patients. Referrals and Follow-Ups: None,PCP [Primary Care Provider] - Attestation - Physician/ ADALGISA Attestation Patient care was provided by Advanced Practice Provider:: Yes Advanced Practice Provider:: Amanda Randle Advanced Practice Provider documentation review:: The Mid-level provider documentation, treatment plan and medical decision making was reviewed by the physician who agrees with all treatment and medical decision making by the MLP. The physician spent face to face time with patient:: No Advanced Practice Provider documentation review:: Supervising physician onsite and consulted in the evaluation and care of this patient. The physician did not have a face to face encounter with the patient. <Amanda Randle - Last Filed: 04/01/19 20:42> This chart was documented by the indicated scribe, (Christine Burns Scribe) and accurately reflects the services I performed and decisions made by me, Amanda Randle CRNP, as attested by the provider's signature.
[2019-04-01 20:48] LABS: URINE SOURCE CLEAN CATCH
[2019-04-01 21:24] LABS: BLOOD URINE SMALL (NEGATIVE); SP GRAVITY URINE 1.015
[2019-04-01 21:25] LABS: BILIRUBIN URINE NEGATIVE (NEGATIVE); COLOR STRAW; GLUCOSE URINE NEGATIVE (NEGATIVE); KETONE URINE NEGATIVE (NEGATIVE); LEUKOCYTES URINE NEGATIVE (NEGATIVE); NITRITE URINE NEGATIVE (NEGATIVE); UROBILINOGEN URINE NORMAL (NORMAL)
[2019-04-01 21:26] LABS: PROTEIN URINE 10 mg/dL (NEGATIVE)
[2019-04-01 21:28] LABS: UR EPITHELIAL CELLS <10 /HPF (<10); URINE BACTERIA 1+ /HPF; URINE WBC <10 /HPF (<10)
--- NOTE | 2019-04-01 22:38 | EKG Report ---
Test Performed on : 04/01/2019 7:46:33 PM Test Reason : sob Blood Pressure : / mmHG Vent. Rate : 084 BPM Atrial Rate : 084 BPM P-R Int : 196 ms QRS Dur : 082 ms QT Int : 350 ms P-R-T Axes : 036 -45 038 degrees QTc Int : 413 ms Sinus rhythm. with premature atrial complexes. Left axis deviation Inferior infarct , age undetermined Anterior infarct (cited on or before 21-MAR-2019) Abnormal ECG When compared with ECG of 21-MAR-2019 18:25, (Unconfirmed) Questionable change in QRS duration Inferior infarct is now present Questionable change in initial forces of Anteroseptal leads Unconfirmed Result
[2019-04-01] MEDS ORDERED: XANAX PO PRN (23:29)
[2019-04-01] MEDS ORDERED: NORCO-7.5 PO PRN (23:29)
[2019-04-02] MEDS ORDERED: FLU VACCINE IM ONE
[2019-04-02] MEDS ORDERED: PNEUMOVAX 23 IM ONE (00:01)
[2019-04-02] MEDS: SOLU-MEDROL IV SCH ×3 (00:26→22:59)
[2019-04-02] MEDS ORDERED: NORCO-7.5 PO PRN (00:38)
[2019-04-02] MEDS: DUONEB (A & A) INH SCH ×6 (02:38→23:25)
[2019-04-02] MEDS ORDERED: ZOFRAN IV PRN (07:42)
[2019-04-02] MEDS ORDERED: TYLENOL PO PRN (07:42)
[2019-04-02] MEDS ORDERED: SALINE LOCK IV FLUID XX ONE (07:42)
[2019-04-02] MEDS ORDERED: XANAX PO PRN (07:44)
[2019-04-02] MEDS ORDERED: VANCOMYCIN IV PER PHARMACY MISC SCH (08:45)
[2019-04-02] MEDS ORDERED: NS 1,000 ML IV SCH (09:45)
[2019-04-02] MEDS: MAXIPIME 1 GM in NS 50 ML IV SCH ×2 (09:54→20:43)
[2019-04-02] MEDS: HEPARIN SUBQ SCH ×2 (09:55→20:43)
[2019-04-02] MEDS: LOPRESSOR PO SCH (09:55)
[2019-04-02] MEDS: FLOMAX PO SCH (09:55)
[2019-04-02] MEDS: ASPIRIN PO SCH (09:55)
[2019-04-02] MEDS: VANCOMYCIN 2,000 MG in NS 500 ML IV SCH (11:04)
[2019-04-02] MEDS ORDERED: DESYREL PO PRN (11:17)
--- NOTE | 2019-04-02 11:53 | HISTORY AND PHYSICAL ---
PRIMARY CARE PHYSICIANS: Dr. Margo Rocha. CHIEF COMPLAINT: Shortness of breath. HISTORY OF PRESENT ILLNESS: Mr. Grove is a 73-year-old gentleman who has a history of stage IV metastatic bronchioloalveolar carcinoma, hypertension, and arthritis and chronic hypoxemic respiratory failure, on home O2, who had recently been admitted to our service on March 19 and was diagnosed with a left lower lobe pneumonia, possibly postobstructive, and a left lung mass. He was treated and discharged to [facility] on the , but left the rehab on the after a less than pleasurable experience. On the he reports he had been feeling fine up until 3 a.m. Thursday morning when he started to have a cough with some shortness of breath, then his cough and shortness of breath started progressively getting worse. He then started having a productive cough with grayish-white sputum, with some wheezing. Sitting up in his recliner did not help it. He did not get any relief from his home nebulizers, so he came to the ED to be evaluated where workup revealed a white count of 12, and a persistent left lower lobe pneumonia. He was admitted to the hospital and started on IV antibiotics. Given his recent discharge from hospital and rehab we will place him on broader spectrum antibiotics. Continue his home O2, bronchodilators, steroids and aggressive pulmonary toilet. PAST MEDICAL HISTORY: Stage IV metastatic bronchoalveolar carcinoma. Hypertension. 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 Chronic hypoxemic respiratory failure on home O2. Previous atrial fibrillation with RVR; his last hospital visit he was on metoprolol. PAST SURGICAL HISTORY: Right lower lobe and right middle lobectomy. SOCIAL HISTORY: No alcohol, tobacco, or illicit drug use. He is . He does have children. FAMILY HISTORY: Positive for heart disease with his mother and father. His father had COPD. ALLERGIES: No known drug allergies. HOME MEDICATIONS: Xanax 0.25 mg p.o. twice daily p.r.n. Prilosec 40 mg p.o. daily. Metoprolol 25 mg p.o. daily. Aspirin 81 mg p.o. daily. DuoNeb 3 mL inhaled q.4 hours p.r.n. Prilosec 40 mg p.o. daily. [place] 5/325 one each p.o. t.i.d. p.r.n. REVIEW OF SYSTEMS: Twelve-point review of systems completely negative except for those mentioned in HPI. No reported fever or chills, nausea, vomiting, diarrhea, or constipation. He did report some issues with his urinary flow that had never been an issue before. PHYSICAL EXAMINATION: VITAL SIGNS: Temperature is 97.4 degrees, heart rate 70, respirations 18, blood pressure 133/71, O2 is 99% on 2 L nasal cannula. GENERAL: Mr. Grove is a pleasant 73-year-old male who is sitting up in the bed in no acute distress. HEENT: Atraumatic, normocephalic. PERRL. NECK: Supple. Trachea midline. CARDIOVASCULAR: S1, S2 appreciated. No murmurs, gallops, or rubs noted. No JVD noted. No lower extremity edema. PULMONARY: Bilateral breath sounds were clear, with some scattered rhonchi to the left lower base. No current wheezes or rales. GI: Soft, nontender, nondistended. Positive bowel sounds in all 4 quadrants. NEUROLOGIC: The patient is awake, alert, oriented, no focal deficits noted. SKIN: Warm, dry, and intact. DIAGNOSTIC DATA: Chest x-ray, small pleural effusion, persistent pneumonia or mass in the lower left lung. No pulmonary edema. The heart is not enlarged. LABORATORY DATA: White count 12, hemoglobin and hematocrit 13 and 41, platelet count is 182,000. Sodium 135, potassium 4.2, BUN 21, creatinine 0.8, blood glucose is 141. Plasma lactate 1.1. Urinalysis 1+ bacteria, negative for leukocytes, negative for nitrites. ASSESSMENT AND PLAN: 1. Persistent left lower lobe pneumonia, possibly obstructed. He does have a known left lung mass. With patient's recent admission to the hospital and rehab we will broaden the spectrum of his antibiotics with vancomycin and cefepime. Continue on bronchodilators, IV steroids and aggressive pulmonary toilet, supplemental O2. Blood cultures have been obtained. We will try to get a sputum culture as he has had a productive cough. We will get Physical Therapy involved. However, given his recent experience at rehab, he may be hesitant to go back. He may possibly be interested in home physical therapy or even outpatient rehab. 2. Known stage IV metastatic bronchioloalveolar carcinoma. 3. Hypertension. Continue home regimen. 4. Arthritis in bilateral shoulders and hips. We will continue home pain regimen. 5. Chronic hypoxemic respiratory failure. We will continue his home O2. 6. Urinary hesitancy. We will start the patient on Flomax. 7. Further recommendations to follow physician evaluation, laboratory and diagnostic data. 8. The patient is a DNR level 1. We will get Palliative as well as [facility] involved for goals of care. Dictated by MATEUS Arreaga for Anderson Wallace MD cc: MD Margo Reyes MD
--- NOTE | 2019-04-02 13:00 | HISTORY AND PHYSICAL ---
ADDENDUM: Patient seen and examined by myself. Full note dictated and discussed with nurse practitioner. HISTORY OF PRESENT ILLNESS: Patient presented to the hospital with increased work of breathing, chest tightness. Notes that it worsened early this morning, but it started approximately 2 months ago. Notes he had lung cancer. He was treated with chemotherapy for approximately 8 years, but has not had any treatments in the past 4 years. I am going to admit him the hospital, place him on antibiotics, breathing treatments. Restart his home medications when doses can be verified. cc: Anderson Wallace MD
[2019-04-02] MEDS: NORCO-5 PO PRN ×2 (15:30→22:37)
[2019-04-02] MEDS: XANAX PO PRN (20:44)
[2019-04-02] MEDS ORDERED: ROCEPHIN 1 GM in NS 50 ML IV SCH (22:54)
[2019-04-02] MEDS ORDERED: ZITHROMAX 500 MG/NS 500 MG/250 ML IVPB IV SCH (22:54)
[2019-04-03] MEDS: DUONEB (A & A) INH SCH ×6 (03:48→23:11)
[2019-04-03] MEDS: PRILOSEC PO SCH (06:18)
[2019-04-03 06:41] LABS: BASO# 0.01 X1000 (0.0-0.2); BASO% 0.1 % (0.0-0.8); HEMATOCRIT 42.3 % (42.0-52.0); HEMOGLOBIN 13.4 g/dL (14.0-18.0); IMM GRAN# 0.05 X1000 (0.0-0.04); IMM GRAN% 0.3 % (0.0-0.5); LYMPH% 2.1 % (20.5-51.1); MCHC 31.7 g/dL (33-37); MONO# 0.21 X1000 (0.11-0.59); MONO% 1.4 % (1.7-9.3); MPV 9.4 FL (7.4-10.4); NEUT# 14.02 X1000 (1.4-6.5); NEUT% 96.1 % (42.2-75.2); PLT 166 X1000 (130-400); RBC 5.16 XMIL (4.7-6.1); RDW 18.1 % (11.5-14.5); WBC 14.59 X1000 (4.8-10.8)
[2019-04-03 06:59] LABS: AGAP 13; ALBUMIN 3.3 g/dL (3.5-5.0); ALKALINE PHOSPHATASE 99 U/L (32-122); BUN 21 mg/dL (8-22); CALCIUM 8.5 mg/dL (8.8-10.2); CHLORIDE 100 mmol/L (98-107); COSMO 280; CREATININE 0.6 mg/dL (0.7-1.2); ESTIMATED GFR > 60; GLUCOSE 163 mg/dL (70-104); GOT 16 U/L (10-34); GPT 36 U/L (10-44); POTASSIUM 4.3 mmol/L (3.5-5.1); SODIUM 137 mmol/L (136-145); TCO2 24 mmol/L (25-35); TOTAL PROTEIN 6.5 g/dL (6.3-8.3)
--- NOTE | 2019-04-03 07:05 | Diag Imaging Result Doc PS360 ---
EXAM: CHEST-PORTABLE HISTORY: short of breath TECHNIQUE: Single view COMPARISON: 04/01/2019 FINDINGS: Poor inspiratory effort. Persistent left lower lobe infiltrates. There is basilar atelectasis and small pleural effusions. No change in the left-sided portacatheter. No pneumothorax. IMPRESSION: No interval improvement Electronically signed by Se Paige 04/03/2019 7:02 AM
[2019-04-03 08:13] LABS: BANDS 1 % (0-1); LYMPHS 3 % (21-51); MONO 2 % (1-9); SEGS 94 % (42-75)
[2019-04-03] MEDS: LOPRESSOR PO SCH (08:44)
[2019-04-03] MEDS: ASPIRIN PO SCH (08:44)
[2019-04-03] MEDS: HEPARIN SUBQ SCH ×3 (08:44→20:46)
[2019-04-03] MEDS: FLOMAX PO SCH (08:44)
[2019-04-03] MEDS: MAXIPIME 1 GM in NS 50 ML IV SCH ×2 (08:44→20:42)
[2019-04-03] MEDS: VANCOMYCIN 2,000 MG in NS 500 ML IV SCH (10:51)
[2019-04-03] MEDS: SOLU-MEDROL IV SCH ×2 (11:39→22:00)
--- NOTE | 2019-04-03 13:34 | PROGRESS NOTE ---
DATE: 04/03/2019 SUBJECTIVE: The patient notes he is feeling a lot better. His shortness of breath has improved. Denies any fevers or chills. PHYSICAL EXAMINATION: Vital Signs: Reviewed. Temp 97.7 degrees, pulse 77, respiratory rate 18, BP 161/71. General: The patient is awake. Currently, he is in no respiratory distress. HEENT: Normocephalic. Neck: Supple. Cardiovascular: Regular rate. No murmurs. Chest: Clear. Nonlabored. Abdomen: Soft. Extremities: Moves all extremities. Neurologic: No changes. ASSESSMENT: 1. Persistent left lower lobe pneumonia. Currently, he is on cefepime and vancomycin. We are going to stop the vancomycin, and switch him to oral doxycycline. 2. Known stage IV bronchioloalveolar carcinoma, which is likely contributing, if not causing his pneumonia. 3. Hypertension. 4. Arthritis. 5. Leukocytosis. 6. DO NOT RESUSCITATE level 1. 7. Benign prostatic hypertrophy. PLAN: Will continue the patient in the hospital. Will continue to follow. Adjust his antibiotics. Hopefully home within the next 1 or 2 days. cc: Anderson Wallace MD
[2019-04-03] MEDS: NORCO-5 PO PRN (15:36)
[2019-04-03] MEDS: DOXYCYCLINE PO SCH (20:41)
[2019-04-04] MEDS: NORCO-5 PO PRN ×2 (01:24→19:45)
[2019-04-04] MEDS: DUONEB (A & A) INH SCH ×6 (03:33→23:28)
[2019-04-04] MEDS: PRILOSEC PO SCH (06:06)
[2019-04-04] MEDS: LOPRESSOR PO SCH (08:44)
[2019-04-04] MEDS: HEPARIN SUBQ SCH ×2 (08:44→20:47)
[2019-04-04] MEDS: ASPIRIN PO SCH (08:44)
[2019-04-04] MEDS: OMNICEF PO SCH ×2 (08:44→20:46)
[2019-04-04] MEDS: FLOMAX PO SCH (08:44)
[2019-04-04] MEDS: DOXYCYCLINE PO SCH ×2 (08:44→20:46)
[2019-04-04] MEDS: SOLU-MEDROL IV SCH ×2 (20:47→23:33)
--- NOTE | 2019-04-05 01:45 | PROGRESS NOTE ---
DATE: 04/04/2019 SUBJECTIVE: The patient notes he is feeling tremendously better, but still having cough, congestion and shortness of breath. OBJECTIVE: Vital Signs: Reviewed. Temperature 97.9 degrees, pulse 98, respiratory rate 18, blood pressure 151/82. General: The patient is pleasant. He is in no current respiratory distress. HEENT: Normocephalic. Neck: Supple. Cardiovascular: Regular rate. Chest: Clear. Abdomen: Soft. Extremities: Moves all extremities. ASSESSMENT: 1. Persistent left lower lobe pneumonia likely related to obstruction due to his known bronchioloalveolar carcinoma. 2. Stage IV metastatic bronchioloalveolar carcinoma. 3. Hypertension. 4. Chronic hypoxic respiratory failure. 5. BPH with urinary hesitancy. He is currently on Flomax. PLAN: We are going to continue to wean steroids. Continue his antibiotics. Hopefully if he improves he may be able to discharge home over the next 1 or 2 days. cc: Anderson Wallace MD
[2019-04-05] MEDS: DUONEB (A & A) INH SCH ×3 (04:00→11:42)
[2019-04-05] MEDS: PRILOSEC PO SCH (06:09)
[2019-04-05] MEDS ORDERED: CARDIZEM IV ONE (08:57)
[2019-04-05] MEDS: HEPARIN SUBQ SCH ×2 (09:15→20:20)
[2019-04-05] MEDS: DOXYCYCLINE PO SCH (09:20)
[2019-04-05] MEDS: OMNICEF PO SCH (09:20)
[2019-04-05] MEDS: FLOMAX PO SCH (09:20)
[2019-04-05] MEDS: LOPRESSOR PO SCH (09:20)
[2019-04-05] MEDS: ASPIRIN PO SCH (09:20)
[2019-04-05] MEDS: CARDIZEM PO SCH ×3 (09:20→19:58)
--- NOTE | 2019-04-05 09:50 | EKG Report ---
Test Performed on : 04/05/2019 08:56:36 AM Test Reason : a fib Blood Pressure : / mmHG Vent. Rate : 139 BPM Atrial Rate : 576 BPM P-R Int : 000 ms QRS Dur : 092 ms QT Int : 294 ms P-R-T Axes : 000 -37 059 degrees QTc Int : 447 ms Atrial fibrillation. with rapid ventricular response. with premature ventricular or aberrantly conduc susie complexes. Left axis deviation Anterior infarct (cited on or before 21-MAR-2019) Abnormal ECG When compared with ECG of 01-APR-2019 19:46, (Unconfirmed) Atrial fibrillation. has replaced Sinus rhythm. Vent. rate has increased BY 55 BPM Nonspecific T wave abnormality no longer evident in Anterior leads Confirmed by Janes Alexander MD ([id number]) on 04/08/2019 7:31:55 AM
[2019-04-05] MEDS: ATROVENT NEB INH SCH ×2 (15:37→21:24)
[2019-04-05] MEDS: XOPENEX NEB INH SCH ×2 (15:37→21:24)
--- NOTE | 2019-04-05 17:16 | PROGRESS NOTE ---
DATE: 04/05/2019 SUBJECTIVE: Patient has no major complaints. OBJECTIVE: Vital signs: Blood pressure is 157/84, heart rate 68, respiratory rate of 20, temperature 97.6 degrees. Cardiovascular: Regular rate and rhythm. Pulmonary: Bilateral breath sounds. Clear to auscultation. GI: Soft, nontender, nondistended. Bowel sounds are positive. LABORATORY DATA: White count 14, hemoglobin and hematocrit 13 and 42, platelets of 166,000. Basic was normal. PROBLEM LIST: 1. Left lower lobe pneumonia associated with cancer. He is still on antibiotics. Currently, the patient is on doxycycline and Omnicef. We may need to expand for aspiration coverage. I am going to switch him to Augmentin. 2. Atrial fibrillation with rapid ventricular response. Is not completely rate controlled. We have been able to lower his rate. I am going to change his nebulizer, breathing treatments as well too. Continue Cardizem and we may initiate some digoxin. We will follow clinically. 3. Lung cancer, bronchioalveolar carcinoma. In the process of treatment. We will continue to follow. DISPOSITION: Anticipate discharge hopefully soon. cc: Jamel Pressley MD
[2019-04-05] MEDS: NORCO-5 PO PRN (20:24)
[2019-04-05] MEDS: SOLU-MEDROL IV SCH (22:07)
[2019-04-05] MEDS: XANAX PO PRN (22:12)
[2019-04-06] MEDS: CARDIZEM PO SCH ×3 (01:17→14:29)
[2019-04-06] MEDS: ATROVENT NEB INH SCH ×3 (03:22→15:40)
[2019-04-06 06:22] LABS: AGAP 9; BUN 27 mg/dL (8-22); CALCIUM 8.3 mg/dL (8.8-10.2); CHLORIDE 100 mmol/L (98-107); COSMO 280; CREATININE 0.7 mg/dL (0.7-1.2); ESTIMATED GFR > 60; GLUCOSE 216 mg/dL (70-104); MAGNESIUM 1.8 mg/dL (1.5-2.7); POTASSIUM 4.8 mmol/L (3.5-5.1); SODIUM 134 mmol/L (136-145); TCO2 25 mmol/L (25-35)
[2019-04-06] MEDS: PRILOSEC PO SCH (06:23)
[2019-04-06 06:31] LABS: HEMATOCRIT 39.4 % (42.0-52.0); HEMOGLOBIN 12.4 g/dL (14.0-18.0); IMM GRAN# 0.03 X1000 (0.0-0.04); IMM GRAN% 0.4 % (0.0-0.5); LYMPH# 0.28 X1000 (1.2-3.4); LYMPH% 3.5 % (20.5-51.1); MCH 25.9 PG (27-31); MCHC 31.5 g/dL (33-37); MCV 82.4 FL (81-99); MONO# 0.12 X1000 (0.11-0.59); MONO% 1.5 % (1.7-9.3); MPV 9.6 FL (7.4-10.4); NEUT% 94.6 % (42.2-75.2); PLT 150 X1000 (130-400); RBC 4.78 XMIL (4.7-6.1); RDW 18.7 % (11.5-14.5); WBC 7.93 X1000 (4.8-10.8)
[2019-04-06] MEDS: NORCO-5 PO PRN (08:38)
[2019-04-06] MEDS: LOPRESSOR PO SCH (08:39)
[2019-04-06] MEDS: HEPARIN SUBQ SCH (08:39)
[2019-04-06] MEDS: FLOMAX PO SCH (08:39)
[2019-04-06] MEDS: ASPIRIN PO SCH (08:40)
[2019-04-06 08:47] LABS: EOS 1 % (1-10); LYMPHS 3 % (21-51); MONO 2 % (1-9); SEGS 94 % (42-75)
[2019-04-06] MEDS: XOPENEX NEB INH SCH ×2 (09:07→15:40)
[2019-04-06 16:09] VITALS: BP 120/57
--- NOTE | 2019-04-07 13:00 | DISCHARGE SUMMARY ---
ADMISSION DATE: 04/01/2019 DISCHARGE DATE: 04/06/2019 ADMISSION DIAGNOSES: 1. Bronchoalveolar carcinoma. 2. Left lower lobe pneumonia associated possibly with post obstruction. 3. Atrial fibrillation with rapid ventricular response with history of paroxysmal atrial fibrillation. CONSULTATIONS: None. HISTORY AND HOSPITAL COURSE: Briefly, the patient is 73. He was admitted for shortness of breath. He is on home oxygen. He came in with wheezing, was felt to have a left lower lobe pneumonia, was placed empirically on antibiotics. He had been a DNR-1 previously. Improved with vancomycin and cefepime, so we will continue to see that, we will continue to oral doxycycline and Omnicef. He seems to be doing okay. Wean steroids. We will continue antibiotics and follow. Clinically, he stabilized. The last 24 hours, he did have some relative tachycardia, so we will continue Cardizem, which he responded to without difficulty. He does qualify I think for possibly anticoagulation. He has had known atrial fibrillation and he is currently not anticoagulated, although I do not see that was in relationship to anything else. He also has not had an echocardiogram, and he has not had an echocardiogram in a while. We will set him up with outpatient followup, with Cardiology as well for his atrial fibrillation. Apparently, he has had this before. The last time he was admitted, which was new onset, and it resolved spontaneously. I think he does qualify for Eliquis. He is 73. So, we will initiate Eliquis and see how he does, probably hold aspirin at this time. DISCHARGE MEDICATIONS: His discharge medications are as follows: Xanax 0.25 daily, [place] p.r.n., Lopressor 25 daily, Atrovent every 6 hours, Augmentin 875 every 12 hours for 7 days, Cardizem CD 240 daily, norvasc 5 b.i.d., Flomax 0.4 daily, prednisone taper, Prilosec 40 daily. DISCHARGE CONDITION: Stable. FOLLOWUP: With Dr. Rocha and I think he also sees Dr. Thomas, also refer to [facility]. TIME SPENT: A 32 minute discharge. cc: Jamel Pressley MD [facility]
== END 2019-04-06 17:21 | disposition home or self-care (01) | DRG 178 ==
LOC: P.ED 19:03 → P.MEDSURG 22:29 → SUATTDRO 22:29
PROVIDERS: ATTEND Internal Medicine

== ENCOUNTER 2019-04-24 22:05 | Inpatient (IN) ==
[2019-04-24 22:20] LABS: BE 7.1 mmoll (-3.0-3.0); BLOOD TYPE ARTERIAL; HCO3-(ACT) 30.4 mmoll (20.0-26.0); METHB 1.4 % (0.0-1.5); O2(CT) 18.2 mL/dL (15.0-23.0); O2HB 94.5 % (95.0-99.0); PCO2(98.6) 45 mmHg (35-45); PO2(98.6) 80 mmHg (60-100); SAMPLE BLOOD; SAO2 97.9 % (95.0-100.0); THB 13.7 g/dL (11.5-17.4); pH(98.6) 7.46 (7.35-7.45)
--- NOTE | 2019-04-24 22:20 | PROVIDER DOCUMENTATION ---
HPI-Respiratory General - General Chief Complaint: Shortness of Breath Stated Complaint: dysnea Time Seen by Provider: 04/24/19 22:05 Source: patient Allergies/Adverse Reactions: Patient Allergies Allergy/AdvReac Type Severity Reaction Status Date / Time acetaminophen AdvReac Unknown Verified 04/24/19 22:05 [From Excedrin Extra Strength] aspirin AdvReac Unknown Verified 04/24/19 22:05 [From Excedrin Extra Strength] caffeine AdvReac Unknown Verified 04/24/19 22:05 [From Excedrin Extra Strength] Home Medications: Home Medication List Medication Instructions Recorded Confirmed Last Taken Type Metoprolol [Lopressor] 25 mg PO DAILY 08/21/14 04/24/19 04/01/19 08:00 History Omeprazole [Prilosec] 40 mg PO DAILY@0700 cap 03/25/19 04/24/19 04/01/19 08:00 Rx Alprazolam 0.25 mg PO DAILY PRN 04/02/19 04/24/19 Unknown History Hydrocodone/Acetaminophen 1 ea PO TID PRN 04/02/19 04/24/19 Unknown History [Hydrocodone-Acetamin 5-325 mg] Amoxicillin/Potassium Clav 1 ea PO Q12H #14 tab 04/06/19 04/24/19 Unknown Rx [Augmentin 875-125 Tablet] Apixaban [Eliquis] 5 mg PO BID #60 tab 04/06/19 04/24/19 Unknown Rx Diltiazem C.d. [Cardizem C.d] 240 mg PO DAILY #30 cap 04/06/19 04/24/19 Unknown Rx Ipratropium Max Neb [Atrovent 0.5 mg INH RTQ6H #120 neb 04/06/19 04/24/19 Unknown Rx Neb] Prednisone See Taper PO DAILY #30 tab 04/06/19 04/24/19 Unknown Rx Tamsulosin [Flomax] 0.4 mg PO DAILY #30 cap 04/06/19 04/24/19 Unknown Rx - History of Present Illness-Resp Nature of Presenting Problem: 73 YOM PRESENTS VIA EMS FOR SOB AND BLE EDEMA. HE WAS RECENTLY ADMITTED WITH PNEUMONIA. REPORTS HE HAS REMAINED SOB SINCE THAT TIME BUT THAT HIS LEGS BEGAN SWELLING MORE DESPITE BEING ON "MEDICINE TO MAKE HIM PEE". HE DENIES CP, N/V/D. REPORTS HE HAS BEEN GENERALLY WEAK WHICH WORSENED TODAY. DENIES FEVER. Quality of Pain: reports: none Severity in ED: reports: moderate Onset/Duration: reports: 3 days ago Timing: reports: still present, getting worse Cough Quality/Degree: reports: moderate Episode Frequency: chronic episodes Current Respiratory Medication Therapy: Not Used A/A nebulizer Modifying Factors: improves with: nothing Associated Symptoms: reports: cough, shortness of breath, other (WEAKNESS) Similar Symptoms Previously?: Yes Recently seen or treated by another doctor?: Yes (IN HOSPITAL ADMITTED MARCH) Review of Systems - Adult - REVIEW OF SYSTEMS - ADULT Constitutional: reports: no symptoms reported Eyes: reports: no symptoms reported. denies: see HPI, discharge, dry eyes, decreased vision, blurred vision, double vision, eye pain, redness, other Ears, Nose, Mouth & Throat: reports: no symptoms reported. denies: see HPI, ear discharge, ear pain, hearing loss, tinnitus, epistaxis, sinus problem, nose pain, loose teeth, mouth/dental pain, mouth swelling, hoarseness, throat pain, throat swelling, other Cardiovascular: reports: see HPI, edema. denies: no symptoms reported, chest pain, heart murmur, irregular heart rate, orthopnea, palpitations, poor circulation, PND, syncope, other Respiratory: reports: see HPI, cough, shortness of breath. denies: no symptoms reported, chronic cough, dyspnea on exertion, excessive sputum production, hemoptysis, pleurisy, wheezing, other Gastrointestinal: reports: no symptoms reported. denies: see HPI, abdominal pain, hematemesis, constipation, diarrhea, difficulty swallowing, frequent heartburn, nausea, poor appetite, rectal bleeding, vomiting, other Genitourinary: reports: no symptoms reported. denies: see HPI, dysuria, dischar ge, frequency, flank pain, frequent UTI's, hematuria, hesitency, incontinence, urinary retention, urgency, other Musculoskeletal: reports: muscle weakness (GENERALIZED). denies: no symptoms reported, see HPI, bone pain, back pain, frequent leg cramps, joint pain, joint swelling, muscle aches, neck pain, other Integumentary: reports: no symptoms reported. denies: see HPI, hives, hair loss, itching, mole changes, nail changes, rash, skin sores/ulcer, skin thickening, other Neurological: reports: no symptoms reported. denies: see HPI, ataxia, dizziness/vertigo, headache/migraines, loss of balance, numbness, paresthesia, seizure, slurred speech, syncope, tremors, other Psychiatric: reports: no symptoms reported. denies: see HPI, anxiety, anti- depressant use, alcohol/drug dependence, depression, emotional problems, insomnia, panic attacks, suicidal thoughts, other Endocrine: reports: no symptoms reported. denies: see HPI, change in skin pigment, excessive sweating, goiter, cold intolerance, heat intolerance, increased hunger, increased thirst, polyuria, other Hematologic/Lymphatic: reports: no symptoms reported. denies: see HPI, blood clots, easy bruising, low blood count, lymphedema, prolonged bleeding, swollen lymph nodes, transfusions, other Allergic/Immunologic: reports: no symptoms reported. denies: see HPI, allergic reactions, allergic rhinitis, asthma, eczema, food allergy, frequent infections, hay fever, hives, positive PPD, urticaria, other Past History - Adult - PAST MEDICAL HISTORY-ADULT Review of Records: reports: Nursing Assessment Review, Social history reviewed & non-contributory. Major Childhood Illnesses: reports: denies history Cardiovascular: reports: HTN. denies: CHF, [place] Respiratory: reports: cancer (lung--still had but is no longer wanting treatment), pneumonia Gastrointestinal: reports: denies history Obstetrical/Gynecological: reports: denies history Genitourinary: reports: denies history Musculoskeletal: reports: arthritis (RA), chronic pain Neurological: reports: denies history Endocrine/Immune: reports: denies history Other Conditions: reports: denies history - PRIOR SURGERIES/PROCEDURES Surgical/Procedure History: reports: other (lobectomy RLL, RML; port placement) - IMMUNIZATION STATUS Childhood Immunizations: See Nurse Assessment Flu Vaccine: See Nurse Assessment - FAMILY HISTORY Family History: reviewed, not pertinent Physical Exam-General - PHYSICAL EXAM-ADULT Initial Vital Signs Reviewed: Yes - CONSTITUTIONAL General Appearance: alert, mild distress - EYES Eyes: PERRL/EOMI, pink conjunctivae - HEAD, EARS, NOSE, MOUTH & THROAT HENMT: normocephalic/atraumatic, moist mucous membranes, normal ENT inspection - NECK Neck: non-tender, full range of motion, supple - RESPIRATORY Respiratory: chest non-tender, no accessory muscle use, crackles, rhonchi - CARDIOVASCULAR Cardiovascular: normal peripheral pulses, regular rate, rhythm, other (BLE EDEMA +3). negative: no edema - GASTROINTESTINAL (ABDOMEN) Abdominal Exam: normal bowel sounds, non tender, soft - LYMPHATIC Lymphatic: no adenopathy - MUSCULOSKELETAL Back Exam: normal inspection, no CVA tenderness, no vertebral tenderness Extremity: non-tender, swelling (BLE) Peripheral Pulses: radial (R): 2+, radial (L): 2+ - SKIN Integumentary: normal turgor, warm/dry - NEUROLOGIC Neurologic: grossly normal - PSYCHIATRIC Psych/Mental Status: normal mood/affect, oriented x 3 - HEART Score HEART Score: History: Slightly Suspicious HEART Score: ECG: Non-Specific Repolarization Disturbance/LBBB/PM HEART Score: Age: > or = 65 Years HEART Score: Risk Factors for Atherosclerotic Disease: > or = 3 Risk Factors or History of Atherosclerotic Disease HEART Score: Troponin: < or = Normal Limit Total HEART Score:: 5 Progress - PLAN OF CARE/RESULTS Progress/Plan/Lab Results: Vital Signs - 8 hr 04/24/19 22:00 Temperature 98.1 F Pulse Rate 65 Respiratory Rate 18 Blood Pressure 135/63 O2 Sat by Pulse Oximetry 92 L Laboratory Results - last 24 hr 04/24/19 04/24/19 04/24/19 21:56 22:07 22:07 WBC 10.72 RBC 5.01 Hgb 13.1 L Hct 43.0 MCV 85.8 MCH 26.1 L MCHC 30.5 L RDW Std Deviation 18.7 H Plt Count 227 MPV 8.8 Immature Gran % (Auto) 0.8 H Neut % (Auto) 81.9 H Lymph % (Auto) 8.5 L [place] % (Auto) 7.7 Eos % (Auto) 0.9 Baso % (Auto) 0.2 Immature Gran # (Auto) 0.09 H Neut # (Auto) 8.77 H Lymph # (Auto) 0.91 L [place] # (Auto) 0.83 H Eos # (Auto) 0.10 Baso # (Auto) 0.02 PT INR PTT (Actin FS) D-Dimer, Quantitative Specimen Type ARTERIAL Sample Site R RADIAL pH 7.46 H pCO2 45 pO2 80 HCO3 30.4 H Base Excess 7.1 H Oxyhemoglobin 94.5 L ABG O2 Sat (Calculated) 18.2 ABG O2 Saturation 97.9 ABG Carboxyhemoglobin 2.20 ABG Methemoglobin 1.4 Sukhwinder Test YES A-a O2 Difference 78.0 Total Hemoglobin 13.7 Lactate 1.00 Liter Flow 3.0 Blood Gas Modality CANNULA Sodium Potassium Chloride Carbon Dioxide Anion Gap BUN Creatinine Estimated GFR/1.73 m2 BUN/Creatinine Ratio Glucose Calculated Osmolality Calcium Magnesium Total Bilirubin AST ALT Alkaline Phosphatase Creatine Kinase Troponin T < 0.010 Iyp-P-Jfbdxcwkpdv Pept Total Protein Albumin Globulin Albumin/Globulin Ratio Plasma Lactate Urine Source Urine Color Urine Turbidity Urine pH Ur Specific [place] Urine Protein Ur Glucose (Stick) Ur Ketones (Stick) Urine Blood Urine Nitrite Urine Bilirubin Urobilinogen Dipstick Urine Leukocytes Urine WBC (Auto) Urine RBC (Auto) U Epithel Cells (Auto) Urine Bacteria (Auto) 04/24/19 04/24/19 04/24/19 22:07 22:07 22:07 WBC RBC Hgb Hct MCV MCH MCHC RDW Std Deviation Plt Count MPV Immature Gran % (Auto) Neut % (Auto) Lymph % (Auto) [place] % (Auto) Eos % (Auto) Baso % (Auto) Immature Gran # (Auto) Neut # (Auto) Lymph # (Auto) [place] # (Auto) Eos # (Auto) Baso # (Auto) PT 14.3 INR 1.06 PTT (Actin FS) 31.0 D-Dimer, Quantitative Specimen Type Sample Site pH pCO2 pO2 HCO3 Base Excess Oxyhemoglobin ABG O2 Sat (Calculated) ABG O2 Saturation ABG Carboxyhemoglobin ABG Methemoglobin Sukhwinder Test A-a O2 Difference Total Hemoglobin Lactate Liter Flow Blood Gas Modality Sodium 137 Potassium 4.4 Chloride 95 L Carbon Dioxide 33 Anion Gap 10 BUN 27 H Creatinine 1.0 Estimated GFR/1.73 m2 > 60 BUN/Creatinine Ratio 27 Glucose 120 H Calculated Osmolality 280 Calcium 8.8 Magnesium 1.7 Total Bilirubin 0.40 AST 28 ALT 98 H Alkaline Phosphatase 123 H Creatine Kinase 12 L Troponin T Nbw-S-Rnpdjohrttm Pept 1260 H Total Protein 6.0 L Albumin 3.4 L Globulin 3.0 Albumin/Globulin Ratio 1.0 Plasma Lactate Urine Source Urine Color Urine Turbidity Urine pH Ur Specific [place] Urine Protein Ur Glucose (Stick) Ur Ketones (Stick) Urine Blood Urine Nitrite Urine Bilirubin Urobilinogen Dipstick Urine Leukocytes Urine WBC (Auto) Urine RBC (Auto) U Epithel Cells (Auto) Urine Bacteria (Auto) 04/24/19 04/24/19 04/24/19 22:07 22:07 22:38 WBC RBC Hgb Hct MCV MCH MCHC RDW Std Deviation Plt Count MPV Immature Gran % (Auto) Neut % (Auto) Lymph % (Auto) [place] % (Auto) Eos % (Auto) Baso % (Auto) Immature Gran # (Auto) Neut # (Auto) Lymph # (Auto) [place] # (Auto) Eos # (Auto) Baso # (Auto) PT INR PTT (Actin FS) D-Dimer, Quantitative 1.47 H Specimen Type Sample Site pH pCO2 pO2 HCO3 Base Excess Oxyhemoglobin ABG O2 Sat (Calculated) ABG O2 Saturation ABG Carboxyhemoglobin ABG Methemoglobin Sukhwinder Test A-a O2 Difference Total Hemoglobin Lactate Liter Flow Blood Gas Modality Sodium Potassium Chloride Carbon Dioxide Anion Gap BUN Creatinine Estimated GFR/1.73 m2 BUN/Creatinine Ratio Glucose Calculated Osmolality Calcium Magnesium Total Bilirubin AST ALT Alkaline Phosphatase Creatine Kinase Troponin T Glx-D-Fknhntxgkdy Pept Total Protein Albumin Globulin Albumin/Globulin Ratio Plasma Lactate 1.3 Urine Source CLEAN CATCH Urine Color YELLOW Urine Turbidity CLEAR Urine pH 6.5 Ur Specific [place] 1.021 Urine Protein NEGATIVE Ur Glucose (Stick) NEGATIVE Ur Ketones (Stick) NEGATIVE Urine Blood NEGATIVE Urine Nitrite NEGATIVE Urine Bilirubin NEGATIVE Urobilinogen Dipstick 2 A Urine Leukocytes NEGATIVE Urine WBC (Auto) <10 Urine RBC (Auto) <10 U Epithel Cells (Auto) <10 Urine Bacteria (Auto) 1+ Orders Category Date Time Status Admit - [facility] Routine AdmDCTranf 04/25/19 00:27 Active Activity - Bed Rest with BRP ORDERED Care 04/25/19 00:27 Active Cardiac Monitoring DIRECTED Care 04/24/19 21:57 Active Code [Resuscitation Status] Routine Care 04/24/19 22:40 Completed Code [Resuscitation Status] Routine Care 04/24/19 22:41 Ordered Rowell Cath Insertion ORDERED Care 04/24/19 22:45 Active Saline Loc DIRECTED Care 04/25/19 00:27 Active Saline Loc NOW Care 04/24/19 21:57 Active Vital Signs Order ROUTINE Care 04/25/19 00:27 Active Z-Document. for Tele Applied ORDERED Care 04/25/19 00:28 Active Palliative Care Consult [OM.CSS] Routine Cons 04/25/19 00:31 Active Heart Healthy Diet Diet 04/25/19 00:28 Active CHEST-PORTABLE [RAD] Stat Exams 04/24/19 21:[address] ANGIOGRM PULMONARY ARTERIES [CT] Stat Exams 04/24/19 22:53 Taken FOOT COMPLETE LEFT [RAD] Stat Exams 04/24/19 22:33 Taken ABG [RESP] Routine Lab 04/24/19 21:56 Completed BLOOD CULTURE [BLDCUL] Stat Lab 04/24/19 22:27 Ordered CBC WITH DIFF [HEME] Stat Lab 04/24/19 22:07 Completed CK PROFILE [SP CHEM] Stat Lab 04/24/19 22:07 Completed COMPREHENSIVE METABOLIC PANEL [CHEM] Stat Lab 04/24/19 22:07 Completed D-DIMER [COAG] Stat Lab 04/24/19 22:07 Completed LACTATE, PLASMA [CHEM] Lab 04/25/19 01:15 Uncollected LACTATE, PLASMA [CHEM] Lab 04/25/19 04:15 Uncollected LACTATE, PLASMA [CHEM] Q3H Lab 04/24/19 22:07 Completed MAGNESIUM [CHEM] Stat Lab 04/24/19 22:07 Completed PRO B-NATRIURETIC PEPTIDE Stat Lab 04/24/19 22:07 Completed PROTIME WITH INR [COAG] Stat Lab 04/24/19 22:07 Completed PTT [COAG] Stat Lab 04/24/19 22:07 Completed TROPONIN T Stat Lab 04/24/19 22:07 Completed URINALYSIS W/POSS RFLX CULT [URINALYSIS] Stat Lab 04/24/19 22:38 Completed Furosemide [Lasix] Med 04/24/19 23:02 Discontinued 40 mg IV NOW ONE Levofloxacin 500 mg/D5w [Levaquin 500 mg/D5w] Med 04/25/19 00:16 Active 500 mg in 100 ml IV NOW Oxygen Device Routine Oth 04/25/19 00:28 Active Oxygen Device Stat Oth 04/24/19 21:57 Completed Telemetry [OM.EQ] Routine Oth 04/25/19 00:27 Active EKG [EKG] Stat Ther 04/24/19 21:57 Ordered Transfer/Admit Order [TRANSFER] Routine Transfer 04/25/19 00:28 Ordered 2241: DISCUSSED CODE STATUS WITH PATIENT AND , PATIENT REPORTS "I DON'T WANT ANYTHING DONE". WHEN CLARIFIED PATIENT DOES NOT WANT CHEST COMPRESSIONS, MEDICATIONS, INTUBATION. EVALUATED PATIENT , PATIENT REQUESTS DNR STATUS, WILL COMPLY WITH PATIENTS WISHES Result Diagrams: 04/24/19 22:07 04/24/19 22:07 - EKG 1 Time of EKG reading by physician:: 22:06 EKG Read and Signed by:: Adalberto Ortiz EKG Interpretation (*Must complete 3 of following elements*): Abnormal Rate: 63 Rhythm: A-FIB [place]: left QRS: normal ME Interval: normal ST Wave: non-specific ST changes Prior EKG Comparison: changes noted (NOW IN AFIB) - XRAY 1 XRAY Study: Chest Impression: Abnormal (CONTINUED LLL INFILTRATE, R SIDED PLEURAL EFFUSION) Comparison with other Films: no prior study 2 XRAY: Left XRAY Study: Foot Impression: Abnormal (NO FX OR DISLOCATION) - CT/MRI 1 CT Study: Angiogram, Thorax Impression: Abnormal (1. NO PE 2. DENSE CONSOLIDATION LM AND LLL 3.PROMINENT MULIFOCAL AIRSPACE OPACITIES BILATERALLY 4. POSSIBLE EARLY CAVITATION IN THE LLL 5.ASCENDING AORTA IS DIALATED AT 4.2 CM) - CONSULTS/PCP/HOSPITALIST Notification #1 *Consult/PCP/Hospitalist*: DR. COOK Time Discussed: 00:26 Consult Disposition: Admit Departure - Departure Date of Disposition Decision: 04/25/19 Time of Disposition Decision: 00:18 DIAGNOSIS: Shortness of breath, Lung cancer, CHF exacerbation, Pneumonia, A-fib Disposition: ADMITTED INPATIENT 09 Certified Medical Emergency: Emergent Condition: Fair Referrals and Follow-Ups: None,PCP [Primary Care Provider] - - Critical Care Note This patient required my direct & personal management of CC.: No Attestation - Physician/ ADALGISA Attestation Patient care was provided by Advanced Practice Provider:: Yes Advanced Practice Provider:: Amanda Randle Advanced Practice Provider documentation review:: The Mid-level provider documentation, treatment plan and medical decision making was reviewed by the physician who agrees with all treatment and medical decision making by the MLP. The physician spent face to face time with patient:: No Advanced Practice Provider documentation review:: Supervising physician onsite and consulted in the evaluation and care of this patient. The physician did not have a face to face encounter with the patient.
[2019-04-24 22:24] LABS: BASO# 0.02 X1000 (0.0-0.2); BASO% 0.2 % (0.0-0.8); EOS% 0.9 % (0.0-10.0); HEMOGLOBIN 13.1 g/dL (14.0-18.0); IMM GRAN# 0.09 X1000 (0.0-0.04); IMM GRAN% 0.8 % (0.0-0.5); LYMPH# 0.91 X1000 (1.2-3.4); LYMPH% 8.5 % (20.5-51.1); MCH 26.1 PG (27-31); MCHC 30.5 g/dL (33-37); MCV 85.8 FL (81-99); MONO# 0.83 X1000 (0.11-0.59); MONO% 7.7 % (1.7-9.3); MPV 8.8 FL (7.4-10.4); NEUT# 8.77 X1000 (1.4-6.5); NEUT% 81.9 % (42.2-75.2); PLT 227 X1000 (130-400); RBC 5.01 XMIL (4.7-6.1); RDW 18.7 % (11.5-14.5); WBC 10.72 X1000 (4.8-10.8)
[2019-04-24 22:27] LABS: ALLEN TEST YES; MODALITY CANNULA
[2019-04-24 22:31] LABS: INR 1.06; PROTIME 14.3 Seconds (11.0-16.0)
[2019-04-24 22:37] LABS: AGAP 10; ALBUMIN 3.4 g/dL (3.5-5.0); ALKALINE PHOSPHATASE 123 U/L (32-122); BUN 27 mg/dL (8-22); CALCIUM 8.8 mg/dL (8.8-10.2); CHLORIDE 95 mmol/L (98-107); CK PROFILE 12 U/L (24-204); COSMO 280; ESTIMATED GFR > 60; GLUCOSE 120 mg/dL (70-104); GOT 28 U/L (10-34); GPT 98 U/L (10-44); MAGNESIUM 1.7 mg/dL (1.5-2.7); POTASSIUM 4.4 mmol/L (3.5-5.1); SODIUM 137 mmol/L (136-145); TCO2 33 mmol/L (25-35)
[2019-04-24 22:41] LABS: URINE SOURCE CLEAN CATCH
[2019-04-24 22:49] LABS: BILIRUBIN URINE NEGATIVE (NEGATIVE); BLOOD URINE NEGATIVE (NEGATIVE); COLOR YELLOW; GLUCOSE URINE NEGATIVE (NEGATIVE); KETONE URINE NEGATIVE (NEGATIVE); PH URINE 6.5; PROTEIN URINE NEGATIVE (NEGATIVE); SP GRAVITY URINE 1.021; TURBIDITY URINE CLEAR (CLEAR)
[2019-04-24 22:50] LABS: LEUKOCYTES URINE NEGATIVE (NEGATIVE); NITRITE URINE NEGATIVE (NEGATIVE); UROBILINOGEN URINE 2 mg/dL (NORMAL)
[2019-04-24 22:58] LABS: UR EPITHELIAL CELLS <10 /HPF (<10); URINE BACTERIA 1+ /HPF; URINE RBC <10 /HPF (<10); URINE WBC <10 /HPF (<10)
[2019-04-24] MEDS ORDERED: LASIX IV ONE (23:02)
[2019-04-25] MEDS ORDERED: LEVAQUIN 500 MG/D5W 500 MG/100 ML IVPB IV ONE (00:16)
[2019-04-25 03:17] LABS: BASO# 0.01 X1000 (0.0-0.2); BASO% 0.1 % (0.0-0.8); EOS# 0.01 X1000 (0.0-0.7); EOS% 0.1 % (0.0-10.0); HEMOGLOBIN 12.8 g/dL (14.0-18.0); IMM GRAN# 0.09 X1000 (0.0-0.04); IMM GRAN% 0.9 % (0.0-0.5); LYMPH# 0.82 X1000 (1.2-3.4); LYMPH% 7.8 % (20.5-51.1); MCH 26.5 PG (27-31); MCHC 31.2 g/dL (33-37); MCV 84.9 FL (81-99); MONO# 0.57 X1000 (0.11-0.59); MONO% 5.4 % (1.7-9.3); MPV 8.6 FL (7.4-10.4); NEUT# 9.07 X1000 (1.4-6.5); NEUT% 85.7 % (42.2-75.2); PLT 213 X1000 (130-400); RBC 4.83 XMIL (4.7-6.1); RDW 18.7 % (11.5-14.5); WBC 10.57 X1000 (4.8-10.8)
[2019-04-25 03:57] LABS: AGAP 11; ALBUMIN 3.4 g/dL (3.5-5.0); ALKALINE PHOSPHATASE 114 U/L (32-122); BUN 26 mg/dL (8-22); CHLORIDE 93 mmol/L (98-107); COSMO 281; CREATININE 0.9 mg/dL (0.7-1.2); ESTIMATED GFR > 60; GLUCOSE 136 mg/dL (70-104); GOT 24 U/L (10-34); GPT 92 U/L (10-44); POTASSIUM 4.6 mmol/L (3.5-5.1); SODIUM 137 mmol/L (136-145); TCO2 33 mmol/L (25-35); TOTAL PROTEIN 6.6 g/dL (6.3-8.3)
[2019-04-25] MEDS ORDERED: KLOR-CON PO PRN (04:52)
[2019-04-25] MEDS: NORCO-5 PO PRN ×2 (05:26→20:22)
[2019-04-25] MEDS ORDERED: PRILOSEC PO SCH (07:00)
--- NOTE | 2019-04-25 07:08 | Diag Imaging Result Doc PS360 ---
EXAM: CHEST-PORTABLE - 04/24/2019 HISTORY: SOB TECHNIQUE: Portable chest COMPARISON: 04/03/2019 FINDINGS: There are left basilar infiltrate and small bilateral pleural effusions similar to prior. There is mild prominence of markings at the right base. There is no evidence of pneumothorax. Heart size appears within normal limits. Central venous catheter remains in place. IMPRESSION: Left basilar infiltrate and small bilateral pleural effusions similar to prior. Mild prominence of right basilar markings. Electronically signed by Morgan Meyers 04/25/2019 7:06 AM
--- NOTE | 2019-04-25 07:18 | Diag Imaging Result Doc PS360 ---
EXAM: FOOT COMPLETE LEFT - 04/24/2019 HISTORY: BRUISING, SWELLING TECHNIQUE: Left foot three views COMPARISON: None. FINDINGS: There is calcaneal spurring at the Achilles tendon and plantar fascia insertions. There are multiple hammertoe deformities. There are some osteoarthritic changes. There are no erosive or destructive changes identified. There is accessory ossicle near the plantar cuboid. There is soft tissue swelling at the forefoot. There is no fracture, dislocation, or opaque foreign body identified. There are some atherosclerotic calcifications noted. IMPRESSION: No evidence of fracture or dislocation. Electronically signed by Morgan Meyers 04/25/2019 7:16 AM
[2019-04-25] MEDS: DUONEB (A & A) INH SCH ×2 (07:29→11:13)
[2019-04-25] MEDS ORDERED: VANCOMYCIN IV PER PHARMACY MISC SCH (07:30)
[2019-04-25] MEDS: FLOMAX PO SCH (08:00)
[2019-04-25] MEDS: ELIQUIS PO SCH ×2 (08:00→20:11)
[2019-04-25] MEDS: PREDNISONE PO SCH (08:00)
[2019-04-25] MEDS: PAXIL PO SCH (08:00)
[2019-04-25] MEDS: LASIX IV SCH ×2 (08:11→20:11)
[2019-04-25] MEDS: MAXIPIME 1 GM in NS 50 ML IV SCH ×2 (08:12→20:11)
--- NOTE | 2019-04-25 08:18 | Diag Imaging Result Doc PS360 ---
EXAM: CT ANGIOGRAM PULMONARY ARTERIES - 04/24/2019 HISTORY: SOB, ELEVATED D-DIMER TECHNIQUE: CT angiogram pulmonary arteries with intravenous contrast axial, coronal, and 3-D MIP images are obtained. COMPARISON: 06/10/2018 FINDINGS: There are no filling defects identified pulmonary arteries. There is no indication of aortic dissection. There is apparent chronic airspace disease at the left mid and lower lung with chronic or recurrent small left pleural effusion. There is ill-defined low-density within the left airspace disease which may relate to some necrosis. There are multiple masslike opacities, which are most prominent at the right lower lobe. These are overall decreased compared to prior. There is no evidence of pneumothorax. There are no abnormally enlarged mediastinal lymph nodes identified. IMPRESSION: No evidence of pulmonary embolism. Apparent chronic left medial lower lung airspace disease with chronic small left pleural effusion. Ill-defined low-density within the left airspace disease which may relate to necrosis. Multiple masslike densities which are most prominent at the right lower lobe. These have overall decreased compared to the prior exam. The on-call radiologist provided preliminary results at 12:13 AM on 04/25/2019. Electronically signed by Morgan Meyers 04/25/2019 8:15 AM
--- NOTE | 2019-04-25 08:33 | EKG Report ---
Test Performed on : 04/24/2019 10:05:59 PM Test Reason : ER Blood Pressure : / mmHG Vent. Rate : 063 BPM Atrial Rate : 394 BPM P-R Int : 000 ms QRS Dur : 078 ms QT Int : 386 ms P-R-T Axes : 000 -32 053 degrees QTc Int : 395 ms Atrial fibrillation. Left axis deviation Septal infarct (cited on or before 21-MAR-2019) Abnormal ECG When compared with ECG of 05-APR-2019 08:56, Vent. rate has decreased BY 76 BPM Questionable change in initial forces of Septal leads Confirmed by Janes Alexander MD ([id number]), movie editor Katie Pollock ([id number]) on 06/06/2019 12:37:43 PM
[2019-04-25] MEDS ORDERED: CARDIZEM CD PO SCH (09:00)
[2019-04-25] MEDS ORDERED: LASIX IV SCH (09:00)
[2019-04-25] MEDS ORDERED: TOPROL XL PO SCH (09:00)
[2019-04-25] MEDS: VANCOMYCIN 2,000 MG in NS 500 ML IV SCH (10:04)
--- NOTE | 2019-04-25 11:05 | HISTORY AND PHYSICAL ---
PRIMARY CARE PROVIDER: Dr. Rocha. CHIEF COMPLAINT: Shortness of breath, lower extremity edema and left foot bruising. HISTORY OF PRESENT ILLNESS: Mr. Grove is a 73-year-old gentleman with a history of stage IV metastatic bronchoalveolar carcinoma, hypertension, arthritis, chronic hypoxemic respiratory failure on home O2, atrial fibrillation, chronic joint pain, most recently discharged from our service on 04/06/2019 with postobstructive pneumonia, atrial fibrillation with RVR, was sent home with home health. He was seen and evaluated by palliative care. He is a DNR level 1. Per the notes it does not look like he was quite ready for hospice. He is not currently receiving any treatment for his stage IV lung cancer and is not wanting any. He reported about 5 days ago he started to notice lower extremity edema. He went and saw his primary care physician and was given Lasix, then he started to notice some bruising around his left foot. He reports no injuries to that foot. The swelling and the bruising continue to worsen despite the Lasix. He also reported his breathing continued to worsen. He started having some chills last night so he decided to come to the ED to be evaluated. Chest x-ray showed left basilar infiltrate and small bilateral pleural effusions and mild prominence of the right basilar markings. Foot x-ray showed soft tissue swelling, but no fracture, dislocation, or foreign bodies identified. He was found to have an elevated D-dimer so they did a pulmonary arteriogram. Currently awaiting those results as well as an elevated proBNP. He does not have a history of heart failure. He was given a dose of IV Lasix and initiated IV antibiotics. We will broaden his antibiotics for postobstructive pneumonia secondary to his lung cancer. Continue with bronchodilators and supplemental O2 and aggressive pulmonary toilet. PAST MEDICAL HISTORY: As per HPI. PAST SURGICAL HISTORY: Right lower lobe and right middle lobectomy. SOCIAL HISTORY: No alcohol, tobacco, or illicit drug use. He is . He does have children. His daughter recently had a stroke. I believe she is staying with him at this time and does have home health coming to the residence to visit her along with his home health. He does have home O2 and a walker. FAMILY HISTORY: Positive for heart disease with his mother and father. Father had COPD. ALLERGIES: No known drug allergies. HOME MEDICATIONS: 1. Xanax 0.25 mg p.o. daily. 2. Berwick 5/325 one each p.o. t.i.d. p.r.n. 3. Lasix 40 mg p.o. daily. 4. Paxil 10 mg p.o. daily. 5. Potassium chloride 20 mEq p.o. daily. 6. Prednisone 10 mg p.o. daily. 7. Toprol-XL 25 mg p.o. daily. 8. Atrovent nebulizer 0.5 mg inhaled q.6 hours. 9. Cardizem CD 240 mg p.o. daily. 10. Eliquis 5 mg p.o. b.i.d. 11. Flomax 0.4 mg p.o. daily. REVIEW OF SYSTEMS: Twelve-point review of systems completely negative except for those mentioned in HPI. PHYSICAL EXAMINATION: VITAL SIGNS: Temperature is 97.8 degrees, heart rate 67, respirations 14, blood pressure 122/58, O2 is 99% on 3 L nasal cannula. GENERAL: Mr. Grove is a pleasant 73-year-old gentleman who is sitting up in the bed shaving. O2 is off in no acute distress. HEENT: Atraumatic, normocephalic. PERRL. NECK: Supple. Trachea midline. I did not really appreciate any JVD. CARDIOVASCULAR: S1, S2 appreciated. No murmurs, gallops, rubs noted. He does have 2+ pitting edema to bilateral lower extremities. PULMONARY: No rales, rhonchi or wheezes. Some scattered rhonchi. ABDOMEN: Soft, nontender, nondistended. Positive bowel sounds in all 4 quadrants. NEUROLOGIC: No focal deficits noted. MUSCULOSKELETAL: He does have bruising to his left foot on the dorsal surface. LAB/DIAGNOSTIC DATA: Chest x-ray: Left basilar infiltrate and small bilateral effusions similar to prior. Mild prominence of the right basilar markings. Foot x-ray: Soft tissue swelling at the forefront. There is no fracture, dislocation or opaque foreign body identified. There is some atherosclerotic calcifications noted. Pulmonary arteriogram has now resulted in no evidence of PE. Apparent left medial lower lung airspace disease with chronic small left pleural effusion. Ill-defined low-density within the left airspace disease which may relate to necrosis. Multiple masslike densities which are most prominent at the lower right lower lobe. These have overall decreased compared to prior exam. ASSESSMENT AND PLAN: 1. Persistent left lower lobe pneumonia, possibly postobstructive related to his bronchoalveolar carcinoma. We will place him on vancomycin and cefepime, bronchodilators, supplemental O2. Blood cultures have been obtained. 2. Known stage IV metastatic bronchoalveolar carcinoma. 3. Hypoxemia upon arrival, improved with increase of his home O2, currently saturating well on 3L. 4. Pitting bilateral lower extremity edema. We will continue with b.i.d. IV Lasix. He had an elevated proBNP. We will recheck his proBNP in the morning. Check an echocardiogram. No history of heart failure. 5. Atrial fibrillation rate. We will continue his Cardizem. 6. Hypertension. Continue home medications. 7. Arthritis in bilateral shoulders and hips. We will continue home pain regimen. 8. Do Not Resuscitate level 1. Palliative Care has already been consulted. 9. Further recommendations to follow physician evaluation, laboratory and diagnostic data. Dictated by MATEUS Arreaga for Jamel Pressley MD cc: Jamel Pressley MD [facility]
[2019-04-25] MEDS ORDERED: LOPRESSOR IV PRN (14:25)
[2019-04-25] MEDS: DUONEB (A & A) INH PRN (15:01)
--- NOTE | 2019-04-25 15:23 | PROGRESS NOTE ---
DATE: 04/25/2019 SUBJECTIVE: He is being admitted. The patient is short of breath. He has got some swelling. He was very clear to me that I put him on Cardizem and that's what has made his swelling worse. I explained to him that he was in atrial fibrillation with RVR and that is why we had to do Cardizem. I discussed with him increasing his Toprol and he said no because increasing the Toprol, made his blood pressure worse. I explained to him we would have to treat his atrial fibrillation and I will consult a sheltered workshop executive director, so they can explain it to him so he understands what is going on. It is certainly possible Cardizem as the calcium channel lizzie has increased his peripheral edema. It is also possible that he has uncontrolled atrial fibrillation and heart failure. So we are going to workup his heart failure echo. It looks like he has got pneumonia versus possible carcinomatosis. Patient wants no treatment. No chemo nothing at all. He is a DNR 1. We will treat his overload state as well and try to accomplish the goals of care within the realms of what he is limiting us to. I will continue to follow. This is a [id number] encounter note with Amelie Persaud. cc: Jamel Pressley MD
--- NOTE | 2019-04-25 17:26 | Vascular Study Report ---
EXAM: Venous U/S Left Leg - 04/25/2019 HISTORY: swelling TECHNIQUE: Left lower extremity Doppler venous ultrasound COMPARISON: None. FINDINGS: The deep veins of the left lower extremity demonstrate flow, with compressibility and augmentation. There are no filling defects identified. IMPRESSION: No evidence of left lower extremity deep venous thrombosis. Electronically signed by Mrogan Meyers 04/25/2019 5:23 PM
--- NOTE | 2019-04-25 17:31 | CARDIOLOGY CONSULTATION ---
DATE: 04/25/2019 REASON FOR CONSULTATION: Cardiology was consulted for atrial fibrillation. HISTORY OF PRESENT ILLNESS: Mr. Travis Grove is a 73-year-old gentleman who has stage IV metastatic bronchoalveolar carcinoma, history of hypertension, chronic hypoxemic respiratory failure who was discharged from the hospital on 04/06/2019 with postobstructive pneumonia, atrial fibrillation with rapid ventricular rate. He was initially diagnosed to have lung cancer in 2003, subsequently underwent chemotherapy in 2004, and surgery for the same and right lower and middle lobectomy. He was noted to have metastatic spread to the left lung and had treatment for 8 years following that, and he has not had any chemotherapy. He has been doing well. The patient and his oncologist decided to not treat him with chemotherapy. He was admitted with pneumonia in June again recently and was told he had atrial fibrillation. He was discharged home on Cardizem CD 240 mg a day; however, he says he has been taking Cardizem CD 240 and diltiazem 240, which is about 480 mg of Cardizem for the last 2 weeks. He comes in with increasing lower extremity edema with discoloration and bruising on his left foot, and also he reports increasing shortness of breath with orthopnea. He denies chest pain suggestive of angina. He had some chills prior to admitting to the emergency room. His chest x-ray revealed left basilar infiltrate, small bilateral pleural effusion. Foot x-ray revealed no fracture dislocation. He was found to have an elevated D-dimer and pulmonary arteriogram was done, which revealed dense consolidation atelectasis of the left middle and lower lung, multifocal airspace opacities bilaterally. No pulmonary embolism. He was started on IV antibiotics. From a cardiac standpoint, does not perceive any palpitations. Exercise capacity is significantly limited. He was orthopneic when he came in. No previous cardiac history until the recent diagnosis of atrial fibrillation. PAST MEDICAL HISTORY: 1. Metastatic bronchoalveolar carcinoma. 2. Hypertension. 3. Arthritis. 4. Chronic respiratory failure. 5. Recent diagnosis of atrial fibrillation. 6. Chronic joint pain. 7. Status post right lower and middle lobe lobectomy. MEDICATIONS AT HOME: Include Lasix 40 mg p.r.n., prednisone 10, potassium supplements, paroxetine 10 mg daily, metoprolol 25 mg a day, diltiazem 240 mg. He has been taking 1 tablet twice daily, Eliquis 5 mg b.i.d., tamsulosin, hydrocodone.Allergies: He is allergic to acetaminophen, aspirin, caffeine. Review of Systems: A 14-point review of systems was done. GI System: There is no history of nausea. There is no history of vomiting or diarrhea. There is no hematemesis or melena. Central nervous system: No focal weakness to suggest a CVA or TIA. System: There is no dysuria or hematuria. PHYSICAL EXAMINATION: Vital Signs: Blood pressure was 122/58, heart rate 60 and irregular. First and second heart sounds were heard. There was no S3 gallop. Respiratory System: Examination revealed scattered bilateral rhonchi. Abdomen: Soft, nontender. There was no guarding or rigidity. Bowel sounds were heard. Extremities: Examination of his extremities revealed bilateral pitting pedal edema with bruising on his left foot with palpable pulses. ASSESSMENT AND PLAN: 1. Mr. Robles is a 73-year-old gentleman with history of stage IV bronchioloalveolar cancer, multiple admissions with recurrent pneumonia this year, has persistent left lower lobe pneumonia, history of hypertension, arthritis, chronic hypoxemic respiratory failure who is admitted with increasing pedal edema and orthopnea. CT scan suggestive of a pneumonic process. He has been started on antibiotics. 2. From a cardiac standpoint, we will get an echocardiogram to assess cardiac and valvular function. 3. As far as atrial fibrillation is concerned, he was discharged home on Cardizem; however, he has been taking Cardizem 240 mg twice daily in addition to Toprol-XL 25 recently, has noticed increasing pedal edema. He is DNR level 1. As far as medications are concerned, he does not want to be on Cardizem. We will change his medications to Toprol-XL 50 mg twice daily for rate control as well that would help control his blood pressure. 4. He is anticoagulated for stroke prophylaxis with Eliquis. I have not made any changes. 5. He has significant pedal edema, started on Lasix. this could be mutifactorial in addition to cardiac function and or medications. We will get an echocardiogram to assess his systolic and valvular function, and we will make further recommendations. Thank you for the consult. cc: Papa Avendano MD [facility] CENTERNikhil
--- NOTE | 2019-04-25 21:18 | ECHO REPORT ---
ORDER DATE: 04/25/2019 2D ECHOCARDIOGRAM: ECHOCARDIOGRAPHIC MEASUREMENTS: 1. Interventricular septum 1.3. 2. Left ventricular posterior wall 1.3. 3. Diastolic diameter 5.4 4. Left atrium 4.6. 5. Aorta 3.5. SUMMARY: 1. Atrial fibrillation was noted. 2. Normal left ventricular cavity size. 3. Concentric left ventricular hypertrophy. 4. Estimated ejection fraction of 65%. 5. There is biatrial enlargement. 6. Aortic valve leaflets are trileaflet. 7. Mitral valve was normal. 8. There is mitral annular calcification. 9. Tricuspid valve was normal. 10. Poor apical windows. 11. There is mild mitral regurgitation. 12. Mild tricuspid regurgitation. 13. Peak velocity across the tricuspid valve was less than 2 m/sec. 14. Peak velocity across the aortic valve less than 2 m/sec. 15. There is no aortic stenosis. 16. There is mild aortic regurgitation. 17. Normal right ventricular cavity size and function. 18. There is no pericardial effusion or obvious intracardiac mass or thrombus seen. 19. There is left atrial enlargement. cc: Papa Avendano MD
[2019-04-26] MEDS ORDERED: LEVAQUIN 250 MG/D5W 250 MG/50 ML IVPB IV SCH (01:00)
[2019-04-26] MEDS: DUONEB (A & A) INH PRN ×2 (03:08→14:09)
[2019-04-26 07:06] LABS: BASO# 0.01 X1000 (0.0-0.2); BASO% 0.1 % (0.0-0.8); EOS# 0.06 X1000 (0.0-0.7); EOS% 0.7 % (0.0-10.0); HEMATOCRIT 40.3 % (42.0-52.0); HEMOGLOBIN 12.5 g/dL (14.0-18.0); IMM GRAN# 0.08 X1000 (0.0-0.04); IMM GRAN% 0.9 % (0.0-0.5); LYMPH# 1.16 X1000 (1.2-3.4); LYMPH% 13.6 % (20.5-51.1); MCH 26.4 PG (27-31); MONO# 0.84 X1000 (0.11-0.59); MONO% 9.9 % (1.7-9.3); MPV 8.8 FL (7.4-10.4); NEUT# 6.37 X1000 (1.4-6.5); NEUT% 74.8 % (42.2-75.2); PLT 232 X1000 (130-400); RBC 4.74 XMIL (4.7-6.1); RDW 18.1 % (11.5-14.5); WBC 8.52 X1000 (4.8-10.8)
[2019-04-26 07:18] LABS: AGAP 10; ALBUMIN 3.2 g/dL (3.5-5.0); ALKALINE PHOSPHATASE 101 U/L (32-122); BUN 31 mg/dL (8-22); CALCIUM 8.8 mg/dL (8.8-10.2); CHLORIDE 92 mmol/L (98-107); COSMO 280; CREATININE 0.9 mg/dL (0.7-1.2); ESTIMATED GFR > 60; GLUCOSE 97 mg/dL (70-104); GOT 18 U/L (10-34); GPT 65 U/L (10-44); MAGNESIUM 1.8 mg/dL (1.5-2.7); SODIUM 137 mmol/L (136-145); TCO2 35 mmol/L (25-35); TOTAL PROTEIN 6.3 g/dL (6.3-8.3)
--- NOTE | 2019-04-26 08:09 | Diag Imaging Result Doc PS360 ---
CHEST-1 VIEW - 04/26/2019 INDICATION: PNA COMPARISON: 04/24/2019 FINDINGS: Stable left chest port in good position. Stable bilateral pleural effusions left greater than right. No new infiltrates. Heart size remains normal. Stable low lung volumes. IMPRESSION: No change from prior. Electronically signed by Bolivar Rodriguez 04/26/2019 8:07 AM
[2019-04-26] MEDS: MAXIPIME 1 GM in NS 50 ML IV SCH ×2 (09:29→20:19)
[2019-04-26] MEDS: FLOMAX PO SCH (09:30)
[2019-04-26] MEDS: ELIQUIS PO SCH (09:30)
[2019-04-26] MEDS: PREDNISONE PO SCH (09:30)
[2019-04-26] MEDS: PAXIL PO SCH (09:30)
[2019-04-26] MEDS: TOPROL XL PO SCH (09:30)
[2019-04-26] MEDS: LASIX IV SCH ×2 (09:30→18:53)
[2019-04-26] MEDS: NORCO-5 PO PRN ×2 (09:31→20:19)
[2019-04-26] MEDS: VANCOMYCIN 2,000 MG in NS 500 ML IV SCH (10:17)
--- NOTE | 2019-04-26 15:52 | PROGRESS NOTE ---
DATE: 04/26/2019 Today he says he cannot breathe, but he is kind of sleepy. SUBJECTIVE: Patient has no major complaints except his foot hurts. OBJECTIVE: Vital Signs: Blood pressure is 128/49, heart rate 84, respiratory rate 20, temperature 97.4 degrees, 100% on 3 L. Cardiovascular: Regular rate and rhythm. Pulmonary: Bilateral breath sounds clear to auscultation. GI: Soft, nontender, nondistended. Bowel sounds were positive. Lower Extremities: His foot he does have yellowish discoloration today. He has a new kind of bright red patch which still looks to me like petechia, but it is painful to touch. DATA: White count is 8, hemoglobin and hematocrit 12 and 40, platelets 232,000. Chemistries are okay. ProBNP is still up. PROBLEM LIST: 1. Congestive heart failure exacerbation or presumably pulmonary edema due to atrial fibrillation. We will continue diuretics and follow. 2. Atrial fibrillation. Appreciate Dr. Avendano's input. We are just going to do Toprol-XL at increased dose. 3. Left lower lobe pneumonia, possibly postobstructive. He is on vancomycin and cefepime. We will continue treatments and follow. He may have some early cellulitis in his foot, but he is on vancomycin and that should be appropriate treatment. DISPOSITION: Pending his clinical status. He has poor prognosis. He has bronchoalveolar cancer that he does not want any treatment for. He is a DNR, but then there are a lot of these, what I would say smaller issues that kind of get obsessed over despite the fact that he does not want to be aggressive in the larger scale issues. We will continue to optimize his breathing and try to get him home. I think I agree hospice would be appropriate. I do not think a Palliative Care consult was ever accomplished though and I do not think they are going to be amenable to hospice but, in any case, we will continue to work with them. cc: Jamel Pressley MD
[2019-04-26 17:17] LABS: BE 9.9 mmoll (-3.0-3.0); BLOOD TYPE ARTERIAL; HCO3-(ACT) 32.6 mmoll (20.0-26.0); METHB 1.3 % (0.0-1.5); O2(CT) 18.3 mL/dL (15.0-23.0); O2HB 95.4 % (95.0-99.0); PO2(98.6) 93 mmHg (60-100); SAMPLE BLOOD; SAO2 98.7 % (95.0-100.0); THB 13.6 g/dL (11.5-17.4); pH(98.6) 7.44 (7.35-7.45)
[2019-04-26 17:24] LABS: ALLEN TEST NO; MODALITY CANNULA; PCO2(98.6) 53 mmHg (35-45)
[2019-04-26] MEDS: XANAX PO PRN (20:19)
[2019-04-27] MEDS: DUONEB (A & A) INH PRN ×4 (02:28→21:27)
[2019-04-27 05:47] LABS: AGAP 11; BUN 30 mg/dL (8-22); CALCIUM 8.5 mg/dL (8.8-10.2); CHLORIDE 93 mmol/L (98-107); COSMO 279; CREATININE 0.7 mg/dL (0.7-1.2); ESTIMATED GFR > 60; GLUCOSE 140 mg/dL (70-104); MAGNESIUM 1.9 mg/dL (1.5-2.7); SODIUM 135 mmol/L (136-145); TCO2 32 mmol/L (25-35)
[2019-04-27] MEDS ORDERED: LOVENOX SUBQ SCH (06:00)
[2019-04-27 06:03] LABS: BASO# 0.01 X1000 (0.0-0.2); BASO% 0.1 % (0.0-0.8); EOS# 0.06 X1000 (0.0-0.7); EOS% 0.7 % (0.0-10.0); HEMATOCRIT 39.1 % (42.0-52.0); IMM GRAN# 0.06 X1000 (0.0-0.04); IMM GRAN% 0.7 % (0.0-0.5); LYMPH# 0.97 X1000 (1.2-3.4); LYMPH% 11.7 % (20.5-51.1); MCHC 30.7 g/dL (33-37); MCV 84.8 FL (81-99); MONO# 0.81 X1000 (0.11-0.59); MONO% 9.8 % (1.7-9.3); MPV 8.8 FL (7.4-10.4); NEUT# 6.35 X1000 (1.4-6.5); PLT 220 X1000 (130-400); RBC 4.61 XMIL (4.7-6.1); RDW 17.8 % (11.5-14.5); WBC 8.26 X1000 (4.8-10.8)
[2019-04-27] MEDS: LASIX IV SCH ×2 (06:24→07:09)
[2019-04-27] MEDS: MAXIPIME 1 GM in NS 50 ML IV SCH ×2 (08:25→21:34)
[2019-04-27] MEDS: TOPROL XL PO SCH (08:25)
[2019-04-27] MEDS: PREDNISONE PO SCH (08:25)
[2019-04-27] MEDS: NORCO-5 PO PRN (08:25)
[2019-04-27] MEDS: PAXIL PO SCH (08:26)
[2019-04-27] MEDS: FLOMAX PO SCH (08:26)
[2019-04-27] MEDS: VANCOMYCIN 2,000 MG in NS 500 ML IV SCH (11:19)
--- NOTE | 2019-04-27 14:23 | PROGRESS NOTE ---
DATE: 04/27/2019 SUBJECTIVE: His breathing may be a little bit better. His foot is still very sore. He is complaining a lot about that. OBJECTIVE: Vital Signs: Blood pressure is 93/54, heart rate 85, respiratory rate 20, temperature 98.2 degrees, satting 97% on 3 L. Cardiovascular: Regular rate and rhythm. Pulmonary: Bilateral breath sounds. Clear to auscultation. GI: Soft, nontender, nondistended. Bowel sounds are positive. LABORATORY DATA: White count is 8, hemoglobin and hematocrit 12 and 39, platelets 220. Electrolytes were okay. Mag 1.9. PROBLEM LIST: 1. Congestive heart failure exacerbation, diastolic, acute. I am going to decrease his diuretics because he seems like he is improving. 2. Atrial fibrillation. He is on Toprol. We are holding his anticoagulation just because he has had a lot of petechial hemorrhage along his left foot, which I am not sure if this is an early cellulitis. He has been on vancomycin and cefepime. I am going to switch the vancomycin to Zyvox and we will also evaluate for gout, and we will continue to monitor. This is really a major thing for him, limiting him getting up. 3. Bronchioloalveolar cancer. He does not want anything done for that. We are continuing to monitor. 4. Left lower lobe pneumonia. He is on vancomycin and cefepime. The vancomycin has been since the twenty-third, so 3 days, and cefepime also for 3 days. Continue pulmonary toilet and follow. DISPOSITION: He does not want to go to rehab, but he is also not ambulating. It is a difficult situation because he is not motivated to do anything, but then he is just difficult to kind to get things up and around. He is a DNR. We will work with him as far as I think trying to get home when he is more comfortable. cc: Jamel Pressley MD
[2019-04-27] MEDS: XANAX PO PRN (15:02)
[2019-04-27] MEDS: ZYVOX 600 MG/D5W 600 MG/300 ML IVPB IV SCH (15:02)
[2019-04-27] MEDS: NORCO-7.5 PO PRN (21:33)
[2019-04-28] MEDS: ZYVOX 600 MG/D5W 600 MG/300 ML IVPB IV SCH ×2 (02:45→13:26)
[2019-04-28 06:53] LABS: BASO# 0.01 X1000 (0.0-0.2); BASO% 0.1 % (0.0-0.8); EOS# 0.07 X1000 (0.0-0.7); HEMATOCRIT 39.1 % (42.0-52.0); IMM GRAN# 0.05 X1000 (0.0-0.04); IMM GRAN% 0.7 % (0.0-0.5); LYMPH# 0.92 X1000 (1.2-3.4); LYMPH% 13.4 % (20.5-51.1); MCHC 30.7 g/dL (33-37); MCV 84.8 FL (81-99); MONO# 0.69 X1000 (0.11-0.59); MPV 8.4 FL (7.4-10.4); NEUT# 5.13 X1000 (1.4-6.5); NEUT% 74.8 % (42.2-75.2); PLT 199 X1000 (130-400); RBC 4.61 XMIL (4.7-6.1); RDW 17.3 % (11.5-14.5); WBC 6.87 X1000 (4.8-10.8)
[2019-04-28 07:09] LABS: AGAP 9; BUN 23 mg/dL (8-22); CALCIUM 8.4 mg/dL (8.8-10.2); CHLORIDE 94 mmol/L (98-107); COSMO 274; CREATININE 0.7 mg/dL (0.7-1.2); ESTIMATED GFR > 60; GLUCOSE 140 mg/dL (70-104); POTASSIUM 3.9 mmol/L (3.5-5.1); SODIUM 134 mmol/L (136-145); TCO2 31 mmol/L (25-35); URIC ACID 5.9 mg/dL (3.4-7.0)
[2019-04-28] MEDS: DUONEB (A & A) INH PRN ×2 (07:34→17:23)
[2019-04-28] MEDS: MAXIPIME 1 GM in NS 50 ML IV SCH ×2 (08:17→20:40)
[2019-04-28] MEDS: PAXIL PO SCH (08:18)
[2019-04-28] MEDS: TOPROL XL PO SCH (08:18)
[2019-04-28] MEDS: PREDNISONE PO SCH (08:18)
[2019-04-28] MEDS: FLOMAX PO SCH (08:19)
[2019-04-28] MEDS: LASIX IV SCH (08:19)
[2019-04-28] MEDS: NORCO-7.5 PO PRN ×2 (08:54→20:41)
--- NOTE | 2019-04-28 11:48 | PROGRESS NOTE ---
DATE: 04/28/2019 SUBJECTIVE: The patient still states that he is tired. States that he is comfortable, but frequently has shortness of breath. States he is also tired of fighting and ready to go home. OBJECTIVE: Vital Signs: Temp 98.3 degrees, pulse 82, respiratory rate 18, BP 132/59. General: The patient is very pleasant. He is sitting in the bed with his eyes closed. He does awaken and answer questions. HEENT: Normocephalic. Neck: Supple. CV: Regular rate. Chest: Decreased, but equal. Abdomen: Soft. Extremities: Moves all extremities. Skin: His left foot has an erythematous, warm area on his midfoot. ASSESSMENT: 1. Bronchoalveolar cancer, stage IV. 2. Congestive heart failure, acute diastolic. 3. Atrial fibrillation. 4. Left lower lobe pneumonia. 5. Erythema to the left foot, likely inflammatory more than infectious. PLAN: The patient currently is on Zyvox day 2 and cefepime day 4. Discussed with the family that if this is truly were cellulitis to the left lower extremity, it would be very difficult to treat as he has been on antibiotics for several days prior to this area starting. Discussed with them that his pneumonia is unlikely to completely clear given his cancer and post obstruction. 32 minutes were spent in discussion regarding hospice, DO NOT RESUSCITATE, inpatient versus outpatient care, IV morphine versus inhaled morphine. Answered questions from his son as well as his . The patient is DO NOT RESUSCITATE. We will consult with Hospice and will follow. Continue antibiotics for now. cc: Anderson Wallace MD
[2019-04-29] MEDS: ZYVOX 600 MG/D5W 600 MG/300 ML IVPB IV SCH ×2 (01:44→13:38)
[2019-04-29] MEDS: DUONEB (A & A) INH PRN ×3 (08:09→19:34)
[2019-04-29] MEDS: MAXIPIME 1 GM in NS 50 ML IV SCH ×3 (09:35→20:19)
[2019-04-29] MEDS: TOPROL XL PO SCH (09:36)
[2019-04-29] MEDS: LASIX IV SCH (09:36)
[2019-04-29] MEDS: PAXIL PO SCH (09:36)
[2019-04-29] MEDS: PREDNISONE PO SCH (09:36)
[2019-04-29] MEDS: NORCO-7.5 PO PRN ×2 (09:46→20:19)
[2019-04-29] MEDS: FLOMAX PO SCH (09:46)
--- NOTE | 2019-04-29 11:39 | PROGRESS NOTE ---
DATE: 04/29/2019 SUBJECTIVE: The patient notes that overall he does not feel well this morning, nauseated, chest pain, still short of breath. OBJECTIVE: Vital Signs: On physical examination, temperature 97, pulse 65, respiratory rate 18, BP 130/89. General: Patient is in no current respiratory distress. HEENT: Normocephalic. Neck: Supple. Cardiovascular: Regular rate. Chest: Decreased, but equal. No current wheezing. Abdomen: Soft, nondistended. Extremities: Moves all extremities. ASSESSMENT: 1. Atrial fibrillation. 2. Congestive heart failure, diastolic. 3. Left lower lobe pneumonia. Continue Zyvox day 3, cefepime day 5. 4. Do Not Resuscitate. PLAN: Will continue patient in the hospital today. Continue to follow. They did talk with hospice yesterday and are trying to decide on plans. cc: Anderson Wallace MD
[2019-04-30] MEDS: ZYVOX 600 MG/D5W 600 MG/300 ML IVPB IV SCH ×2 (01:59→13:50)
[2019-04-30] MEDS: XANAX PO PRN (02:09)
[2019-04-30] MEDS: NORCO-7.5 PO PRN ×4 (02:09→22:55)
[2019-04-30] MEDS: DUONEB (A & A) INH PRN ×3 (02:12→21:51)
[2019-04-30] MEDS: PREDNISONE PO SCH (09:27)
[2019-04-30] MEDS: LASIX IV SCH (09:27)
[2019-04-30] MEDS: TOPROL XL PO SCH (09:27)
[2019-04-30] MEDS: PAXIL PO SCH (09:27)
[2019-04-30] MEDS: FLOMAX PO SCH (09:28)
[2019-04-30] MEDS: MAXIPIME 1 GM in NS 50 ML IV SCH ×2 (09:28→20:06)
--- NOTE | 2019-04-30 18:03 | PROGRESS NOTE ---
DATE: 04/30/2019 SUBJECTIVE: Patient notes he is feeling a little bit better. He is having less nausea. Denies any other symptoms. Still having shortness of breath. PHYSICAL EXAMINATION: Vital Signs: Reviewed. Temperature 97 degrees, pulse 87, respiratory rate 18, BP 100/52. General: The patient is pleasant. He is in no distress. HEENT: Normocephalic. Neck: Supple. Cardiovascular: Regular rate. Chest: Clear, although decreased breath sounds. Abdomen: Soft. Extremities: Moves all extremities. ASSESSMENT: 1. Congestive heart failure with mild exacerbation, chronic diastolic. 2. Atrial fibrillation. 3. Bronchioloalveolar cancer with postobstructive pneumonia. 4. Left lower lobe pneumonia. PLAN: We are going to continue patient in the hospital. Continue to answer questions and encourage him to get out of bed to the chair. We will continue to follow. Hopefully, he will be ready for discharge over the next few days to rehab. cc: Anderson Wallace MD
[2019-05-01] MEDS: XANAX PO PRN ×2 (05:04→12:26)
[2019-05-01] MEDS: NORCO-7.5 PO PRN ×2 (05:04→12:26)
[2019-05-01] MEDS: MAXIPIME 1 GM in NS 50 ML IV SCH ×2 (08:58→20:50)
[2019-05-01] MEDS: PREDNISONE PO SCH (09:00)
[2019-05-01] MEDS: PAXIL PO SCH (09:00)
[2019-05-01] MEDS: LASIX IV SCH (09:01)
[2019-05-01] MEDS: TOPROL XL PO SCH ×2 (09:01→09:05)
[2019-05-01] MEDS: FLOMAX PO SCH (09:01)
[2019-05-01] MEDS: DUONEB (A & A) INH PRN ×2 (10:26→22:08)
--- NOTE | 2019-05-01 15:00 | PROGRESS NOTE ---
DATE: 05/01/2019 SUBJECTIVE: Patient has no complaints. PHYSICAL EXAMINATION: Vital Signs: Reviewed. He is afebrile. Temperature 97.7 degrees, pulse 63, respiratory rate 18, BP 130/81. General: Patient is pleasant. He is in no distress. HEENT: Normocephalic. Neck: Supple. Cardiovascular: Regular rate. Chest: Clear. No crackles. No wheezing. Abdomen: Soft, nondistended. Extremities: Moves all extremities. Skin: His left foot is less erythematous, less warm, still cleaner. ASSESSMENT: 1. Congestive heart failure, diastolic, with exacerbation. 2. Left lower lobe pneumonia due to postobstruction from his known bronchioloalveolar cancer. 3. Bronchoalveolar cancer. 4. Bruise, left foot. Certainly do not feel as though this is cellulitis. It appears more petechial hemorrhaging and bruising. Regardless, it is improving. We stopped the Zyvox yesterday. We will continue his cefepime. PLAN: Discussed possible discharge home tomorrow with hospice. cc: Anderson Wallace MD
[2019-05-02] MEDS: XANAX PO PRN (03:35)
[2019-05-02] MEDS: NORCO-7.5 PO PRN ×2 (05:50→11:21)
[2019-05-02] MEDS ORDERED: LASIX PO SCH (09:00)
[2019-05-02] MEDS: MAXIPIME 1 GM in NS 50 ML IV SCH (09:20)
[2019-05-02] MEDS: FLOMAX PO SCH (09:20)
[2019-05-02] MEDS: PREDNISONE PO SCH (09:21)
[2019-05-02] MEDS: TOPROL XL PO SCH (09:21)
[2019-05-02] MEDS: PAXIL PO SCH (09:22)
[2019-05-02] MEDS: DUONEB (A & A) INH PRN (11:58)
[2019-05-02 16:39] VITALS: BP 120/68
--- NOTE | 2019-05-03 08:41 | DISCHARGE SUMMARY ---
ADMISSION DATE: 04/25/2019 DISCHARGE DATE: 05/02/2019 HISTORY: The patient was admitted again to the hospital with bronchioloalveolar cancer, stage IV, as well as postobstructive left lower lobe pneumonia. He was felt to have a mild CHF exacerbation and was given Lasix. He was continued on antibiotics, breathing treatments and oxygen. He did improve, although did not completely resolve in the hospital. On several occasions, I personally discussed with and Ms. Grove his chronic condition and likely poor response to improvement. We discussed DNR, which he is, also discussed hospice versus home health. We discussed the different hospice agencies and they chose [facility]. The patient currently is at his baseline from a respiratory standpoint. Unfortunately, he does have chronic pain and uses chronic pain medications, which certainly is likely increasing his respiratory issues with pneumonia. Overall, he is stable, he has improved. We are going to discharge home with hospice. cc: Anderson Wallace MD
--- NOTE | 2019-05-03 11:20 | DISCHARGE SUMMARY ---
ADMISSION DATE: 04/25/2019 DISCHARGE DATE: 05/02/2019 PRIMARY CARE PHYSICIAN: Dr. Margo Rocha. ADMISSION DIAGNOSES: 1. Persistent left lower lobe pneumonia, possibly postobstructive related to his bronchial alveolar carcinoma. 2. Known stage IV metastatic bronchoalveolar carcinoma. 3. Hypoxemia, improved with increase of his home O2. 4. Bilateral lower extremity pitting edema. 5. Atrial fibrillation. 6. Hypertension. DISCHARGE DIAGNOSES: 1. Left lower lobe pneumonia due to postobstructive from known bronchial alveolar cancer. 2. Diastolic congestive heart failure with exacerbation. 3. Bronchioalveolar cancer. 4. Left foot bruise. SUMMARY OF FINDINGS: This is a 73-year-old male who presented after he was seen by his primary care physician after he had a 5-day history of noting some lower extremity edema and a bruise on his left foot. The bruising continued to worsen despite the Lasix. He also complained of shortness of breath despite his home O2. Chest x-ray showed a left basilar infiltrate and a small bilateral pleural effusion, and mild prominence at the right basilar markings. His foot x-ray showed soft tissue swelling but no fracture, dislocation, or foreign body. He was also found to have an elevated D-dimer. They did a pulmonary arteriogram that showed no evidence of pulmonary emboli. We did a bilateral lower extremity venous Doppler that showed no evidence of a left lower extremity DVT. We did consult Cardiology. We did an echocardiogram as well that showed an ejection fraction of 65%. The patient remained in atrial fibrillation. The bruising to the left foot appeared more petechial hemorrhaging and bruising, and so his antibiotics were stopped as this was not a cellulitis. He improved. There have been discussions with both the patient and his about his chronic condition, and poor response to improvement. We discussed hospice versus home health, and he has a history of chronic pain and uses chronic pain medication, which can hinder his respiratory status and improving from his pneumonia. The family and patient decided to be discharged home with Hospice. DISCHARGE MEDICATIONS: 1. Xanax 0.25 mg p.o. daily p.r.n. 2. Eliquis 5 mg p.o. b.i.d. 3. Cefdinir 300 mg p.o. b.i.d. #10 with no refills. 4. Doxycycline 100 mg p.o. b.i.d. #10 with no refills. 5. Lasix 40 mg p.o. daily. 6. Cement 5 1 p.o. t.i.d. p.r.n. 7. Atrovent nebulizer q.6 hours. 8. Metoprolol 25 mg p.o. daily. 9. Paroxetine 10 mg p.o. daily. 10. Potassium 20 mEq p.o. daily p.r.n. 11. Prednisone 10 mg p.o. daily. 12. Tamsulosin 0.4 mg p.o. daily. DISPOSITION: Again, he will go home with hospice services. Followup with Cardiology in 4 to 6 weeks, and call the office for an appointment. TIME SPENT: 35 minute discharge. Dictated by MATEUS Toure for Anderson Wallace MD cc: MATEUS Toure MD Marlin D. Gill, MD
== END 2019-05-02 18:11 | disposition hospice, home (50) ==
LOC: P.ED 22:05 → P.MEDSURG 04-25 02:36 → SUATTDRO 04-25 02:36
PROVIDERS: ATTEND Family Medicine